=== PATIENT | male | born 1965 ===

== ENCOUNTER 2016-06-17 10:59 | Inpatient (IN) | payer MEDICAID ==
[2016-06-17] MEDS ORDERED: Sodium Chloride 0.9% 500 ML IV STA (11:40)
--- NOTE | 2016-06-17 11:42 | ED PDOC ---
HPI: General Adult Time Seen by Provider: 06/17/16 11:16 Chief Complaint (Provider): Chest pain; diziness; high blood pressure History Per: Patient History/Exam Limitations: no limitations Onset/Duration Of Symptoms: Days (1 week) Have you had recent travel within the past 21 days to any of the following countries: [place], [place], [place] or [place]?: No Current Symptoms Are (Timing): Still Present Additional Complaint(s): Off and on chest pain. Also dizziness like room spinning, worse on walking. States went to the lan manager today and sent to the ED for high BP. Unclear how high or who the lan manager is. Does not know the names of his medications he takes or what medical issues he has. No numbness, tingles, headaches, weakness, numbness, tingles. No nausea, vomit. No abd pain. NIHSS Stroke Scale - Date/Time Evaluation Performed Date Performed: 06/17/16 When Was NIHSS Performed: Baseline - How Severe is the Stroke Level of Consciousness: 0=Alert LOC to Questions: 0=Both comments correct LOC to commands: 0=Obeys both correctly Best Gaze: 0=Normal Visual: 0=No visual loss Facial: 0=Normal Motor Arm - Left: 0=No drift Motor Arm - Right: 0=No drift Motor Leg - Left: 0=No drift Motor Leg - Right: 0=No drift Limb Ataxia: 0=Absent Sensory: 0=Normal Best Language: 0=No aphasia Dysarthia: 0=Normal articulation Extinction & Inattention (Neglect): 0=Normal, no object Score: 0 rTPA Inclusion/Exclusion - Refusal of Treatment Patient Refused Treatment: No - Inclusion Criteria for Altepase Patient is 18 years or Older: Yes The Clinical Diagnosis of Ischemic Stroke That is Causing a Potentially Disabling Neurological Deficit: No Time of Onset is Well Established to be Less Than 270 Minute Before Treatment Would Begin: No Risk/Benefit Discussed With Patient/Family Member Present: Yes Past Medical History Reviewed: Nursing Documentation, Vital Signs Vital Signs: Last Vital Signs Temp 98 F 06/17/16 11:35 Pulse 80 06/17/16 13:26 Resp 20 06/17/16 13:26 BP 170/104 H 06/17/16 13:26 Pulse Ox 98 06/17/16 11:35 - Medical History PMH: HTN (noncompliant with medications), Hyperlipidemia Denies: Depression, Chronic Kidney Disease - Family History Family History: States: Unknown Family Hx Denies: IA, CAD - Social History Current smoker - smoking cessation education provided: Yes Alcohol: Other (heave drinker) Drugs: Denies - Home Medications Home Medications: Ambulatory Orders Medication Instructions Recorded Atorvastatin [Lipitor] 20 mg PO DAILY #30 tab 05/14/16 Carvedilol [Coreg] 3.125 mg PO BID #60 tab 05/14/16 amLODIPine [Norvasc] 10 mg PO DAILY #30 tab 05/14/16 Lisinopril [Zestril] 40 mg PO DAILY 06/17/16 - Allergies Allergies/Adverse Reactions: Allergies Allergy/AdvReac Type Severity Reaction Status Date / Time No Known Allergies Allergy Verified 03/25/16 21:36 Review of Systems ROS Statement: Except As Marked, All Systems Reviewed And Found Negative Cardiovascular: Positive for: Chest Pain Neurological: Positive for: Dizziness Physical Exam - Reviewed Nursing Documentation Reviewed: Yes Vital Signs Reviewed: Yes - Physical Exam Appears: Positive for: Non-toxic, No Acute Distress Head Exam: Positive for: ATRAUMATIC, NORMAL INSPECTION, NORMOCEPHALIC Skin: Positive for: Normal Color, Warm, DRY Eye Exam: Positive for: EOMI, Normal appearance, PERRL ENT: Positive for: Normal ENT Inspection Neck: Positive for: Normal, Painless ROM Cardiovascular/Chest: Positive for: Regular Rate, Rhythm Respiratory: Positive for: CNT, Normal Breath Sounds Gastrointestinal/Abdominal: Positive for: Normal Exam, Bowel Sounds, Soft. Negative for: Tenderness Back: Positive for: Normal Inspection. Negative for: L CVA Tenderness, R CVA Tenderness Extremity: Positive for: Normal ROM. Negative for: Tenderness, Pedal Edema Neurologic/Psych: Positive for: Alert, esl professor II-XII, Oriented. Negative for: Motor/Sensory Deficits, Facial Droop - Laboratory Results Result Diagrams: 06/17/16 11:57 06/17/16 11:57 Interpretation Of Abn Labs: alcohol 97 - ECG ECG: Positive for: Interpreted By Me, Viewed By Me ECG Rhythm: Positive for: Sinus Rhythm, Nonspecific Changes - Radiology X-Ray: Interpreted by Me, Viewed By Me X-Ray Interpretation: No Acute Disease - CT Scan/US ct Other Rad Studies (CT/US): Read By Radiologist Other Rad Interpretation: right corpus collosum, low attenuation - Progress ED Course And Treament: 1404: Stable. AAOx3. Pain free. Eating. Will get MRI. Spoke with [facility] resident, will admit. Pt. with findings on ct, will get MRI. Will give asa. Disposition - Clinical Impression Clinical Impression: Chest pain, Hypertension, Dizziness - Patient ED Disposition Is Patient to be Admitted: Yes Counseled Patient/Family Regarding: Studies Performed, Diagnosis - Disposition Disposition Time: 14:08 Condition: FAIR - Pt Status Changed To: Hospital Disposition Of: Observation - POA Present On Arrival: None Core Measure Indicators: Chest Pain
[2016-06-17 11:45] VITALS: BMI 21.7
[2016-06-17 12:06] LABS: BASO % 0.6 % (0.0-2.0); EOS % 0.8 % (0.0-4.0); LYMPH # 1.3 K/uL (1.0-4.3); LYMPH % 23.7 % (20.0-40.0); MEAN CORPUSCULAR HEMOGLOBIN 29.9 pg (27.0-31.0); MEAN CORPUSCULAR HGB CONC 33.6 g/dL (33.0-37.0); MEAN PLATELET VOLUME 7.1 fl (7.2-11.7); MONO # 0.5 K/uL (0.0-0.8); NEUT # 3.6 K/uL (1.8-7.0); NEUT % 65.9 % (50.0-75.0); NRBC % 0.1 % (0.0-0.0); RED CELL DISTRIBUTION WIDTH 13.4 % (11.5-14.5); WHITE BLOOD COUNT 5.5 K/uL (4.8-10.8)
[2016-06-17 12:12] LABS: ALB/GLOB RATIO 1.3 (1.0-2.1); ALCOHOL SERUM 67 mg/dl (0-10); ALKALINE PHOSPHATASE 76 U/L (38-126); ALT/SGPT 40 U/L (21-72); AST/SGOT 90 U/L (17-59); BILIRUBIN,TOTAL 1.8 mg/dl (0.2-1.3); BLOOD UREA NITROGEN 14 mg/dl (9-20); CALCIUM 9.3 mg/dL (8.4-10.2); CARBON DIOXIDE 22 mmol/L (22-30); CHLORIDE 103 mmol/L (98-107); GFR AFRICAN-AMERICAN > 60; GLUCOSE,RANDOM 85 mg/dL (75-110); LIPASE 97 U/L (23-300); SODIUM 145 mmol/l (132-148); TOTAL PROTEIN 8.6 G/DL (6.3-8.2)
[2016-06-17 12:16] LABS: POTASSIUM 4.4 MMOL/L (3.6-5.0)
--- NOTE | 2016-06-17 12:37 | CT ---
PROCEDURE: CT HEAD WITHOUT CONTRAST. HISTORY: dizzy COMPARISON: Comparison is made to the previous study dated 09/26/2014 TECHNIQUE: Axial computed tomography images were obtained through the head/brain without intravenous contrast. Radiation dose: Total exam DLP = 780.68 mGy-cm. FINDINGS: HEMORRHAGE: No intracranial hemorrhage. BRAIN: Interval appearance of focal hypodensity adjacent to the right lateral ventricle frontal horn likely involving the corpus callosum. Small foci of hypodensity seen at the basal ganglia bilaterally appear larger and more conspicuous particularly on the right compared to the previous exam. No atrophy or chronic microvascular ischemic changes. VENTRICLES: Unremarkable. No hydrocephalus. CALVARIUM: Unremarkable. PARANASAL SINUSES: Unremarkable as visualized. No significant inflammatory changes. MASTOID AIR CELLS: Unremarkable as visualized. No inflammatory changes. OTHER FINDINGS: None. IMPRESSION: New foci of low attenuation seen particularly at the right aspect of the corpus callosum adjacent to the frontal horn of the right lateral ventricle compared to the previous exam. If clinically warranted further assessment by MRI is suggested. No evidence of acute intracranial hemorrhage.
--- NOTE | 2016-06-17 15:20 | RAD ---
HISTORY: Chest pain. Technique: Single view portable erect @ 12:30. COMPARISON: 05/14/2016. FINDINGS: LUNGS: No active pulmonary disease. PLEURA: No significant pleural effusion identified, no pneumothorax apparent. CARDIOVASCULAR: No radiographic findings to suggest acute or significant cardiovascular disease. OSSEOUS STRUCTURES: No significant abnormalities. VISUALIZED UPPER ABDOMEN: Normal. OTHER FINDINGS: None. IMPRESSION: No active disease. No significant interval change compared to the prior examination(s).
--- NOTE | 2016-06-17 16:48 | MRI ---
PROCEDURE: MRI BRAIN WITH AND WITHOUT CONTRAST HISTORY: low attenuation findings on CT COMPARISON: None. TECHNIQUE: Multiplanar, multisequence MR images of the brain were obtained with and without intravenous contrast enhancement. FINDINGS: HEMORRHAGE: None DWI: No evidence of an acute or early subacute infarction. BRAIN PARENCHYMA: There is hyperintense T2 hypointense T1 nonenhancing with defined lesion seen at the anterior aspect of the corpus callosum to the right of the midline measures 9 x 5 millimeter demonstrates heterogeneous hypointense FLAIR signal. Findings are nonspecific. There are scattered nonspecific also foci of hyperintense T2 and FLAIR signal in the white matter. Mild atrophy is noted. There is also small Juxtacortical lesion at the right posterior parietal lobe demonstrates hyperintense T2 and FLAIR signal. ENHANCEMENT: No abnormal intracranial enhancement. VENTRICLES: Unremarkable. No hydrocephalus. CRANIUM: Unremarkable. ORBITS: Grossly unremarkable. PARANASAL SINUSES/MASTOIDS: Mild sinuses mucosal disease more prominent at the inferior aspect of the maxillary sinus. VASCULAR SYSTEM: Skull base flow voids intact. OTHER FINDINGS: None . IMPRESSION: Focal hypo intense T1 and hyperintense T2 signal nonenhancing lesion seen at the right aspect of the anterior corpus callosum. The differential diagnosis includes sequela of infection or inflammatory process including MS lesion. Nonspecific foci of hyperintense T2 and FLAIR signal seen in the white matter including small lesion seen at the Juxtacortical right posterior parietal lobe. Findings are also nonspecific and the differential diagnosis includes chronic microvascular white matter ischemic disease and the demyelination disease. No evidence of acute infarct. No evidence of enhancing mass lesion or other acute pathology in the brain. Mild sinuses mucosal thickening. Mild atrophy.
--- NOTE | 2016-06-17 18:40 | CP.PCM.HP ---
History of Present Illness - History of Present Illness History of Present Illness: 50 yo M w/ PMHx of ETOh abuse (last drink last night 2 big beers), uncontrolled HTN, systolic CHF (EF 40-45%) presented to Cardiology Clinic with Dr. Radha Moon, noted to have severe hypertension and was wheelchaired to ED. Of note, it was documented that patient had smell of EtOH when seen at clinic. Patient states has been having intermittent episodes of dizziness in the past week, that he states as feeling the room is spinning around him. Patient states compliance with medications and states he took it this morning. Patient states intermittent episodes of chest pain as well though unable to describe. Patient states dizziness is usually precipitated with sudden change of movement such as getting up from sittting/lying position. No other complaints at this time. Denies numbness/tingling, weakness, change of vision, shortness of breath, abdominal pain, change in urinary/bowel habits, or n/v. Patient states at times with posterior headache that starts from neck mostly right sided. Patient was given 0.1mg Clonidine in Cardiology clinic. (BP 190s/110-120s) PMD: [facility], Dr. Valentin PMHx: HTN, CHF, EtOH Abuse, Smoker Meds: * Lisinopril 40 MG Tablet 1 tablet Orally Once a day * Norvasc 10 MG Tablet 1 tablet Orally Once a day * Lipitor 20 MG Tablet 1 tablet Orally Once a day * Coreg 6.25 MG Tablet Orally Allergies: NKDA Surgical Hx: Repair of Jaw fx 08/2014 Family Hx: Mother alive with HTN. Sister with HTN. Social Hx: Unemployed. Smoker of 5 to 6 cigarettes daily since age 16. Binge drinking beer. No current drug use, though past of cocaine use. ED course: Vitals stable except of BP at 170/104 Labs unremarkable except for EtOH 67 and mildly elevated AST Clonidine 0.1mg x1, Meclizine 25mg x 1, ASA 325mg x1, Hydralazine 10mg x 1 Imaging: CT head notable for foci of corpus callosum, MRI obtained - see report for full details though concern for possible MS lesion Present on Admission - Present on Admission Any Indicators Present on Admission: No Review of Systems - Review of Systems All systems: reviewed and no additional remarkable complaints except (mentioned in HPI) Past Patient History - Infectious Disease Hx of Infectious Diseases: None - Past Social History Alcohol: Other (heave drinker) Drugs: Denies - CARDIAC Hx Hypertension: Yes (noncompliant with medications) - PULMONARY Hx Respiratory Disorders: No - HEENT Hx HEENT Problems: No - RENAL Hx Chronic Kidney Disease: No - ENDOCRINE/METABOLIC Hx Endocrine Disorders: No - HEMATOLOGICAL/ONCOLOGICAL Hx Blood Disorders: No - INTEGUMENTARY Hx Dermatological Problems: No - MUSCULOSKELETAL/RHEUMATOLOGICAL Hx Musculoskeletal Disorders: No - GASTROINTESTINAL Hx Gastrointestinal Disorders: No - GENITOURINARY/GYNECOLOGICAL Hx Genitourinary Disorders: No - PSYCHIATRIC Hx Depression: No - SURGICAL HISTORY Hx Surgeries: No - ANESTHESIA Hx Anesthesia: No Meds Allergies/Adverse Reactions: Allergies Allergy/AdvReac Type Severity Reaction Status Date / Time No Known Allergies Allergy Verified 03/25/16 21:36 Physical Exam - Constitutional Appears: Well, Non-toxic, No Acute Distress - Head Exam Head Exam: ATRAUMATIC, NORMAL INSPECTION, NORMOCEPHALIC - Eye Exam Eye Exam: EOMI, Normal appearance, PERRL. absent: Nystagmus Pupil Exam: NORMAL ACCOMODATION, PERRL - ENT Exam ENT Exam: Mucous Membranes Moist, Normal Exam Additional comments: poor dentition - Neck Exam Neck exam: Positive for: Normal Inspection. Negative for: Lymphadenopathy, Meningismus, Tenderness, Thyromegaly - Respiratory Exam Respiratory Exam: Clear to Auscultation Bilateral, NORMAL BREATHING PATTERN. absent: Decreased Breath Sounds, Rales, Rhonchi, Wheezes - Cardiovascular Exam Cardiovascular Exam: REGULAR RHYTHM, RRR, +S1, +S2 - GI/Abdominal Exam GI & Abdominal Exam: Normal Bowel Sounds, Soft. absent: Distended, Firm, Guarding, Tenderness - Extremities Exam Extremities exam: Positive for: normal inspection (with mild varicosity noted bilaterally in lower exremities), pedal pulses present. Negative for: calf tenderness, tenderness - Back Exam Back exam: NORMAL INSPECTION - Neurological Exam Neurological exam: Alert, CN II-XII Intact, Normal Gait, Oriented x3, Reflexes Normal - Expanded Neurological Exam Expanded Patient oriented to: person, place, time Cranial nerves: EOM's Intact: Normal, Facial Sensation: Normal, Nystagmus: Normal Ataxia: No Cerebellar Function: Finger to Nose: Normal, Heel to Vogel: Normal Upper motor neuron: Pronator Drift: Normal Sensory exam: Lower Extremity Light Touch: Normal, Upper Extremity Light Touch: Normal Neuro motor strength exam: Left Upper Extremity: 5, Right Upper Extremity: 5, Left Lower Extremity: 5, Right Lower Extremity: 5 DTR: Achilles Tendon Left: 2+, Achilles Tendon Right: 2+, Bicep Left: 2+, Bicep Right: 2+, Brachioradialis Left: 2+, Brachioradialis Right: 2+, Patellar Left: 2 +, Patellar Right: 2+, Tricep Left: 2+, Tricep Right: 2+ Coma Scale Eye Opening: SPONTANEOUS Coma Scale Motor Response: OBEYS COMMANDS Coma Scale Verbal: Oriented Coma Scale Total: 15 - Psychiatric Exam Psychiatric exam: Normal Affect, Normal Mood - Skin Skin Exam: Dry, Intact, Normal Color, Warm Results - Vital Signs Recent Vital Signs: Last Vital Signs Temp 98 F 06/17/16 16:48 Pulse 80 06/17/16 18:18 Resp 20 06/17/16 18:18 BP 139/70 06/17/16 18:18 Pulse Ox 98 06/17/16 11:35 - Labs Result Diagrams: 06/17/16 11:57 06/17/16 11:57 Assessment & Plan (1) Dizziness Status: Acute (2) Lesion of brain Status: Acute (3) Hypertension Status: Chronic (4) Heart failure Status: Chronic (5) DVT prophylaxis Status: Acute - Assessment and Plan (Free Text) Assessment: 50 yo M w/ PMHx of ETOh abuse (last drink last night 2 big beers), uncontrolled HTN, systolic CHF (EF 40-45%) with hypertensive urgency and lesion of corpus callosum noted associated with dizziness. Plan: (1) Dizziness - Unknown etiology at this time - PE remarkable for dizziness on change of position from lying/sitting position though without nystagmus noted - Neuro exam unremarkable though equivocal Romberg test - Patient's intoxication may skew examination findings - Will continue to monitor and have fall precautions while admitted - Neurology on board - Continue to monitor vitals - Obtain Orthostatic vital signs - Labs ordered for 2ndary causes, follow up (2) Lesion of brain - CT head and MRI noted lesion of right corpus callosum possible MS? lesion : see report/imaging for further details - Neurology consulted, spoke with Dr. Patel, will evaluate patient though recommends to treat as minor stroke 2ndary to hypertensive urgency - s/p ASA 325mg x1 and Plavix 300mg x 1 - ASA 81mg PO daily - Plavix 75mg PO daily - IF patient is found to have a minor ischemic stroke as determined by neurologist the following treatment can be considered: * According to CHANCE trial: "Among patients with high-risk TIA or minor ischemic stroke who are initially seen within 24 hours after symptom onset, treatment with clopidogrel plus aspirin for 21 days, followed by clopidogrel alone for a total of 90 days, is superior to aspirin alone in reducing the risk of subsequent stroke events. The combination of clopidogrel with aspirin did not cause more hemorrhagic events in this patient population than aspirin alone. " (3) Hypertension - uncontrolled, though now stable at 150/70s - Continue current medications at this time and adjust accordingly - Amlodipine 10mg PO daily - Continuous cardiac monitoring via telemetry - Due to intermittent chest pain, will rule out ACS with serial troponins (4) Heart failure - Chronic, no signs of current exacerbation - Echo 09/2015 - EF 40-45% with global hypokinesis of LV. Mild AR. Mild concentric LVH. - Continue current home meds at this time - Coreg 3.125mg PO BID - Lisinopril 40mg PO daily - Lipitor 20mg PO daily (5) DVT prophylaxis - Lovenox 40mg SC daily
--- NOTE | 2016-06-17 20:19 | CP.PCM.CON ---
History of Present Illness - History of Present Illness History of Present Illness: Mr. Scott is a 50-year-old man with a past medical history of alcohol abuse, uncontrolled hypertension and systolic heart failure, who presented to the ED with complaints of dizziness. His initial BP was elevated to the 190/120's range. CT scan of the head was done and did not show any acute findings. Subsequently, an MRI of the brain was done and showed chronic ischemic disease as well as previous infarcts. Neurology was called to evaluate and assist with the management and care. Review of Systems - Review of Systems Systems not reviewed;Unavailable: Acuity of Condition All systems: reviewed and no additional remarkable complaints except - Constitutional Constitutional: As Per HPI - EENT Eyes: As Per HPI Ears: As Per HPI - Cardiovascular Cardiovascular: As Per HPI - Respiratory Respiratory: As Per HPI - Gastrointestinal Gastrointestinal: As Per HPI - Neurological Neurological: Abnormal Gait, Dizziness, Headaches, Tingling, Vertigo Past Patient History - Infectious Disease Hx of Infectious Diseases: None - Past Medical History & Family History Past Medical History?: Yes - Past Social History Smoking Status: Former Smoker Alcohol: Occasional (heave drinker) Drugs: Denies - CARDIAC Hx Hypertension: Yes (noncompliant with medications) - PULMONARY Hx Respiratory Disorders: No - HEENT Hx HEENT Problems: No - RENAL Hx Chronic Kidney Disease: No - ENDOCRINE/METABOLIC Hx Endocrine Disorders: No - HEMATOLOGICAL/ONCOLOGICAL Hx Blood Disorders: No - INTEGUMENTARY Hx Dermatological Problems: No - MUSCULOSKELETAL/RHEUMATOLOGICAL Hx Musculoskeletal Disorders: No - GASTROINTESTINAL Hx Gastrointestinal Disorders: No - GENITOURINARY/GYNECOLOGICAL Hx Genitourinary Disorders: No - PSYCHIATRIC Hx Depression: No - SURGICAL HISTORY Hx Surgeries: No - ANESTHESIA Hx Anesthesia: No Meds Allergies/Adverse Reactions: Allergies Allergy/AdvReac Type Severity Reaction Status Date / Time No Known Allergies Allergy Verified 03/25/16 21:36 - Medications Medications: Current Medications Amlodipine Besylate (Norvasc) 10 mg PO DAILY [facility] Atorvastatin Calcium (Lipitor) 20 mg PO DAILY [facility] Carvedilol (Coreg) 3.125 mg PO BID [facility] Enoxaparin Sodium (Lovenox) 40 mg SC DAILY [facility] PRN Reason: Protocol Lisinopril (Zestril) 40 mg PO DAILY [facility] Physical Exam - Constitutional Appears: No Acute Distress - Head Exam Head Exam: ATRAUMATIC - Eye Exam Eye Exam: Conjunctival injection - Neck Exam Neck exam: Positive for: Full Rom - Respiratory Exam Respiratory Exam: Clear to Auscultation Bilateral, NORMAL BREATHING PATTERN - Cardiovascular Exam Cardiovascular Exam: Tachycardia - GI/Abdominal Exam GI & Abdominal Exam: Normal Bowel Sounds, Soft. absent: Tenderness - Rectal Exam Rectal Exam: Deferred - Neurological Exam Neurological exam: Alert, CN II-XII Intact, Normal Gait, Oriented x3, Reflexes Normal Additional comments: Strength was symmetrical throughout, sensation was intact to LT/P/T. Plantar response was downgoing bilaterally, Romberg was negative. Results - Vital Signs Recent Vital Signs: Last Vital Signs Temp 98 F 06/17/16 16:48 Pulse 78 06/17/16 19:06 Resp 20 06/17/16 19:06 BP 150/60 06/17/16 19:06 Pulse Ox 98 06/17/16 11:35 - Labs Result Diagrams: 06/17/16 11:57 06/17/16 11:57 - Imaging and Cardiology MRI - head Status: Image reviewed by me Additional comment: Consistent with small vessel disease as well as previous ischemic strokes bilaterally, but mostly involving the left basal ganglia region. Assessment & Plan (1) Dizziness Status: Acute Comment: Likely due to accelerated hypertension. However, due to the history of TIA like symptoms, would recommend permissive hypertension for the first 34- 36 hours. Do not treat unless SBP is higher than 170 mm Hg, or DBP is higher than 110 mm Hg. (2) Lesion of brain Status: Acute Comment: Likely chronic small vessel disease and possibly some embolic etiology in the distal right cortical region due to systolic heart failure. The plan is to start aspirin 81 mg daily as well as Plavix 75 mg daily for a total of 21 days, then continue aspirin 81 mg daily indefinitely. 1. CTA of the head and neck is recommended to evaluate the vasculature. 2. Telemetry and prolonged cardiac monitoring. 3. Statin to maintain LDL less than 100. 5. Echocardiogram with bubble study. 6. PT/OT. 7. Case management consult for life-style modification. (3) Hypertensive urgency Status: Acute Comment: May start to normalize BP after 24-36 hours. Recommend the use of CCB and Beta-pavan unless contraindicated.
[2016-06-17 20:44] LABS: THYROID STIMULATING HORMONE 2.02 mIU/ML (0.46-4.68)
[2016-06-18 07:24] LABS: ALB/GLOB RATIO 1.4 (1.0-2.1); ALKALINE PHOSPHATASE 61 U/L (38-126); ALT/SGPT 41 U/L (21-72); AST/SGOT 70 U/L (17-59); BILIRUBIN,TOTAL 1.9 mg/dl (0.2-1.3); BLOOD UREA NITROGEN 15 mg/dl (9-20); CALCIUM 9.7 mg/dL (8.4-10.2); CARBON DIOXIDE 25 mmol/L (22-30); CHLORIDE 104 mmol/L (98-107); GFR AFRICAN-AMERICAN > 60; GLUCOSE,RANDOM 95 mg/dL (75-110); SODIUM 141 mmol/l (132-148); TOTAL PROTEIN 7.5 G/DL (6.3-8.2)
[2016-06-18 08:56] LABS: BASO % 0.8 % (0.0-2.0); EOS # 0.2 K/uL (0.0-0.7); EOS % 3.8 % (0.0-4.0); HEMATOCRIT 38.6 % (35.0-51.0); LYMPH # 1.3 K/uL (1.0-4.3); LYMPH % 26.6 % (20.0-40.0); MEAN CELL VOLUME 89.6 fl (80.0-94.0); MEAN CORPUSCULAR HEMOGLOBIN 29.9 pg (27.0-31.0); MEAN CORPUSCULAR HGB CONC 33.4 g/dL (33.0-37.0); MEAN PLATELET VOLUME 7.6 fl (7.2-11.7); MONO # 0.6 K/uL (0.0-0.8); MONO % 13.4 % (0.0-10.0); NEUT # 2.6 K/uL (1.8-7.0); NEUT % 55.4 % (50.0-75.0); NRBC % 0.2 % (0.0-0.0); RED CELL DISTRIBUTION WIDTH 13.1 % (11.5-14.5); WHITE BLOOD COUNT 4.7 K/uL (4.8-10.8)
[2016-06-18] MEDS: Enoxaparin 40 mg Syringe SC SCH (10:03)
[2016-06-18] MEDS ORDERED: Multivitamin (MVI) 10 ML, Folic Acid 1 MG, Thiamine 100 MG in Dextrose 5%/0.45% NS 1,00... IV ONE (11:22)
--- NOTE | 2016-06-18 11:47 | CARD ---
APPROVED REPORT EKG Measurement Heart [id number] <Conclusion> Normal sinus rhythm Minimal voltage criteria for LVH, may be normal variant Nonspecific T wave abnormality Prolonged QT Abnormal ECG
[2016-06-18 12:25] LABS: FOLATE 9.3 ng/mL
[2016-06-18 13:03] LABS: 18 KD (IGG) BAND Reactive (()); 23 KD (IGG) BAND Nonreactive (()); 23 KD (IGM) BAND Reactive (()); 28 KD (IGG) BAND Nonreactive (()); 30 KD (IGG) BAND Nonreactive (()); 39 KD (IGG) BAND Nonreactive (()); 39 KD (IGM) BAND Nonreactive (()); 41 KD (IGG) BAND Nonreactive (()); 41 KD (IGM) BAND Nonreactive (()); 45 KD (IGG) BAND Nonreactive (()); 58 KD (IGG) BAND Nonreactive (()); 66 KD (IGG) BAND Nonreactive (()); 93 KD (IGG) BAND Nonreactive (()); LYME DISEASE INTERP (IGG) Negative (Negative)
[2016-06-18] MEDS ORDERED: Sodium Chloride 0.9% 50 ML IV ONE (13:05)
[2016-06-18] MEDS ORDERED: Iodixanol 320 MG/ML 100 ML BOTTLE IV ONE (13:06)
--- NOTE | 2016-06-18 15:21 | CP.PCM.PN ---
Subjective - Date & Time of Evaluation Date of Evaluation: 06/18/16 Time of Evaluation: 12:30 - Subjective Subjective: Mr. Scott was seen and examined today at bedside. He continued to complain of vertigo and light headedness. He denied any other new symptoms. He did not have headache, nausea, new weakness, sensory changes, gait difficulty or visual changes. Objective - Vital Signs/Intake and Output Vital Signs (last 24 hours): Temp Pulse Resp BP Pulse Ox 97.8 F 62 12 139/99 H 98 06/18/16 06:13 06/18/16 12:14 06/18/16 12:14 06/18/16 12:14 06/18/16 12:14 - Medications Medications: Current Medications Amlodipine Besylate (Norvasc) 10 mg PO DAILY [facility] Last Admin: 06/18/16 10:04 Dose: 10 mg Aspirin (Aspirin Chewable) 81 mg PO DAILY [facility] Last Admin: 06/18/16 10:03 Dose: 81 mg Atorvastatin Calcium (Lipitor) 20 mg PO DAILY [facility] Last Admin: 06/18/16 10:03 Dose: 20 mg Carvedilol (Coreg) 3.125 mg PO BID [facility] Last Admin: 06/18/16 10:03 Dose: 3.125 mg Clopidogrel Bisulfate (Plavix) 75 mg PO DAILY [facility] Last Admin: 06/18/16 10:04 Dose: 75 mg Enoxaparin Sodium (Lovenox) 40 mg SC DAILY [facility] PRN Reason: Protocol Last Admin: 06/18/16 10:03 Dose: 40 mg Multivitamins/Vitamin C 10 ml/Folic Acid 1 mg/ Thiamine HCl 100 mg/ Dextrose/ Sodium Chloride 1,011.2 mls @ 120 mls/hr IV .[id number] ONE Stop: 06/18/16 19:47 Lisinopril (Zestril) 40 mg PO DAILY [facility] Last Admin: 06/18/16 10:05 Dose: 40 mg - Labs Labs: 06/18/16 07:00 06/18/16 05:40 - Constitutional Appears: Well - Head Exam Head Exam: ATRAUMATIC, NORMOCEPHALIC - Eye Exam Eye Exam: EOMI, Normal appearance, PERRL Pupil Exam: NORMAL ACCOMODATION, PERRL - Cardiovascular Exam Cardiovascular Exam: REGULAR RHYTHM, +S1, +S2. absent: Murmur - Neurological Exam Neurological Exam: Alert, Awake, CN II-XII Intact, Normal Gait, Oriented x3 Neuro motor strength exam: Left Upper Extremity: 5, Right Upper Extremity: 5, Left Lower Extremity: 5, Right Lower Extremity: 5 Additional comments: No sensory deficits noted. Assessment and Plan (1) Dizziness Status: Acute (2) Lesion of brain Assessment & Plan: Likely due to hypertensive episode, systolic heart failure and embolic appearing infarcts that are subacute and chronic. Continue stroke work-up, antiplatelet therapy and cardiac work-up. Status: Acute (3) Hypertensive urgency Assessment & Plan: Will follow CTA of the head and neck to determine if the etiology is vascular in origin. Status: Acute
[2016-06-19] MEDS ORDERED: Pneumococcal 23-Valent Vaccine IM ONE (06:30)
[2016-06-19] MEDS: Enoxaparin 40 mg Syringe SC SCH (10:15)
--- NOTE | 2016-06-19 11:00 | CT ---
PROCEDURE: CT Angiography of the Brain. HISTORY: Chronic stroke to rule out vessel stenosis/occlus COMPARISON: None available. TECHNIQUE: CT angiography of the intracranial arteries was performed. Coronal and sagittal maximum intensity projection reformated images were generated. FINDINGS: INTERNAL CEREBRAL ARTERIES: The distal right internal carotid artery is tortuous. . The skull base, petrous, cavernous and supraclinoid segments are bilaterally widely patient. ANTERIOR CEREBRAL ARTERIES: Mild irregularity likely due to atherosclerotic disease seen bilaterally. . A1 and A2 segments are widely patent. Smaller distal branches unremarkable, as visualized. MIDDLE CEREBRAL ARTERIES: Unremarkable. M1 and M2 segments are widely patent. Perisylvian branches grossly symmetric. POSTERIOR CIRCULATION: Basilar Artery: Unremarkable. Distal Vertebral Arteries: The distal right vertebral artery is smaller than the left. Posterior Cerebral Arteries: Unremarkable. Posterior Inferior Cerebellar Arteries: Unremarkable. ANEURYSM/ VASCULAR MALFORMATIONS: None. OTHER FINDINGS: [id number] sinuses mucosal disease. IMPRESSION: Suboptimal study. No evidence of focal significant stenosis or occlusion in the visualized intracranial arteries. Mild diffuse irregularity seen likely due to atherosclerotic disease. Tortuous distal right internal carotid artery seen looping in adjacent to the cavernous sinus.
--- NOTE | 2016-06-19 11:06 | CT ---
PROCEDURE: CT Angiography of the neck with contrast HISTORY: CT angiogram to evaluate stenosis/occlusion COMPARISON: None available. TECHNIQUE: Contiguous axial images of the neck were obtained from the level of the skull-base to the superior mediastinum in the arteriographic phase of enhancement. Coronal and sagittal reformats or also generated. CTA of the head was obtained concurrently and reported separately. IV contrast dose: 100 mL Visipaque 320 Radiation Dose - DLP: 2299.9 mGy-cm FINDINGS: RIGHT CAROTID ARTERIES: Common Carotid Artery: Normal. Carotid Bifurcation: Normal. Internal Carotid Artery:Normal. External Carotid Artery (proximal branches): Normal. LEFT CAROTID ARTERIES: Common Carotid Artery: Normal. Carotid Bifurcation: Normal. Internal Carotid Artery:Normal. External Carotid Artery (proximal branches): Normal. VERTEBRAL ARTERIES: Right Vertebral Artery: Normal. Left Vertebral Artery: Normal. OTHER FINDINGS: None. IMPRESSION: No evidence of significant stenosis or occlusion in the visualized carotid artery at the neck. The left vertebral artery is larger than the right.
[2016-06-19 11:44] LABS: ALB/GLOB RATIO 1.3 (1.0-2.1); ALKALINE PHOSPHATASE 62 U/L (38-126); ALT/SGPT 41 U/L (21-72); AST/SGOT 76 U/L (17-59); BILIRUBIN,TOTAL 1.4 mg/dl (0.2-1.3); BLOOD UREA NITROGEN 12 mg/dl (9-20); CARBON DIOXIDE 27 mmol/L (22-30); CHLORIDE 102 mmol/L (98-107); CHOLESTEROL 159 mg/dL (0-199); GFR AFRICAN-AMERICAN > 60; GLUCOSE,RANDOM 73 mg/dL (75-110); POTASSIUM 4.1 MMOL/L (3.6-5.0); SODIUM 144 mmol/l (132-148); TOTAL PROTEIN 8.1 G/DL (6.3-8.2)
[2016-06-19 12:44] VITALS: RESP 18
--- NOTE | 2016-06-19 12:49 | CARD ---
APPROVED REPORT EXAM: Two-dimensional and M-mode echocardiogram with Doppler and color Doppler. Other Information Quality : GoodRhythm : NSR INDICATION Dizziness and Vertigo Chest Pain 2D DIMENSIONS IVSd1.46 (0.7-1.1cm)LVDd5.12 (3.9-5.9cm) LVOT Diameter2.17 (1.8-2.4cm)PWd1.08 (0.7-1.1cm) IVSs1.51 (0.8-1.2cm)LVDs3.65 (2.5-4.0cm) FS (%) 28.7 %PWs1.47 (0.8-1.2cm) M-Mode DIMENSIONS Left Atrium (MM)4.82 (2.5-4.0cm)IVSd1.26 (0.7-1.1cm) Aortic Root3.28 (2.2-3.7cm)LVDd5.45 (4.0-5.6cm) Aortic Cusp Exc.2.38 (1.5-2.0cm)PWd1.36 (0.7-1.1cm) IVSs2.06 cmFS (%) 42 % LVDs3.18 (2.0-3.8cm)PWs1.82 cm Mitral Valve MV E Wmemyffx01.3cm/sMV DECEL [id number] A Nrhvimyx30.5cm/s MV HWE427hrW/A ratio0.7MVA (PHT)1.92cm2 TDI E/Lateral E'0.0E/Medial E'0.0 Pulmonary Valve PV Peak Mbmoejlt318.8cm/s LEFT VENTRICLE The left ventricle is normal size. There is normal left ventricular wall thickness. The left ventricular function is normal. The left ventricular ejection fraction is within the normal range. The Ejection Fraction is 65-70%. There is normal LV segmental wall motion. The left ventricular diastolic function is normal. No left ventricle thrombus noted on this study. There is no mass noted in the left ventricle. RIGHT VENTRICLE The right ventricle is normal size. There is normal right ventricular wall thickness. The right ventricular systolic function is normal. ATRIA The left atrium size is normal. The right atrium size is normal. The interatrial septum is intact with no evidence for an atrial septal defect. AORTIC VALVE The aortic valve is normal in structure and function. No aortic regurgitation is present. There is no aortic valvular stenosis. There is no aortic valvular vegetation. MITRAL VALVE The mitral valve is normal in structure and function. There is no evidence of mitral valve prolapse. There is no mitral valve stenosis. There is no mitral valve regurgitation noted. TRICUSPID VALVE The tricuspid valve is normal in structure and function. There is no tricuspid valve regurgitation noted. There is no tricuspid valve prolapse or vegetation. There is no tricuspid valve stenosis. PULMONIC VALVE The pulmonary valve is normal in structure and function. There is no pulmonic valvular regurgitation. There is no pulmonic valvular stenosis. GREAT VESSELS The aortic root is normal in size. The IVC is normal in size and collapses >50% with inspiration. PERICARDIAL EFFUSION The pericardium appears normal. There is no pleural effusion. <Conclusion> The left ventricle is normal size. The left ventricular function is normal. The left ventricular ejection fraction is within the normal range. The Ejection Fraction is 65-70%.
--- NOTE | 2016-06-19 15:31 | CP.PCM.PN ---
Subjective - Date & Time of Evaluation Date of Evaluation: 06/19/16 Time of Evaluation: 14:00 - Subjective Subjective: Mr. Scott was seen and examined today at bedside. He denied having any dizziness, headache, nausea or new weakness. There were no acute events overnight. He said that when he walked with PT today, he his BP had spiked again. Objective - Vital Signs/Intake and Output Vital Signs (last 24 hours): Temp Pulse Resp BP Pulse Ox 98.2 F 59 L 18 170/70 H 98 06/19/16 12:44 06/19/16 12:44 06/19/16 12:44 06/19/16 13:24 06/19/16 12:44 - Medications Medications: Current Medications Amlodipine Besylate (Norvasc) 10 mg PO DAILY [facility] Last Admin: 06/19/16 10:16 Dose: 10 mg Aspirin (Aspirin Chewable) 81 mg PO DAILY [facility] Last Admin: 06/19/16 10:15 Dose: 81 mg Atorvastatin Calcium (Lipitor) 20 mg PO DAILY [facility] Last Admin: 06/19/16 10:15 Dose: 20 mg Carvedilol (Coreg) 12.5 mg PO BID [facility] Clopidogrel Bisulfate (Plavix) 75 mg PO DAILY [facility] Last Admin: 06/19/16 10:16 Dose: 75 mg Enoxaparin Sodium (Lovenox) 40 mg SC DAILY [facility] PRN Reason: Protocol Last Admin: 06/19/16 10:15 Dose: Not Given Lisinopril (Zestril) 40 mg PO DAILY [facility] Last Admin: 06/19/16 10:16 Dose: 40 mg - Labs Labs: 06/19/16 11:20 - Constitutional Appears: Well, No Acute Distress - Head Exam Head Exam: ATRAUMATIC, NORMAL INSPECTION, NORMOCEPHALIC - Eye Exam Eye Exam: EOMI, Normal appearance, PERRL Pupil Exam: NORMAL ACCOMODATION, PERRL - Neurological Exam Neurological Exam: Alert, Awake, CN II-XII Intact, Normal Gait, Oriented x3 Neuro motor strength exam: Left Upper Extremity: 5, Right Upper Extremity: 5, Left Lower Extremity: 5, Right Lower Extremity: 5 Assessment and Plan (1) Dizziness Status: Resolved (2) Lesion of brain Assessment & Plan: Will require good follow-up from cardiology to improve functional outcome. Discussed adherence to medications, cessation from alcohol use, exercise, life- style modification and diet. Continue dual antiplatelet therapy per the CHANCE trial for 21 days and may then continue Plavix 75 mg daily, indefinitely. Status: Acute (3) Hypertensive urgency Status: Resolved
[2016-06-19 16:07] VITALS: BP 162/96; PULSE 70; TEMP 97.6; O2SAT 99
--- NOTE | 2016-06-19 17:23 | CP.PCM.PCO ---
Assessment/Plan - Assessment and Plan (Free Text) Assessment: I saw and evaluated the patient. I discussed the case with the resident and agree with the findings and plan as documented in the resident's note
== END 2016-06-19 17:22 | disposition home or self-care (01) | DRG 543 ==
LOC: H.ER 10:59 → H.ERHOLD 14:07 → OBSVTOIN 06-18 16:57 → H.TEL 06-18 22:26
PROVIDERS: ADMIT Family Medicine Geriatric Medicine; ATTEND Family Medicine Geriatric Medicine
PROC: 3E0234Z Introduction of Serum, Toxoid and Vaccine into Muscle, Percutaneous Approach (ICD-10-PCS; principal; 2016-06-19)
DX: I16.0 Hypertensive urgency (principal); I50.22 Chronic systolic (congestive) heart failure; I11.0 Hypertensive heart disease with heart failure; F17.210 Nicotine dependence, cigarettes, uncomplicated; Z91.14 Patient's other noncompliance with medication regimen; E78.5 Hyperlipidemia, unspecified; G93.9 Disorder of brain, unspecified; F10.129 Alcohol abuse with intoxication, unspecified; Y90.3 Blood alcohol level of 60-79 mg/100 ml; Z23 Encounter for immunization

== ENCOUNTER 2016-06-24 14:38 | Emergency (ER) | payer MEDICAID ==
[2016-06-24 14:38] VITALS: BMI 21.7
[2016-06-24 14:50] VITALS: RESP 18
--- NOTE | 2016-06-24 15:02 | ED PDOC ---
HPI: Hypertension/Hypotension Time Seen by Provider: 06/24/16 15:00 Chief Complaint (Nursing): High Blood Pressure Chief Complaint (Provider): high blood pressure History Per: Patient Additional Complaint(s): 50-year-old male presents to emergency department with elevated blood pressure. He was seen at clinic today and BP was elevated so he was sent to ED by clinic resident. Patient states that he has been compliant with his hypertension medications which include norvasc, coreg and lisinopril. He denies any chest pain, shortness of breath or dyspnea on exertion upon arrival. He also denies headache, dizziness or vision changes. Patient has history of alcohol abuse but states he has not had a drink in a few days. Past Medical History Reviewed: Historical Data, Nursing Documentation, Vital Signs Vital Signs: Last Vital Signs Temp 97.9 F 06/24/16 14:45 Pulse 64 06/24/16 14:45 Resp 18 06/24/16 14:45 BP 161/106 H 06/24/16 14:45 Pulse Ox 99 06/24/16 14:45 - Medical History PMH: Depression, HTN, Hypercholesterolemia, Hyperlipidemia - Family History Family History: States: Unknown Family Hx, Hypertension Denies: [place], CAD - Living Arrangements Living Arrangements: With Family - Social History Current smoker - smoking cessation education provided: Yes (5-6 cigarettes per day) Alcohol: Other (h/o binge drinking) Drugs: Denies, Cocaine (in the past) - Home Medications Home Medications: Ambulatory Orders Medication Instructions Recorded Aspirin [Aspirin Chewable] 81 mg PO DAILY #30 chew 06/19/16 Atorvastatin [Lipitor] 40 mg PO DAILY #30 tab 06/19/16 Carvedilol [Coreg] 12.5 mg PO BID #60 tab 06/19/16 Clopidogrel [Plavix] 75 mg PO DAILY #30 tab 06/19/16 Lisinopril [Zestril] 40 mg PO DAILY #30 tab 06/19/16 amLODIPine [Norvasc] 10 mg PO DAILY #30 tab 06/19/16 Aspirin [[place] Aspirin] 81 mg PO DAILY #90 tab.chew 06/24/16 Clopidogrel [Plavix] 75 mg PO DAILY #30 tab 06/24/16 - Allergies Allergies/Adverse Reactions: Allergies Allergy/AdvReac Type Severity Reaction Status Date / Time No Known Allergies Allergy Verified 03/25/16 21:36 Review of Systems ROS Statement: Except As Marked, All Systems Reviewed And Found Negative Constitutional: Positive for: Other (BP elevated). Negative for: Fever Cardiovascular: Negative for: Chest Pain Respiratory: Negative for: Cough Gastrointestinal: Negative for: Nausea, Vomiting Neurological: Negative for: Weakness, Altered Mental Status, Headache, Dizziness Physical Exam - Reviewed Nursing Documentation Reviewed: Yes Vital Signs Reviewed: Yes - Physical Exam Appears: Positive for: Well, Non-toxic, No Acute Distress Skin: Negative for: Rash Eye Exam: Positive for: Normal appearance, EOMI, PERRL Neck: Positive for: Normal Cardiovascular/Chest: Positive for: Regular Rate, Rhythm Respiratory: Positive for: Normal Breath Sounds Neurologic/Psych: Positive for: Alert, Oriented, Gait (steady). Negative for: Motor/Sensory Deficits, Aphasia, Facial Droop - Laboratory Results Result Diagrams: 06/24/16 16:17 06/24/16 16:17 - ECG Interpretation Of ECG: Sinus bradycardia 57 bpm, no acute change, reviewed by PA and ED attending O2 Sat by Pulse Oximetry: 99 Pulse Ox Interpretation: Normal Medical Decision Making Medical Decision Makin50 year old sent by clinic with elevate BP Plan: EKG CBC CMP Trop IVF PO clonidine bedside chest BP upon arrival 161/106 Repeat BP after meds: 139/86 Patient is currently on norvasc, lisinopril and coreg for BP and he was told to continue with these meds. Dr. Montoya, family practice resident states to send patient home with rx plavix and aspirin and she will see patient this week in clinic on . Disposition - Clinical Impression Clinical Impression: Hypertension - Patient ED Disposition Is Patient to be Admitted: No Counseled Patient/Family Regarding: Studies Performed, Diagnosis, Need For Followup - Disposition Referrals: [facility] [Outside] Disposition: Routine/Home Disposition Time: 17:36 Condition: IMPROVED Additional Instructions: Continue with current blood pressure medications. Take prescriptions as directed. Follow up this coming in clinic. Prescriptions: Clopidogrel [Plavix] 75 mg PO DAILY #30 tab Aspirin [[place] Aspirin] 81 mg PO DAILY #90 tab.chew Instructions: Hypertension (ED) Results - Lab Results Lab Results: 06/24/16 16:17 WBC 4.6 L RBC 4.42 Hgb 13.1 Hct 40.0 MCV 90.6 MCH 29.6 MCHC 32.6 L RDW 13.1 Plt Count 202 MPV 7.8 Neut % (Auto) 48.0 L Lymph % (Auto) 30.7 Hitchcock % (Auto) 15.2 H Eos % (Auto) 5.1 H Baso % (Auto) 1.0 Neut # 2.2 Lymph # 1.4 Hitchcock # 0.7 Eos # 0.2 Baso # 0.0 Sodium 144 Potassium 3.9 Chloride 103 Carbon Dioxide 25 Anion Gap 20 BUN 15 Creatinine 1.0 Est GFR ( Amer) > 60 Est GFR (Non-Af Amer) > 60 Random Glucose 83 Calcium 9.5 Total Bilirubin 0.9 AST 66 H ALT 42 Alkaline Phosphatase 67 Troponin I < 0.0120 Total Protein 8.4 H Albumin 4.8 Globulin 3.6 Albumin/Globulin Ratio 1.3 Urine Opiates Screen Negative Urine Methadone Screen Negative Ur Barbiturates Screen Negative Ur Phencyclidine Scrn Negative Ur Amphetamines Screen Negative U Benzodiazepines Scrn Negative U Oth Cocaine Metabols Negative U Cannabinoids Screen Negative Alcohol, Quantitative < 10
[2016-06-24] MEDS ORDERED: Sodium Chloride 0.9% 1,000 ML IV STA (15:06)
[2016-06-24 16:26] LABS: EOS # 0.2 K/uL (0.0-0.7); EOS % 5.1 % (0.0-4.0); LYMPH # 1.4 K/uL (1.0-4.3); LYMPH % 30.7 % (20.0-40.0); MEAN CELL VOLUME 90.6 fl (80.0-94.0); MEAN CORPUSCULAR HEMOGLOBIN 29.6 pg (27.0-31.0); MEAN CORPUSCULAR HGB CONC 32.6 g/dL (33.0-37.0); MEAN PLATELET VOLUME 7.8 fl (7.2-11.7); MONO # 0.7 K/uL (0.0-0.8); MONO % 15.2 % (0.0-10.0); NEUT # 2.2 K/uL (1.8-7.0); RED CELL DISTRIBUTION WIDTH 13.1 % (11.5-14.5); WHITE BLOOD COUNT 4.6 K/uL (4.8-10.8)
[2016-06-24 16:46] LABS: ALB/GLOB RATIO 1.3 (1.0-2.1); ALCOHOL SERUM < 10 mg/dl (0-10); ALKALINE PHOSPHATASE 67 U/L (38-126); ALT/SGPT 42 U/L (21-72); AST/SGOT 66 U/L (17-59); BILIRUBIN,TOTAL 0.9 mg/dl (0.2-1.3); BLOOD UREA NITROGEN 15 mg/dl (9-20); CALCIUM 9.5 mg/dL (8.4-10.2); CARBON DIOXIDE 25 mmol/L (22-30); CHLORIDE 103 mmol/L (98-107); GFR AFRICAN-AMERICAN > 60; GLUCOSE,RANDOM 83 mg/dL (75-110); POTASSIUM 3.9 MMOL/L (3.6-5.0); SODIUM 144 mmol/l (132-148); TOTAL PROTEIN 8.4 G/DL (6.3-8.2)
[2016-06-24 18:01] VITALS: BP 139/86; PULSE 81; TEMP 98
[2016-06-24 18:46] VITALS: O2SAT 99
--- NOTE | 2016-06-25 10:35 | RAD ---
HISTORY: Medical clearance. COMPARISON: 06/17/2016. FINDINGS: LUNGS: No active pulmonary disease. PLEURA: No significant pleural effusion identified, no pneumothorax apparent. CARDIOVASCULAR: No radiographic findings to suggest acute or significant cardiovascular disease. OSSEOUS STRUCTURES: No significant abnormalities. VISUALIZED UPPER ABDOMEN: Normal. OTHER FINDINGS: None. IMPRESSION: No active disease. No significant interval change compared to the prior examination(s).
--- NOTE | 2016-06-25 18:33 | CARD ---
APPROVED REPORT EKG Measurement Heart [id number] <Conclusion> Sinus bradycardia Moderate voltage criteria for LVH, may be normal variant Nonspecific T wave abnormality Abnormal ECG
== END 2016-06-24 18:00 | disposition home or self-care (01) ==
LOC: H.ER 14:38
DX: I10 Essential (primary) hypertension (principal); F17.210 Nicotine dependence, cigarettes, uncomplicated; E78.00 Pure hypercholesterolemia, unspecified; E78.5 Hyperlipidemia, unspecified

== ENCOUNTER 2016-09-07 23:24 | Emergency (ER) | payer MEDICAID ==
[2016-09-07 23:24] VITALS: BMI 21.7
[2016-09-07 23:29] VITALS: TEMP 97.5
--- NOTE | 2016-09-07 23:51 | ED PDOC ---
HPI: Psych/Substance Abuse Time Seen by Provider: 09/07/16 23:37 Chief Complaint (Nursing): Alcohol Ingestion Chief Complaint (Provider): ETOH History Per: Patient Additional Complaint(s): 50 yo M w/ PMHx of ETOh abuse (last drink last night 2 big beers he states), uncontrolled HTN, systolic CHF (EF 40-45%) presented to ED for evaluation of ETOH intoxication. No physical complaints at this time. Pt noted to be Hypertensive in triage at his time and admits to not taking his medications today. PMD: [facility], Dr. Valentin PMHx: HTN, CHF, EtOH Abuse, Smoker Meds: * Lisinopril 40 MG Tablet 1 tablet Orally Once a day * Norvasc 10 MG Tablet 1 tablet Orally Once a day * Lipitor 20 MG Tablet 1 tablet Orally Once a day * Coreg 6.25 MG Tablet Orally Allergies: NKDA Surgical Hx: Repair of Jaw fx 08/2014 Family Hx: Mother alive with HTN. Sister with HTN. Social Hx: Unemployed. Smoker of 5 to 6 cigarettes daily since age 16. Binge drinking beer. No current drug use, though past of cocaine use. Past Medical History Reviewed: Historical Data, Nursing Documentation, Vital Signs Vital Signs: Last Vital Signs Temp 97.5 F L 09/07/16 23:25 Pulse 84 09/07/16 23:25 Resp 18 09/07/16 23:25 BP Pulse Ox 97 09/07/16 23:25 - Medical History PMH: Depression, HTN, Hypercholesterolemia, Hyperlipidemia Denies: Chronic Kidney Disease - Surgical History Surgical History: No Surg Hx - Family History Family History: States: Unknown Family Hx, Hypertension Denies: [place], CAD - Social History Alcohol: > 2 Drinks/Day - Home Medications Home Medications: Ambulatory Orders Medication Instructions Recorded Aspirin [Aspirin Chewable] 81 mg PO DAILY #30 chew 06/19/16 Atorvastatin [Lipitor] 40 mg PO DAILY #30 tab 06/19/16 Carvedilol [Coreg] 12.5 mg PO BID #60 tab 06/19/16 Clopidogrel [Plavix] 75 mg PO DAILY #30 tab 06/19/16 Lisinopril [Zestril] 40 mg PO DAILY #30 tab 06/19/16 amLODIPine [Norvasc] 10 mg PO DAILY #30 tab 06/19/16 Aspirin [[place] Aspirin] 81 mg PO DAILY #90 tab.chew 06/24/16 Clopidogrel [Plavix] 75 mg PO DAILY #30 tab 06/24/16 - Allergies Allergies/Adverse Reactions: Allergies Allergy/AdvReac Type Severity Reaction Status Date / Time No Known Allergies Allergy Verified 03/25/16 21:36 Review of Systems ROS Statement: Except As Marked, All Systems Reviewed And Found Negative Physical Exam - Reviewed Nursing Documentation Reviewed: Yes Vital Signs Reviewed: Yes - Physical Exam Appears: Positive for: Well, Non-toxic, No Acute Distress Head Exam: Positive for: ATRAUMATIC, NORMAL INSPECTION, NORMOCEPHALIC Skin: Positive for: Normal Color, Warm, DRY Eye Exam: Positive for: EOMI, Normal appearance, PERRL ENT: Positive for: Normal ENT Inspection Neck: Positive for: Normal, Painless ROM Cardiovascular/Chest: Positive for: Regular Rate, Rhythm Respiratory: Positive for: CNT, Normal Breath Sounds Gastrointestinal/Abdominal: Positive for: Normal Exam, Bowel Sounds, Soft Back: Positive for: Normal Inspection Extremity: Positive for: Normal ROM Neurologic/Psych: Positive for: Alert, Oriented - Laboratory Results Result Diagrams: 09/07/16 00:12 09/07/16 00:12 - ECG O2 Sat by Pulse Oximetry: 97 Medical Decision Making Medical Decision Making: BP elevated upon arrival and on re-check Administered Clonidine 0.2 mg PO ETOH 336 P:62 repeat BP: 117/75 POX: 100% on RA Monitored in ED overnight. Arousable to verbal stimuli Stable for discharge in am Disposition - Clinical Impression Clinical Impression: Alcohol intoxication - Patient ED Disposition Is Patient to be Admitted: No - Disposition Disposition: Routine/Home Disposition Time: 05:34 Condition: GOOD Instructions: Alcohol Intoxication (ED) - POA Present On Arrival: None
[2016-09-08 00:32] LABS: BASO # 0.1 K/uL (0.0-0.2); BASO % 1.4 % (0.0-2.0); EOS # 0.1 K/uL (0.0-0.7); EOS % 2.8 % (0.0-4.0); LYMPH # 1.3 K/uL (1.0-4.3); LYMPH % 32.4 % (20.0-40.0); MEAN CELL VOLUME 93.6 fl (80.0-94.0); MEAN CORPUSCULAR HEMOGLOBIN 30.3 pg (27.0-31.0); MEAN CORPUSCULAR HGB CONC 32.3 g/dL (33.0-37.0); MEAN PLATELET VOLUME 7.7 fl (7.2-11.7); MONO # 0.5 K/uL (0.0-0.8); MONO % 13.4 % (0.0-10.0); NRBC % 0.1 % (0.0-0.0); RED CELL DISTRIBUTION WIDTH 15.7 % (11.5-14.5); WHITE BLOOD COUNT 4.1 K/uL (4.8-10.8)
[2016-09-08 00:53] LABS: ALB/GLOB RATIO 1.4 (1.0-2.1); ALKALINE PHOSPHATASE 82 U/L (38-126); ALT/SGPT 86 U/L (21-72); AST/SGOT 150 U/L (17-59); BILIRUBIN,TOTAL 0.9 mg/dl (0.2-1.3); BLOOD UREA NITROGEN 18 mg/dl (9-20); CALCIUM 8.7 mg/dL (8.4-10.2); CARBON DIOXIDE 23 mmol/L (22-30); CHLORIDE 105 mmol/L (98-107); GFR AFRICAN-AMERICAN > 60; GLUCOSE,RANDOM 83 mg/dL (75-110); SODIUM 143 mmol/l (132-148); TOTAL PROTEIN 8.5 G/DL (6.3-8.2)
[2016-09-08 01:07] LABS: ALCOHOL SERUM 336 mg/dl (0-10)
[2016-09-08 01:50] VITALS: BP 113/67; PULSE 59; RESP 16
[2016-09-08 05:55] VITALS: O2SAT 97
--- NOTE | 2016-09-08 16:28 | RAD ---
HISTORY: med screening COMPARISON: Chest x-ray performed 06/24/16 TECHNIQUE: Chest, one view. FINDINGS: Examination limited by habitus and hypoinflation. LUNGS: No focal consolidation. Probable tiny right lower lobe calcified granulomas. Please note that chest x-ray has limited sensitivity for the detection of pulmonary masses. PLEURA: No significant pleural effusion identified. No definite pneumothorax . CARDIOVASCULAR: Heart size appears top normal. OSSEOUS STRUCTURES: Degenerative changes. VISUALIZED UPPER ABDOMEN: Unremarkable. OTHER FINDINGS: None. IMPRESSION: Hypoinflation.No focal consolidation, significant pleural effusion, or definite pneumothorax identified.
--- NOTE | 2016-09-09 00:11 | CARD ---
APPROVED REPORT EKG Measurement Heart [id number] <Conclusion> Normal sinus rhythm Moderate voltage criteria for LVH, may be normal variant Borderline ECG
== END 2016-09-08 06:20 | disposition home or self-care (01) ==
LOC: H.ER 23:24
DX: F10.129 Alcohol abuse with intoxication, unspecified (principal); I10 Essential (primary) hypertension; I50.9 Heart failure, unspecified

== ENCOUNTER 2016-11-28 14:41 | Observation (INO) | payer MEDICAID ==
[2016-11-28 14:42] VITALS: BMI 21.7
[2016-11-28] MEDS ORDERED: Sodium Chloride 0.9% 1,000 ML IV STA (15:11)
--- NOTE | 2016-11-28 15:19 | ED PDOC ---
HPI: Hypertension/Hypotension Time Seen by Provider: 11/28/16 15:00 Chief Complaint (Nursing): High Blood Pressure Chief Complaint (Provider): Chest pain History Per: Patient History/Exam Limitations: no limitations Onset/Duration Of Symptoms: Days (2) Additional Complaint(s): Patient is a 51 y/o male with a past medical history of hypertension and depression presenting to the emergency department for evaluation of his elevated blood pressure and chest pain ongoing for two days (last episode occurring this morning) with associated numbness, pain in his left arm, and a radiating headache since yesterday. Reports that his headache began at the back of his head but today it radiates to the right side. Also reports taking a bottle of Motrin yesterday due to the severity of the pain. Notes that he recently lost his housing. Admits to suicidal attempts in the past and suicidal ideation (fleeting without a serious plan) last week. Denies shortness of breath and other complaints. Of note, patient went to the [facility] prior to arrival where he was given 0.1 mg of Clonidine for his blood pressure which was greater than 200/80. PCP: Dr. Jaimie Padilla Past Medical History Reviewed: Historical Data, Nursing Documentation, Vital Signs Vital Signs: Last Vital Signs Temp 98.2 F 11/28/16 14:44 Pulse 88 11/28/16 15:02 Resp 18 11/28/16 15:02 BP 184/120 H 11/28/16 15:02 Pulse Ox 97 11/28/16 15:02 - Medical History PMH: Depression, HTN, Hypercholesterolemia, Hyperlipidemia Denies: Chronic Kidney Disease - Surgical History Surgical History: No Surg Hx - Family History Family History: States: Unknown Family Hx, Hypertension Denies: OK, CAD - Social History Current smoker - smoking cessation education provided: Yes (less than 10 cigarettes) Ex-Smoker (has not smoked in the last 12 months): No Alcohol: Social Drugs: Denies - Home Medications Home Medications: Ambulatory Orders Medication Instructions Recorded Lisinopril [Zestril] 40 mg PO DAILY #30 tab 06/19/16 amLODIPine [Norvasc] 10 mg PO DAILY #30 tab 06/19/16 Aspirin [[place] Aspirin] 81 mg PO DAILY #90 tab.chew 06/24/16 Clopidogrel [Plavix] 75 mg PO DAILY #30 tab 06/24/16 Atorvastatin [Lipitor] 20 mg PO DAILY 11/28/16 Carvedilol [Coreg] 3.125 mg PO Q12H 11/28/16 Multivit-Minerals/Folic Acid 1 tab PO DAILY 11/28/16 [Centrum Multigummies] - Allergies Allergies/Adverse Reactions: Allergies Allergy/AdvReac Type Severity Reaction Status Date / Time No Known Allergies Allergy Verified 11/28/16 14:44 Review of Systems ROS Statement: Except As Marked, All Systems Reviewed And Found Negative Cardiovascular: Positive for: Chest Pain Respiratory: Negative for: Shortness of Breath Musculoskeletal: Positive for: Arm Pain (Left) Neurological: Positive for: Numbness, Headache (radiating) Physical Exam - Reviewed Nursing Documentation Reviewed: Yes Vital Signs Reviewed: Yes - Physical Exam Appears: Positive for: Well, Non-toxic, No Acute Distress Head Exam: Positive for: ATRAUMATIC, NORMAL INSPECTION, NORMOCEPHALIC Skin: Positive for: Normal Color, Warm, Dry Eye Exam: Positive for: Normal appearance Neck: Positive for: Normal, Painless ROM, Supple Cardiovascular/Chest: Positive for: Regular Rate, Rhythm. Negative for: Murmur Respiratory: Positive for: Normal Breath Sounds. Negative for: Accessory Muscle Use, Respiratory Distress Extremity: Positive for: Normal ROM. Negative for: Pedal Edema Neurologic/Psych: Positive for: Alert, Oriented (x3) - Laboratory Results Result Diagrams: 11/28/16 15:30 11/28/16 15:30 - ECG ECG Rhythm: Positive for: Normal QRS, Normal ST Segment, Sinus Rhythm. Negative for: ST/T Changes Rate: 66 O2 Sat by Pulse Oximetry: 97 (RA) Pulse Ox Interpretation: Normal - Progress ED Course And Treament: ASA 324 mg; NS 1 liter wide open Heart rate noted in 60s; beta-pavan avoided for this reason. Norvasc 10 mg x 1 dose Repeat BP 180/108 Lisinopril 40 mg x 1 dose d/w family medicine Admit to Sue for tele observation. Upon Re-examination patient states he took 1200 mg motrin yesterday morning for pain and 2400 mg motrin on thursday for headache (at all time) d/w Poison control. Advise ASA/Tylenol level. Recommend supportive care. Monitor electrolyte/renal function. Medical Decision Making Medical Decision Making: Time: 15:00 Initial impression: Chest pain and hypertension Initial plan: CT Head Scan w/o contrast EKG Chest x-ray Labs Crisis evaluation Norvasc 10 mg PO Aspiring 324 mg PO Zestril 40 mg PO Normal Saline 1 L IV Urinalysis Reevaluation 16:[address] scan reviewed. Findings noted as follows: HEMORRHAGE: No intracranial hemorrhage. BRAIN: There is focal low-attenuation in the genu of the corpus callosum on the right. There are mild chronic microangiopathic changes. There is no mass, mass effect or abnormal extra-axial fluid collection. VENTRICLES: There is mild global parenchymal volume loss and proportionate enlargement of the ventricles and cortical sulci, slightly advanced for the patient's age. CALVARIUM: The skull base and calvarium are normal. PARANASAL SINUSES: Predominantly clear. MASTOID AIR CELLS: Predominantly clear. OTHER FINDINGS: None. IMPRESSION: No acute intracranial abnormality. Focal abnormal density in the genu of the corpus callosum in the right may represent old infarction or demyelination. Mild chronic microangiopathic changes and mild age-related global parenchymal volume loss. 16:46 Chest X-ray reviewed. Findings noted as follows: LUNGS: The lungs are well inflated and clear. There is a stable small calcified granuloma in the right lower lobe. PLEURA: No significant pleural effusion identified, no pneumothorax apparent. CARDIOVASCULAR: Normal. OSSEOUS STRUCTURES: No significant abnormalities. VISUALIZED UPPER ABDOMEN: Normal. OTHER FINDINGS: None. IMPRESSION: No active pulmonary disease. 18:01 Upon provider reevaluation patient is feeling better, is medically stable, and requires no further treatment in the ED at this time. Patient will be admitted. Counseling was provided and all questions were answered regarding diagnosis. There is agreement to plan of care. Clinical Impression: Acute chest pain Scribe Attestation: Documented by Cecelia Hoffman, acting as a scribe for ANGELIKA Rodriguez. Provider Scribe Attestation: All medical record entries made by the Scribe were at my direction and personally dictated by me. I have reviewed the chart and agree that the record accurately reflects my personal performance of the history, physical exam, medical decision making, and the department course for this patient. I have also personally directed, reviewed, and agree with the discharge instructions and disposition. Disposition - Clinical Impression Clinical Impression: Acute chest pain - Patient ED Disposition Is Patient to be Admitted: Yes - Disposition Disposition Time: 18:01 Condition: FAIR
[2016-11-28 15:46] LABS: BASO # 0.1 K/uL (0.0-0.2); BASO % 1.1 % (0.0-2.0); EOS # 0.2 K/uL (0.0-0.7); EOS % 4.5 % (0.0-4.0); HEMATOCRIT 36.4 % (35.0-51.0); LYMPH # 1.2 K/uL (1.0-4.3); MEAN CELL VOLUME 93.2 fl (80.0-94.0); MEAN CORPUSCULAR HEMOGLOBIN 30.8 pg (27.0-31.0); MEAN PLATELET VOLUME 7.4 fl (7.2-11.7); MONO # 0.6 K/uL (0.0-0.8); MONO % 13.3 % (0.0-10.0); NEUT # 2.8 K/uL (1.8-7.0); NEUT % 57.1 % (50.0-75.0); NRBC % 0.1 % (0.0-0.0); RED CELL DISTRIBUTION WIDTH 13.6 % (11.5-14.5); WHITE BLOOD COUNT 4.8 K/uL (4.8-10.8)
[2016-11-28 16:00] LABS: ALB/GLOB RATIO 1.4 (1.0-2.1); ALCOHOL SERUM < 10 mg/dl (0-10); ALKALINE PHOSPHATASE 67 U/L (38-126); ALT/SGPT 85 U/L (21-72); AST/SGOT 113 U/L (17-59); BILIRUBIN,TOTAL 0.7 mg/dl (0.2-1.3); BLOOD UREA NITROGEN 13 mg/dl (9-20); CALCIUM 9.7 mg/dL (8.4-10.2); CARBON DIOXIDE 27 mmol/L (22-30); CHLORIDE 102 mmol/L (98-107); GFR AFRICAN-AMERICAN > 60; GLUCOSE,RANDOM 87 mg/dL (75-110); POTASSIUM 3.8 MMOL/L (3.6-5.0); SODIUM 139 mmol/l (132-148); TOTAL PROTEIN 7.3 G/DL (6.3-8.2)
--- NOTE | 2016-11-28 16:02 | CT ---
PROCEDURE: CT HEAD WITHOUT CONTRAST. HISTORY: headache/ elevated blood pressure COMPARISON: None available. TECHNIQUE: Axial computed tomography images were obtained through the head/brain without intravenous contrast. Radiation dose: Total exam DLP = 843.27 mGy-cm. This CT exam was performed using one or more of the following dose reduction techniques: Automated exposure control, adjustment of the mA and/or kV according to patient size, and/or use of iterative reconstruction technique. FINDINGS: HEMORRHAGE: No intracranial hemorrhage. BRAIN: There is focal low-attenuation in the genu of the corpus callosum on the right. There are mild chronic microangiopathic changes. There is no mass, mass effect or abnormal extra-axial fluid collection. VENTRICLES: There is mild global parenchymal volume loss and proportionate enlargement of the ventricles and cortical sulci, slightly advanced for the patient's age. CALVARIUM: The skull base and calvarium are normal. PARANASAL SINUSES: Predominantly clear. MASTOID AIR CELLS: Predominantly clear. OTHER FINDINGS: None. IMPRESSION: No acute intracranial abnormality. Focal abnormal density in the genu of the corpus callosum in the right may represent old infarction or demyelination. Mild chronic microangiopathic changes and mild age-related global parenchymal volume loss.
--- NOTE | 2016-11-28 16:48 | RAD ---
HISTORY: chest pain COMPARISON: 09/07/2016 FINDINGS: LUNGS: The lungs are well inflated and clear. There is a stable small calcified granuloma in the right lower lobe. PLEURA: No significant pleural effusion identified, no pneumothorax apparent. CARDIOVASCULAR: Normal. OSSEOUS STRUCTURES: No significant abnormalities. VISUALIZED UPPER ABDOMEN: Normal. OTHER FINDINGS: None. IMPRESSION: No active pulmonary disease.
--- NOTE | 2016-11-28 18:18 | CARD ---
APPROVED REPORT EKG Measurement Heart [id number] HI [id number] [id number] <Conclusion> Normal sinus rhythm Possible Left atrial enlargement Left ventricular hypertrophy Abnormal ECG
--- NOTE | 2016-11-28 19:05 | CP.PCM.HP ---
History of Present Illness - History of Present Illness History of Present Illness: CC/HPI: Pt. presents to the E.D. for evaluation of elevated blood pressure and chest pain. Pt. states was at [facility] where his blood pressure was more than 200 and was given clonidine .1mg and sent to the emergency. Pt. states he does have chest pain localzied to sternal area described as dull, moderate in intensity, and radiating to the left arm not associated with exertion, and rated as 4/10. ROS: On ROS, pt. denies any drug use, fall, injury, trauma, nausea, vomiting, diarrhea, fever, chills, abdominal pain, pleuritic pain, or dyspnea. PMHx: HTN, Systolic CHF, EtOH Abuse, Tobacco abuse, Hx of suicide attempt PSHx: Jaw fx 08/2014 FMHx: HTN Social Hx: Unemployed, currently homeless TOB: Smoker of 5 to 6 cigarettes daily since age 16 ETOH Binge drinking last drank 20 beers 1 pint vodka on Thursday Drug: None has used cocaine in the past Allergies: NKDA Meds: (Pt. admidts to not using medications for past 2 months) * Lisinopril 40 MG Tablet 1 tablet Orally Once a day * Norvasc 10 MG Tablet 1 tablet Orally Once a day * Lipitor 40 MG Tablet 1 tablet Orally Once a day * Coreg 12.5 MG Tablet Orally once a day * ASA 81mg Orally once a day * Plavix 75mg Orally once a day PMD: Dr. Padilla at [facility] ED course: CT Head Scan w/o contrast EKG Chest x-ray Labs Crisis evaluation Norvasc 10 mg PO Aspiring 324 mg PO Zestril 40 mg PO Normal Saline 1 L IV Urinalysis Reevaluation ASA 324 mg NS 1 liter wide open Norvasc 10 mg x 1 dose Lisinopril 40 mg x 1 dose Advise ASA/Tylenol level. 16:[address] scan reviewed. Findings noted as follows: IMPRESSION: No acute intracranial abnormality. Focal abnormal density in the genu of the corpus callosum in the right may represent old infarction or demyelination. Mild chronic microangiopathic changes and mild age-related global parenchymal volume loss. 16:46 Chest X-ray reviewed. Findings noted as follows: IMPRESSION: No active pulmonary disease. Present on Admission - Present on Admission Any Indicators Present on Admission: No History of DVT/PE: No History of Uncontrolled Diabetes: No Urinary Catheter: No Decubitus Ulcer Present: No Review of Systems - Review of Systems Review of Systems: See HPI Past Patient History - Infectious Disease Hx of Infectious Diseases: None - Past Medical History & Family History Past Medical History?: Yes - Past Social History Alcohol: Social Drugs: Denies - CARDIAC Hx Hypercholesterolemia: Yes Hx Hypertension: Yes - PULMONARY Hx Respiratory Disorders: No - NEUROLOGICAL Other/Comment: headache - HEENT Hx HEENT Problems: No - RENAL Hx Chronic Kidney Disease: No - ENDOCRINE/METABOLIC Hx Endocrine Disorders: No - HEMATOLOGICAL/ONCOLOGICAL Hx Blood Disorders: No - INTEGUMENTARY Hx Dermatological Problems: No - MUSCULOSKELETAL/RHEUMATOLOGICAL Hx Falls: No - GASTROINTESTINAL Hx Gastrointestinal Disorders: No - GENITOURINARY/GYNECOLOGICAL Hx Genitourinary Disorders: No - PSYCHIATRIC Hx Depression: Yes - SURGICAL HISTORY Hx Surgeries: No - ANESTHESIA Hx Anesthesia: No Meds Allergies/Adverse Reactions: Allergies Allergy/AdvReac Type Severity Reaction Status Date / Time No Known Allergies Allergy Verified 11/28/16 14:44 Physical Exam - Constitutional Appears: Non-toxic, No Acute Distress - Head Exam Head Exam: ATRAUMATIC, NORMOCEPHALIC - Eye Exam Eye Exam: Normal appearance. absent: Scleral icterus - ENT Exam ENT Exam: Mucous Membranes Moist - Neck Exam Neck exam: Positive for: Full Rom - Respiratory Exam Respiratory Exam: Clear to Auscultation Bilateral, NORMAL BREATHING PATTERN - Cardiovascular Exam Cardiovascular Exam: REGULAR RHYTHM, +S1, +S2 - GI/Abdominal Exam GI & Abdominal Exam: Soft. absent: Tenderness - Extremities Exam Extremities exam: Positive for: normal capillary refill. Negative for: calf tenderness, pedal edema - Neurological Exam Neurological exam: Alert, CN II-XII Intact, Oriented x3 - Psychiatric Exam Psychiatric exam: Normal Affect, Normal Mood Additional comments: Denies suicide or homocide ideation Results - Vital Signs Recent Vital Signs: Last Vital Signs Temp 98.2 F 11/28/16 14:44 Pulse 70 11/28/16 18:59 Resp 21 11/28/16 18:59 BP 160/109 H 11/28/16 18:59 Pulse Ox 97 11/28/16 18:59 - Labs Result Diagrams: 11/28/16 15:30 11/29/16 04:10 Assessment & Plan - Assessment and Plan (Free Text) Assessment: 51 y.o. male admitted for Hypertensive urgency and chest pain Hypertensive urgency BP 184/120 on admission Admit to Tele 1- c/w Norvasc 10mg 2- c/w Lisinopril 40mg 3- c/w Carvedilol 6.25mg BID Chest pain 1- EKG shows NSR with possible left atrail and Left ventricle enlargement 2- Troponin x 1 negative will repeat x 2 3- c/w ASA 81mg 4- c/w Plavix 75mg 5- consider stress test as outpatient Systolic HF with Echo in September 2015 showing EF of 45% Repeat Echo in May 2016 wit normal EF of 65-70% 1- Will get ProBNP level Elevated Liver enzymes of unclear etiology most likely secondary to ETOH Abuse AST/ALT- 113/85 1- Repeat CMP ETOH abuse- CIWA score 0 1- Vitamin B-12 2- Folate 3- Will start vitamin B-12 and Folate pending levels Diet 1- Heart healthy DVT 1- SCD for now
[2016-11-28 20:09] LABS: RBC URINE 2 /hpf (0-3); URINE BILIRUBIN NEGATIVE (NEGATIVE); URINE BLOOD NEGATIVE (NEGATIVE); URINE COLOR YELLOW (YELLOW); URINE GLUCOSE (UA) NEG (Normal); URINE KETONE NEGATIVE (NEGATIVE); URINE LEUKOCYTE ESTERASE NEG Leu/uL (Negative); URINE PROTEIN 100 mg/dL (NEGATIVE); URINE UROBILINOGEN 0.2-1.0 mg/dL (0.2-1.0); WBC URINE < 1 /hpf (0-5)
[2016-11-29 04:56] LABS: ALB/GLOB RATIO 1.4 (1.0-2.1); ALKALINE PHOSPHATASE 52 U/L (38-126); ALT/SGPT 83 U/L (21-72); AST/SGOT 87 U/L (17-59); BILIRUBIN,TOTAL 0.5 mg/dl (0.2-1.3); BLOOD UREA NITROGEN 11 mg/dl (9-20); CALCIUM 9.1 mg/dL (8.4-10.2); CARBON DIOXIDE 27 mmol/L (22-30); CHLORIDE 105 mmol/L (98-107); GFR AFRICAN-AMERICAN > 60; GLUCOSE,RANDOM 96 mg/dL (75-110); MAGNESIUM 1.8 MG/DL (1.6-2.3); PHOSPHOROUS 4.7 mg/dl (2.5-4.5); POTASSIUM 3.5 MMOL/L (3.6-5.0); SODIUM 139 mmol/l (132-148); TOTAL PROTEIN 6.5 G/DL (6.3-8.2)
[2016-11-29 08:15] VITALS: RESP 14
[2016-11-29] MEDS ORDERED: Multivitamin With Minerals Tab PO SCH (09:00)
[2016-11-29] MEDS ORDERED: Potassium Chloride 20 mEq ER Tab PO ONE (09:30)
[2016-11-29 12:13] VITALS: BP 129/71; PULSE 72; TEMP 98.5; O2SAT 98
[2016-11-29 12:50] LABS: FOLATE 17.5 ng/mL
--- NOTE | 2016-11-29 14:00 | CP.PCM.DIS ---
Provider - Provider Date of Admission: 11/28/16 18:02 Attending physician: Paulette Quinn MD Consults: 11/28/16 19:12 Social Work Referral Routine Comment: Thank You. Physician Instructions: Please evaluate. Reason For Exam: Pt. is homeless. Time Spent in preparation of Discharge (in minutes): 30 Diagnosis - Discharge Diagnosis (1) Hypertension Status: Chronic Comment: uncontrolled on admission. Controlled during admission. C/w home meds. Prescriptions given with 1 refill. F/u with PMD at [facility] in 1 week. ER precautions given (2) Chest pain Status: Acute Comment: most likely 2/2 uncontrolled HTN. Resolved. Troponin I x 2 neg. ACS was ruled out. f/u with PMD. (3) Elevated liver enzymes Status: Chronic Comment: unclear etiology, most likely secondary to ETOH Abuse. However improving. F/u with PMD Hospital Course - Lab Results Lab Results: Most Recent Lab Values WBC 4.8 K/uL (4.8-10.8) 11/28/16 15:30 RBC 3.90 Mil/uL (4.40-5.90) L 11/28/16 15:30 Hgb 12.0 g/dL (12.0-18.0) 11/28/16 15:30 Hct 36.4 % (35.0-51.0) 11/28/16 15:30 MCV 93.2 fl (80.0-94.0) 11/28/16 15:30 MCH 30.8 pg (27.0-31.0) 11/28/16 15:30 MCHC 33.0 g/dL (33.0-37.0) 11/28/16 15:30 RDW 13.6 % (11.5-14.5) 11/28/16 15:30 Plt Count 175 K/uL (130-400) 11/28/16 15:30 MPV 7.4 fl (7.2-11.7) 11/28/16 15:30 Neut % (Auto) 57.1 % (50.0-75.0) 11/28/16 15:30 Lymph % (Auto) 24.0 % (20.0-40.0) 11/28/16 15:30 [place] % (Auto) 13.3 % (0.0-10.0) H 11/28/16 15:30 Eos % (Auto) 4.5 % (0.0-4.0) H 11/28/16 15:30 Baso % (Auto) 1.1 % (0.0-2.0) 11/28/16 15:30 Neut # 2.8 K/uL (1.8-7.0) 11/28/16 15:30 Lymph # 1.2 K/uL (1.0-4.3) 11/28/16 15:30 [place] # 0.6 K/uL (0.0-0.8) 11/28/16 15:30 Eos # 0.2 K/uL (0.0-0.7) 11/28/16 15:30 Baso # 0.1 K/uL (0.0-0.2) 11/28/16 15:30 Sodium 139 mmol/l (132-148) 11/29/16 04:10 Potassium 3.5 MMOL/L (3.6-5.0) L 11/29/16 04:10 Chloride 105 mmol/L (98-107) 11/29/16 04:10 Carbon Dioxide 27 mmol/L (22-30) 11/29/16 04:10 Anion Gap 11 (10-20) 11/29/16 04:10 BUN 11 mg/dl (9-20) 11/29/16 04:10 Creatinine 1.0 mg/dL (0.8-1.5) 11/29/16 04:10 Est GFR ( Amer) > 60 11/29/16 04:10 Est GFR (Non-Af Amer) > 60 11/29/16 04:10 Random Glucose 96 mg/dL (75-110) 11/29/16 04:10 Calcium 9.1 mg/dL (8.4-10.2) 11/29/16 04:10 Phosphorus 4.7 mg/dl (2.5-4.5) H 11/29/16 04:10 Magnesium 1.8 MG/DL (1.6-2.3) 11/29/16 04:10 Total Bilirubin 0.5 mg/dl (0.2-1.3) 11/29/16 04:10 AST 87 U/L (17-59) H D 11/29/16 04:10 ALT 83 U/L (21-72) H 11/29/16 04:10 Alkaline Phosphatase 52 U/L (38-126) 11/29/16 04:10 Troponin I < 0.0120 ng/mL (0.00-0.120) 11/28/16 23:59 NT-Pro-B Natriuret Pep 306 pg/ml (0-900) 11/28/16 19:35 Total Protein 6.5 G/DL (6.3-8.2) 11/29/16 04:10 Albumin 3.7 g/dL (3.5-5.0) 11/29/16 04:10 Globulin 2.7 gm/dL (2.2-3.9) 11/29/16 04:10 Albumin/Globulin Ratio 1.4 (1.0-2.1) 11/29/16 04:10 Vitamin B12 692 pg/mL (239-931) 11/28/16 19:40 Folate 17.5 ng/mL 11/28/16 19:40 Urine Color Yellow (YELLOW) 11/28/16 19:30 Urine Clarity Clear (Clear) 11/28/16 19:30 Urine pH 6.0 (5.0-8.0) 11/28/16 19:30 Ur Specific [place] 1.020 (1.003-1.030) 11/28/16 19:30 Urine Protein 100 mg/dL (NEGATIVE) 11/28/16 19:30 Urine Glucose (UA) Neg mg/dL (Normal) 11/28/16 19:30 Urine Ketones Negative mg/dL (NEGATIVE) 11/28/16 19:30 Urine Blood Negative (NEGATIVE) 11/28/16 19:30 Urine Nitrate Negative (NEGATIVE) 11/28/16 19:30 Urine Bilirubin Negative (NEGATIVE) 11/28/16 19:30 Urine Urobilinogen 0.2-1.0 mg/dL (0.2-1.0) 11/28/16 19:30 Ur Leukocyte Esterase Neg [place]/uL (Negative) 11/28/16 19:30 Urine RBC (Auto) 2 /hpf (0-3) 11/28/16 19:30 Urine Microscopic WBC < 1 /hpf (0-5) 11/28/16 19:30 Ur Squamous Epith Cells < 1 /hpf (0-5) 11/28/16 19:30 Salicylates < 1.0 mg/dl 11/28/16 19:05 Urine Opiates Screen Negative (NEGATIVE) 11/28/16 16:22 Urine Methadone Screen Negative (NEGATIVE) 11/28/16 16:22 Acetaminophen < 10.0 ug/ml (10.0-30.0) L 11/28/16 19:05 Ur Barbiturates Screen Negative (NEGATIVE) 11/28/16 16:22 Ur Phencyclidine Scrn Negative (NEGATIVE) 11/28/16 16:22 Ur Amphetamines Screen Negative (NEGATIVE) 11/28/16 16:22 U Benzodiazepines Scrn Negative (NEGATIVE) 11/28/16 16:22 U Oth Cocaine Metabols Negative (NEGATIVE) 11/28/16 16:22 U Cannabinoids Screen Negative (NEGATIVE) 11/28/16 16:22 Alcohol, Quantitative < 10 mg/dl (0-10) 11/28/16 15:30 - Hospital Course Hospital Course: 51 y/o M with PMHx of HTN, Systolic CHF, EtOH Abuse, Tobacco abuse, Hx of suicide attempt who was admitted for Hypertensive urgency and chest pain to rule out ACS. During admission EKG did not show acute ST-T wave changes and CXR showed no active pulmonary disease. Troponin I x 2 negative. Blood pressure was managed reassuming his home medications. Patient reported on admission that he was not taken any of his home medications( unclear reason) for the last 2 months. But he states that his health insurance covers his meds. Patient was seen and examined in telemetry this morning. Patient denies CP, SOB, dizziness, headaches, N/V, abdominal pain or other complains. He states that he feels well , and denies any complains at this evaluation. Patient will call for an appointment with Dr. Randy LATHAM at [facility] on Thursday. Home medications Amlodipine 10 mg PO daily Aspirin 81 mg PO daily Atorvastatin 20 mg PO daily Carvedilol 3.125 mg BID PO Clopidogrel 75 mg PO daily Lisinorpil 40 mg PO daily Multivitamins 1 tab Po daily No changes done in his current outpatient medications, patient was not taken meds x 2 months - Date & Time of H&P Date of H&P: 11/28/16 Time of H&P: 19:05 Discharge Exam - Head Exam Head Exam: ATRAUMATIC, NORMOCEPHALIC - ENT Exam ENT Exam: Mucous Membranes Moist - Respiratory Exam Respiratory Exam: Clear to PA & Lateral, NORMAL BREATHING PATTERN. absent: Rales, Rhonchi, Wheezes, Respiratory Distress - Cardiovascular Exam Cardiovascular Exam: REGULAR RHYTHM, +S1, +S2 - GI/Abdominal Exam GI & Abdominal Exam: Normal Bowel Sounds, Soft. absent: Distended, Guarding, Tenderness - Extremities Exam Extremities exam: normal inspection Additional comments: no edema in lower extremities, no calves tenderness - Neurological Exam Neurological exam: Alert, Oriented x3 - Psychiatric Exam Psychiatric exam: Normal Affect, Normal Mood - Skin Skin Exam: Dry, Intact, Normal Color Discharge Plan - Follow Up Plan Condition: GOOD Disposition: HOME/ ROUTINE Patient education suggested?: Yes Additional Instructions: f/u with PMRandy Cristobal at [facility] in 1 week. ER precautions given
== END 2016-11-29 13:20 | disposition home or self-care (01) ==
LOC: H.ER 14:41 → H.ERHOLD 18:02 → H.TEL 21:12
PROVIDERS: ADMIT Family Medicine Geriatric Medicine; ATTEND Family Medicine Geriatric Medicine
DX: I16.0 Hypertensive urgency (principal); I11.0 Hypertensive heart disease with heart failure; I50.22 Chronic systolic (congestive) heart failure; F10.10 Alcohol abuse, uncomplicated; E78.5 Hyperlipidemia, unspecified; E78.00 Pure hypercholesterolemia, unspecified; F17.210 Nicotine dependence, cigarettes, uncomplicated; Z59.0 Homelessness; Z79.02 Long term (current) use of antithrombotics/antiplatelets; Z79.82 Long term (current) use of aspirin; Z91.5 Personal history of self-harm
CPT/HCPCS: 36415; 70450; 71010; 80053; 80320; 80324; 80329; 80345; 80346; 80349; 80353; 80358; 80361; 81003; 82607; 82746; 83735; 83880; 83992; 84100; 84484; 85025; 93005; 99285; G0378; J7040

== ENCOUNTER 2017-04-04 17:57 | Observation (INO) | payer MEDICAID ==
[2017-04-04 17:57] VITALS: BMI 21.7
--- NOTE | 2017-04-04 19:07 | ED PDOC ---
HPI: Psych/Substance Abuse Time Seen by Provider: 04/04/17 18:12 Chief Complaint (Nursing): Chest Pain Chief Complaint (Provider): Dizziness and Chest Pain ED Caveat: Intoxicated History Per: Patient History/Exam Limitations: intoxication Onset/Duration Of Symptoms: Hrs (x2) Current Symptoms Are (Timing): Still Present Modifying Factor(s): Alcohol Additional History Per: Family (cousin) Additional Complaint(s): Hugo Scott, 51 year old male presents to the emergency department complaining of dizziness and mid-sternal chest pain for 2 hours. Per cousin, patient suddenly complained of feeling very dizzy and almost passed out, cousin caught him and brought him to ER. The patient started to drink after getting into an argument with his last night and has been drinking constantly since 5am this morning. He also complains of intractable hiccups since last night, and has not taken his medications since the past two days. Prior to arrival, he had 1 episode of vomiting. He also expresses depression and reports some shortness of breath. Denies suicidal thoughts and no surgical history. PMD: Anthony Severino Past Medical History Reviewed: Historical Data, Nursing Documentation, Vital Signs Vital Signs: Last Vital Signs Temp 98.0 F 04/04/17 18:01 Pulse 94 H 04/04/17 18:59 Resp 20 04/04/17 18:01 BP 175/105 H 04/04/17 18:01 Pulse Ox 97 04/04/17 18:01 - Medical History PMH: CAD, Depression, HTN, Hypercholesterolemia, Hyperlipidemia, TIA Denies: HIV, Chronic Kidney Disease - Surgical History Surgical History: No Surg Hx - Family History Family History: States: Unknown Family Hx, Hypertension Denies: [place], CAD - Living Arrangements Living Arrangements: Other () - Social History Current smoker - smoking cessation education provided: Yes Alcohol: > 2 Drinks/Day (for the past 2 days) Drugs: Denies - Home Medications Home Medications: Ambulatory Orders Medication Instructions Recorded Lisinopril [Zestril] 40 mg PO DAILY #30 tab 06/19/16 amLODIPine [Norvasc] 10 mg PO DAILY #30 tab 06/19/16 Aspirin [[place] Aspirin] 81 mg PO DAILY #90 tab.chew 06/24/16 Clopidogrel [Plavix] 75 mg PO DAILY #30 tab 06/24/16 Atorvastatin [Lipitor] 20 mg PO DAILY 11/28/16 Carvedilol [Coreg] 3.125 mg PO Q12H 11/28/16 Multivit-Minerals/Folic Acid 1 tab PO DAILY 11/28/16 [Centrum Multigummies] - Allergies Allergies/Adverse Reactions: Allergies Allergy/AdvReac Type Severity Reaction Status Date / Time No Known Allergies Allergy Verified 04/04/17 18:00 Review of Systems ROS Statement: Except As Marked, All Systems Reviewed And Found Negative (As per HPI, otherwise negative) Cardiovascular: Positive for: Chest Pain Respiratory: Positive for: Shortness of Breath Gastrointestinal: Positive for: Vomiting (an episode of vomitting prior of arrival ) Neurological: Positive for: Dizziness. Negative for: Weakness, Confusion Psych: Positive for: Depression. Negative for: Suicidal ideation Physical Exam - Reviewed Nursing Documentation Reviewed: Yes Vital Signs Reviewed: Yes - Physical Exam Appears: Positive for: In Acute Distress (intoxicated) Head Exam: Positive for: ATRAUMATIC, NORMOCEPHALIC Skin: Positive for: Warm, Dry Eye Exam: Positive for: EOMI, PERRL, Conjunctival injection ENT: Positive for: Other (moist mucus membranes) Neck: Positive for: Painless ROM, Supple Cardiovascular/Chest: Positive for: Tachycardia (regular rhythm). Negative for : Murmur Respiratory: Positive for: Normal Breath Sounds. Negative for: Wheezing, Respiratory Distress Gastrointestinal/Abdominal: Positive for: Soft. Negative for: Tenderness Back: Positive for: Normal Inspection. Negative for: Decreased ROM Extremity: Positive for: Normal ROM. Negative for: Deformity Lymphatic: Negative for: Adenopathy Neurologic/Psych: Positive for: Alert. Negative for: Motor/Sensory Deficits - Laboratory Results Result Diagrams: 04/04/17 18:56 04/04/17 18:56 - ECG O2 Sat by Pulse Oximetry: 97 (RA) Pulse Ox Interpretation: Normal Medical Decision Making Medical Decision Making: Time: 18:14 Impression: Alcohol Intoxication, Chest Pain, Hypertension, and Depression Pt has significant cardiac history and will need hospitalization for chest pain with cardiac risk factors for serial troponins to r/o ACS, pending ER workup Initial Plan: --Alcohol Serum --B-Type Natriuretic Peptide --CMP --Drug Screen --Magnesium --Phosphorous --Troponin I --Troponin I Q8H --Urine Dipstick --CBC --Partial Thromboplastin Time [COAG] --Prothrombin Time [COAG] --CHEST XRAY --Zofran Inj 8mg IV --Reevaluation Elevated BAL DW Dr [facility] resident for hospitalization. on reevaluation at 11pm pt still with slurred speech and somewhat poor insight ( still clinically intoxicated), reports his chest pain improved. Scribe Attestation: Documented by Amanda Robles, acting as a scribe for Gladys Mcfarlane MD Provider Scribe Attestation: All medical record entries made by the Scribe were at my direction and personally dictated by me. I have reviewed the chart and agree that the record accurately reflects my personal performance of the history, physical exam, medical decision making, and the department course for this patient. I have also personally directed, reviewed, and agree with the discharge instructions and disposition. Disposition - Clinical Impression Clinical Impression: Chest pain Counseled Patient/Family Regarding: Studies Performed, Diagnosis - Disposition Disposition Time: 22:00 Condition: FAIR - Pt Status Changed To: Hospital Disposition Of: Observation - POA Present On Arrival: Falls Or Trauma
[2017-04-04 19:10] LABS: BASO % 0.6 % (0.0-2.0); EOS % 0.6 % (0.0-4.0); HEMOGLOBIN 12.9 g/dL (12.0-18.0); LYMPH # 1.7 K/uL (1.0-4.3); LYMPH % 20.6 % (20.0-40.0); MEAN CELL VOLUME 88.3 fl (80.0-94.0); MEAN CORPUSCULAR HEMOGLOBIN 29.2 pg (27.0-31.0); MONO # 0.8 K/uL (0.0-0.8); MONO % 9.3 % (0.0-10.0); NEUT # 5.7 K/uL (1.8-7.0); NEUT % 68.9 % (50.0-75.0); NRBC % 0.1 % (0.0-0.0); RBC 4.41 Mil/uL (4.40-5.90); RED CELL DISTRIBUTION WIDTH 13.2 % (11.5-14.5); WHITE BLOOD COUNT 8.3 K/uL (4.8-10.8)
[2017-04-04 19:41] LABS: INR 0.9 (0.9-1.2); PARTIAL THROMBOPLASTIN TIME 27.2 Seconds (25.6-37.1); PROTHROMBIN TIME 10.1 Seconds (9.8-13.1)
[2017-04-04 19:43] LABS: B-TYPE NATRIURETIC PEPTIDE 58.7 pg/ml (0-900)
[2017-04-04 19:45] LABS: BLOOD UREA NITROGEN 17 mg/dl (9-20); GFR AFRICAN-AMERICAN > 60; GFR NON-AFRICAN AMERICAN > 60; MAGNESIUM 2.1 MG/DL (1.6-2.3)
[2017-04-04 19:46] LABS: ALB/GLOB RATIO 1.4 (1.0-2.1); ALBUMIN 4.6 g/dL (3.5-5.0); ALT/SGPT 56 U/L (21-72); AST/SGOT 111 U/L (17-59)
--- NOTE | 2017-04-04 21:55 | CP.PCM.HP ---
History of Present Illness - History of Present Illness History of Present Illness: 51 yr old M presents to ED with complaint of chest pain and dizziness which began today. PMHx includes systolic CHF, uncontrolled HTN, Etoh abuse, hx suicide attempt. Patient reports he as been binge drinking since yesterday, thus far drank 1 pint of rum and 15 (16oz) beers. He has not taken any of his medication for the past 2 days. Denies SOB, fall, head trauma, nausea, sweating , weakness or extremity pain. Patient states he had not consumed alcohol for 3 months prior to yesterday. Patient also reports he was supposed to follow up with cardiology but missed his appointment. Patient is homeless and only family is mother in [place] and a sister here whom he has no communication with. Denies suicidal or homicidal ideation. PMD: Dr. Padilla PMHx: systolic CHF, uncontrolled HTN, Etoh abuse, hx suicide attempt SurgHx: right mandible fracture s/p repair 08/2014 FMHx: mother has HTN and CAD SocHx: tobacco use 5-6 cig daily x 35 yrs, Etoh binge consumption (last episode started yesterday-prior to this no Etoh for 3 months), denies drugs, is homeless , has mother in [place], no contact with his sister who lives in [place] Medications: ASA 81mg PO QD, Plavix 75mg PO QD, Carvedilol 3.125mg PO BID QD, Amlodipine 10mg PO QD, Lisinopril 40 mg PO QD, Lipitor 20mg PO QD, multivitamin 1 tab PO QD Allergies: NKDA ED course: BP 175/105 mmHg, Pulse 110, Resp rate 20, Temp 98 F, O2 sat 97% on room air -EKG: sinus tachycardia, no ST-T abnormalities -troponin negative x 1, CMP wnl, CBC wnl, magnesium wnl, phosphorus wnl, INR PT and PTT wnl, pro-BNP wnl -CXR: no active disease, unchanged compared to prior -urine drug screen pending -serum alcohol level: 251 mg/dL -ED tx: no meds Present on Admission - Present on Admission Any Indicators Present on Admission: No History of DVT/PE: No History of Uncontrolled Diabetes: No Urinary Catheter: No Decubitus Ulcer Present: No History Surgical Site Infection Following: None Review of Systems - Review of Systems All systems: reviewed and no additional remarkable complaints except (for what is mentioned in the HPI) - Constitutional Constitutional: absent: Chills, Fever, Headache - EENT Eyes: absent: Blurred Vision, Change in Vision Ears: Dizziness (mild) Nose/Mouth/Throat: absent: Neck Pain - Cardiovascular Cardiovascular: Chest Pain. absent: Dyspnea, Pedal Edema - Respiratory Respiratory: absent: Hemoptysis - Gastrointestinal Gastrointestinal: absent: Abdominal Pain, Nausea, Vomiting - Genitourinary Genitourinary: absent: Difficulty Urinating, Dysuria - Musculoskeletal Musculoskeletal: absent: Arthralgias - Integumentary Integumentary: absent: Bleeding Lesions - Neurological Neurological: absent: Loss of Vision, Weakness - Psychiatric Psychiatric: absent: Homicidal Ideation, Suicidal Ideation - Hematologic/Lymphatic Hematologic: absent: Easy Bleeding, Easy Bruising Past Patient History - Infectious Disease Hx of Infectious Diseases: None - Past Medical History & Family History Past Medical History?: Yes - Past Social History Alcohol: > 2 Drinks/Day (for the past 2 days) Drugs: Denies - CARDIAC Hx Hypercholesterolemia: Yes Hx Hypertension: Yes - PULMONARY Hx Respiratory Disorders: No - NEUROLOGICAL Hx Transient Ischemic Attacks (TIA): Yes - HEENT Hx HEENT Problems: No - RENAL Hx Chronic Kidney Disease: No - ENDOCRINE/METABOLIC Hx Endocrine Disorders: No - HEMATOLOGICAL/ONCOLOGICAL Hx Human Immunodeficiency Virus (HIV): No - INTEGUMENTARY Hx Dermatological Problems: No - MUSCULOSKELETAL/RHEUMATOLOGICAL Hx Falls: No - GASTROINTESTINAL Hx Gastrointestinal Disorders: No - GENITOURINARY/GYNECOLOGICAL Hx Genitourinary Disorders: No - PSYCHIATRIC Hx Depression: Yes - SURGICAL HISTORY Hx Surgeries: No - ANESTHESIA Hx Anesthesia: No Meds Allergies/Adverse Reactions: Allergies Allergy/AdvReac Type Severity Reaction Status Date / Time No Known Allergies Allergy Verified 04/04/17 18:00 Physical Exam - Constitutional Appears: Unkempt, Other (intoxicated, strong Etoh odor) - Head Exam Head Exam: ATRAUMATIC, NORMOCEPHALIC - Eye Exam Eye Exam: EOMI, PERRL - ENT Exam ENT Exam: Mucous Membranes Moist - Neck Exam Neck exam: Positive for: Full Rom. Negative for: Lymphadenopathy - Respiratory Exam Respiratory Exam: Clear to Auscultation Bilateral, NORMAL BREATHING PATTERN - Cardiovascular Exam Cardiovascular Exam: REGULAR RHYTHM, +S1, +S2 - GI/Abdominal Exam GI & Abdominal Exam: Normal Bowel Sounds, Soft - Extremities Exam Extremities exam: Positive for: full ROM. Negative for: pedal edema - Neurological Exam Neurological exam: Alert, CN II-XII Intact, Oriented x3 - Psychiatric Exam Psychiatric exam: Normal Affect, Normal Mood - Skin Skin Exam: Dry, Intact, Warm Results - Vital Signs Recent Vital Signs: Last Vital Signs Temp 98.0 F 04/04/17 18:01 Pulse 78 04/04/17 20:58 Resp 17 04/04/17 20:58 BP 141/100 H 04/04/17 20:58 Pulse Ox 97 04/04/17 21:41 - Labs Result Diagrams: 04/04/17 18:56 04/04/17 18:56 Labs: Laboratory Results - last 24 hr 04/04/17 04/04/17 04/04/17 18:49 18:56 18:56 WBC 8.3 D RBC 4.41 Hgb 12.9 Hct 38.9 MCV 88.3 D MCH 29.2 MCHC 33.0 RDW 13.2 Plt Count 221 MPV 7.0 L Neut % (Auto) 68.9 Lymph % (Auto) 20.6 Power % (Auto) 9.3 Eos % (Auto) 0.6 Baso % (Auto) 0.6 Neut # 5.7 Lymph # 1.7 Power # 0.8 Eos # 0.0 Baso # 0.0 PT INR APTT Sodium 145 Potassium 3.7 Chloride 104 Carbon Dioxide 24 Anion Gap 21 H BUN 17 Creatinine 1.1 Est GFR ( Amer) > 60 Est GFR (Non-Af Amer) > 60 POC Glucose (mg/dL) 91 Random Glucose 88 Calcium 9.0 Phosphorus 3.2 Magnesium 2.1 Total Bilirubin 1.1 AST 111 H D ALT 56 Alkaline Phosphatase 72 Troponin I 0.0290 NT-Pro-B Natriuret Pep 58.7 Total Protein 7.8 Albumin 4.6 Globulin 3.2 Albumin/Globulin Ratio 1.4 Alcohol, Quantitative 251 H 04/04/17 18:56 WBC RBC Hgb Hct MCV MCH MCHC RDW Plt Count MPV Neut % (Auto) Lymph % (Auto) Power % (Auto) Eos % (Auto) Baso % (Auto) Neut # Lymph # Power # Eos # Baso # PT 10.1 INR 0.9 APTT 27.2 Sodium Potassium Chloride Carbon Dioxide Anion Gap BUN Creatinine Est GFR ( Amer) Est GFR (Non-Af Amer) POC Glucose (mg/dL) Random Glucose Calcium Phosphorus Magnesium Total Bilirubin AST ALT Alkaline Phosphatase Troponin I NT-Pro-B Natriuret Pep Total Protein Albumin Globulin Albumin/Globulin Ratio Alcohol, Quantitative Assessment & Plan - Assessment and Plan (Free Text) Assessment: 51 yr old M admitted for chest pain with PMHx of systolic CHF, uncontrolled HTN , Etoh abuse, hx suicide attempt. 1. Chest pain -acute, likely secondary to gastritis secondary to Etoh abuse vs less likely ACS -EKG: sinus tachycardia, no ST-T abnormalities, troponin negative x 1 -CMP wnl, CBC wnl, magnesium wnl, phosphorus wnl, INR PT and PTT wnl, pro-BNP wnl -CXR: no active disease, unchanged compared to prior -admit to telemetry: cardiac monitoring, -f/u serial troponins 2. Systolic CHF -chronic, controlled -continue home medications: Carvedilol 3.125mg PO BID QD, Lipitor 20mg PO QD -refer to cardiology as outpatient 3. HTN -chronic, uncontrolled secondary to medication non-compliance and Etoh abuse -continue with home medications: Amlodipine 10mg PO QD, Lisinopril 40 mg PO QD -monitor BP 4. Chronic ischemic disease and previous infarcts -seen on Brain MRI 06/17/16 -was worked up by neurology -ASA 81mg PO QD, Plavix 75mg PO QD 5. Alcohol abuse -chronic, recurrent binge drinking -serum alcohol level: 251 mg/dL -monitor vitals, PO fluids 6. DVT prophylaxis -Lovenox 40mg SC QD - Date & Time Date: 04/04/17 Time: 21:54
[2017-04-05 00:13] VITALS: RESP 18
[2017-04-05 04:01] LABS: BARBITURATES, UR NEGATIVE (NEGATIVE); BENZODIAZEPINES, UR NEGATIVE (NEGATIVE); OPIATES, UR NEGATIVE (NEGATIVE); PHENCYCLIDINE, UR NEGATIVE (NEGATIVE)
[2017-04-05 08:19] VITALS: BP 193/113; PULSE 67; TEMP 97.8; O2SAT 100
--- NOTE | 2017-04-05 08:40 | RAD ---
HISTORY: CHEST PAIN SOB COMPARISON: Chest radiograph dated 11/28/2016. FINDINGS: LUNGS: No active pulmonary disease. Tiny right mid lung calcified granuloma redemonstrated. PLEURA: No significant pleural effusion identified, no pneumothorax apparent. CARDIOVASCULAR: Normal. OSSEOUS STRUCTURES: Unchanged. VISUALIZED UPPER ABDOMEN: Normal. OTHER FINDINGS: None. IMPRESSION: No active disease.
[2017-04-05] MEDS ORDERED: Multivitamin With Minerals Tab PO SCH (09:00)
[2017-04-05] MEDS ORDERED: Pantoprazole 40 mg EC Tab PO SCH (09:00)
[2017-04-05] MEDS ORDERED: Enoxaparin 40 mg Syringe SC SCH (09:00)
== END 2017-04-05 07:55 | disposition left against medical advice (07) ==
LOC: H.ER 17:57 → H.ERHOLD 21:40 → H.TEL 23:25
PROVIDERS: ADMIT Family Medicine; ATTEND Family Medicine
DX: K29.70 Gastritis, unspecified, without bleeding (principal); R07.89 Other chest pain; F10.129 Alcohol abuse with intoxication, unspecified; F17.200 Nicotine dependence, unspecified, uncomplicated; F32.9 Major depressive disorder, single episode, unspecified; I11.0 Hypertensive heart disease with heart failure; E78.5 Hyperlipidemia, unspecified; I25.10 Atherosclerotic heart disease of native coronary artery without angina pectoris; I50.22 Chronic systolic (congestive) heart failure; Y90.8 Blood alcohol level of 240 mg/100 ml or more; Z59.0 Homelessness; Z79.02 Long term (current) use of antithrombotics/antiplatelets; Z79.82 Long term (current) use of aspirin; Z79.899 Other long term (current) drug therapy; Z82.49 Family history of ischemic heart disease and other diseases of the circulatory system; Z86.73 Personal history of transient ischemic attack (TIA), and cerebral infarction without residual deficits; Z91.14 Patient's other noncompliance with medication regimen; R00.0 Tachycardia, unspecified; E78.00 Pure hypercholesterolemia, unspecified
CPT/HCPCS: 36415; 71045; 80053; 80320; 80324; 80345; 80346; 80349; 80353; 80358; 80361; 82948; 83735; 83880; 83992; 84100; 84484; 85025; 85610; 85730; 99284; G0378; J2405

== ENCOUNTER 2017-04-25 17:22 | Inpatient (IN) | payer MEDICAID ==
[2017-04-25 17:22] VITALS: BMI 21.7
--- NOTE | 2017-04-25 17:50 | ED PDOC ---
HPI: Chest Pain Time Seen by Provider: 04/25/17 17:46 Chief Complaint (Nursing): Chest Pain Chief Complaint (Provider): ETOH History Per: Patient Additional Complaint(s): 51 yr old M presents to ED with complaint of chest pain and left arm pain which began today. Pt also asking for something to eat, admits to drinking heavily today. (+) AOB. PMHx includes systolic CHF, uncontrolled HTN, Etoh abuse, hx suicide attempt. Patient admits he as been binge drinking since yesterday. He has not taken any of his medication for the past 2 days. Denies SOB, fall, head trauma, nausea, sweating, weakness or extremity pain. Patient is homeless and only family is mother in [place] and a sister here whom he has no communication with. Denies suicidal or homicidal ideation. PMD: Dr. Padilla Past Medical History Reviewed: Historical Data, Nursing Documentation, Vital Signs Vital Signs: Last Vital Signs Temp 98.6 F 04/25/17 17:27 Pulse 112 H 04/25/17 17:27 Resp 20 04/25/17 17:27 BP 196/149 H 04/25/17 17:27 Pulse Ox 96 04/25/17 17:50 - Medical History PMH: CAD, Depression, HTN, Hypercholesterolemia, Hyperlipidemia, TIA Denies: HIV, Chronic Kidney Disease - Family History Family History: States: Unknown Family Hx, Hypertension Denies: [place], CAD - Living Arrangements Living Arrangements: Other - Social History Alcohol: > 2 Drinks/Day Drugs: Cannabis - Home Medications Home Medications: Ambulatory Orders Medication Instructions Recorded Lisinopril [Zestril] 40 mg PO DAILY #30 tab 06/19/16 amLODIPine [Norvasc] 10 mg PO DAILY #30 tab 06/19/16 Aspirin [[place] Aspirin] 81 mg PO DAILY #90 tab.chew 06/24/16 Clopidogrel [Plavix] 75 mg PO DAILY #30 tab 06/24/16 Atorvastatin [Lipitor] 20 mg PO DAILY 11/28/16 Carvedilol [Coreg] 3.125 mg PO Q12H 11/28/16 Multivit-Minerals/Folic Acid 1 tab PO DAILY 11/28/16 [Centrum Multigummies] - Allergies Allergies/Adverse Reactions: Allergies Allergy/AdvReac Type Severity Reaction Status Date / Time No Known Allergies Allergy Verified 04/04/17 18:00 SAAD Risk Score for UA/NSTEMI - SAAD Risk Score Age > 64: NO 3 or more CAD Risk Factors: NO Known CAD (Stenosis greater than 50%): NO Aspirin use in past 7 days: NO Severe Angina: NO EKG ST changes greater than 0.5mm: NO Positive Cardiac Marker: NO SAAD Score: 0 Risk %: 5% Curb-65 Severity Score - CURB-65 Severity Score Confusion: No Bun >19mg/dl (>7mmol/L): No Respiratory Rate greater than/equal to 30: No Systolic BP <90 or Diastolic BP less than/equal 60mmHg: No Age >64: No Curb-65 Score: 0 Percentage 30-day mortality: 0.6% Wells Criteria for PE - Wells Criteria for Pulmonary Embolism Clinical Signs and Symptoms of DVT: No P.E is #1 Diagnosis, or Equally Likely: No Heart Rate >100: No Immobilization at least 3 days;Surgery previous 4 weeks: No Previous, objectively diagnosed PE or DVT: No Hemoptysis: No Malignancy w/treatment within 6 months, or palliative: No Total Score: 0 Review of Systems ROS Statement: Except As Marked, All Systems Reviewed And Found Negative Cardiovascular: Positive for: Chest Pain Musculoskeletal: Positive for: Shoulder Pain Physical Exam - Reviewed Nursing Documentation Reviewed: Yes Vital Signs Reviewed: Yes - Physical Exam Appears: Positive for: Well, Non-toxic, No Acute Distress Head Exam: Positive for: ATRAUMATIC, NORMAL INSPECTION, NORMOCEPHALIC Skin: Positive for: Normal Color, Warm, DRY Eye Exam: Positive for: EOMI, Normal appearance, PERRL ENT: Positive for: Normal ENT Inspection Neck: Positive for: Normal, Painless ROM Cardiovascular/Chest: Positive for: Regular Rate, Rhythm Respiratory: Positive for: CNT, Normal Breath Sounds Gastrointestinal/Abdominal: Positive for: Normal Exam, Bowel Sounds, Soft Back: Positive for: Normal Inspection Extremity: Positive for: Normal ROM Neurologic/Psych: Positive for: Alert, Oriented - ECG O2 Sat by Pulse Oximetry: 96 Medical Decision Making Medical Decision Making: EKG interpreted and cleared by ED MD Pt placed on desk monitor, Diagnostics ordered Case endorsed to TIFFANY Torres at 1999 pending diagnostic review and re-eval Disposition - Clinical Impression Clinical Impression: ETOH abuse, Chest pain - Patient ED Disposition Is Patient to be Admitted: Transfer of Care - Disposition Disposition: Transfer of Care Disposition Time: 20:00 Condition: STABLE Forms: [facility] ([place])
[2017-04-25] MEDS ORDERED: Sodium Chloride 0.9% 1,000 ML IV STA (19:28)
--- NOTE | 2017-04-25 19:32 | ED PDOC ---
- Laboratory Results Result Diagrams: 04/25/17 23:26 04/25/17 19:55 - ECG O2 Sat by Pulse Oximetry: 96 Medical Decision Making Medical Decision Making: Ingested unknown quantity of unknown pills in ED. Admits to SI. NG tube placed with evacuation of gastric contents. No pill fragments found. Poison control to be contacted and pt placed on 1:1 suicide precaution Disposition - Clinical Impression Clinical Impression: ETOH abuse, Chest pain, Drug ingestion, Suicidal ideation - POA Present On Arrival: None - Disposition Disposition: Hospitalized as Observation Patient Disposition Time: 23:42 Condition: FAIR Forms: [facility] ([place]ian)
[2017-04-25 20:02] LABS: BASO # 0.1 K/uL (0.0-0.2); BASO % 1.2 % (0.0-2.0); EOS % 0.3 % (0.0-4.0); HEMOGLOBIN 13.2 g/dL (12.0-18.0); LYMPH # 1.4 K/uL (1.0-4.3); LYMPH % 27.8 % (20.0-40.0); MEAN CELL VOLUME 90.3 fl (80.0-94.0); MEAN CORPUSCULAR HEMOGLOBIN 29.4 pg (27.0-31.0); MEAN CORPUSCULAR HGB CONC 32.5 g/dL (33.0-37.0); MEAN PLATELET VOLUME 7.6 fl (7.2-11.7); MONO # 0.4 K/uL (0.0-0.8); MONO % 7.8 % (0.0-10.0); NEUT # 3.1 K/uL (1.8-7.0); NEUT % 62.9 % (50.0-75.0); NRBC % 0.1 % (0.0-0.0); RBC 4.49 Mil/uL (4.40-5.90); RED CELL DISTRIBUTION WIDTH 13.7 % (11.5-14.5); WHITE BLOOD COUNT 4.9 K/uL (4.8-10.8)
[2017-04-25 20:36] LABS: PROTHROMBIN TIME 11.4 Seconds (9.8-13.1)
[2017-04-25 20:43] LABS: ALB/GLOB RATIO 1.4 (1.0-2.1); ALBUMIN 4.7 g/dL (3.5-5.0); AST/SGOT 163 U/L (17-59); BLOOD UREA NITROGEN 16 mg/dl (9-20); CALCIUM 9.3 mg/dL (8.4-10.2); GFR AFRICAN-AMERICAN > 60; GFR NON-AFRICAN AMERICAN > 60
[2017-04-25 20:44] LABS: ALT/SGPT 88 U/L (21-72)
[2017-04-25 20:46] LABS: ACETAMINOPHEN < 10.0 ug/ml (10.0-30.0); SALICYLATE < 1.0 mg/dl
[2017-04-25 23:29] LABS: BASO # 0.1 K/uL (0.0-0.2); BASO % 1.5 % (0.0-2.0); EOS # 0.1 K/uL (0.0-0.7); EOS % 2.3 % (0.0-4.0); HEMOGLOBIN 11.8 g/dL (12.0-18.0); LYMPH # 1.7 K/uL (1.0-4.3); LYMPH % 38.9 % (20.0-40.0); MEAN CELL VOLUME 89.4 fl (80.0-94.0); MEAN CORPUSCULAR HEMOGLOBIN 29.3 pg (27.0-31.0); MEAN CORPUSCULAR HGB CONC 32.8 g/dL (33.0-37.0); MEAN PLATELET VOLUME 6.9 fl (7.2-11.7); MONO # 0.5 K/uL (0.0-0.8); MONO % 10.9 % (0.0-10.0); NEUT # 2.1 K/uL (1.8-7.0); NEUT % 46.4 % (50.0-75.0); NRBC % 0.2 % (0.0-0.0); RBC 4.04 Mil/uL (4.40-5.90); RED CELL DISTRIBUTION WIDTH 13.9 % (11.5-14.5); WHITE BLOOD COUNT 4.5 K/uL (4.8-10.8)
[2017-04-25 23:32] LABS: VENOUS BLOOD GAS BASE EXCESS 3.7 mmol/L (0.0-2.0); VENOUS BLOOD GAS PCO2 43 mmHg (40-60); VENOUS BLOOD GAS PO2 69 mm/Hg (30-55); VENOUS BLOOD PH 7.43 (7.32-7.43)
[2017-04-25 23:42] LABS: ALB/GLOB RATIO 1.4 (1.0-2.1); ALBUMIN 3.9 g/dL (3.5-5.0); ALT/SGPT 76 U/L (21-72); AST/SGOT 130 U/L (17-59); BLOOD UREA NITROGEN 14 mg/dl (9-20); CALCIUM 8.6 mg/dL (8.4-10.2); GFR AFRICAN-AMERICAN > 60; GFR NON-AFRICAN AMERICAN > 60
--- NOTE | 2017-04-26 00:46 | CP.PCM.HP ---
History of Present Illness - History of Present Illness History of Present Illness: CC: drug ingestion HPI: The patient is a 51 y/o man w/ pmh of systolic CHF, uncontrolled HTN, Etoh abuse, hx suicide attempt is admitted for intentional drug ingestion. The patient earlier presented to the ED for chest pain of which ACS was ruled out based on labs and triage EKG. However, patient was witnessed by ED nurse ingesting pills from a bottle the patient had on him. The patient is a poor historian due to still being under the influence of alcohol. Patient reports drinking heavily this evening. Patient also expressed suicidal ideation by repeatedly saying he's, "tired of life". Patient reports previous attempts to harm himself with attempting to overdose w/ prescription medication. Patient reports mild occipital tension headache but denies current chest pain, SOB, dizziness, abdominal pain, nausea, vomiting, dysuria, hematuria, hematochezia, melena, or fever. ED course: vitals: 98.6 F, 112 beats/min, 196/149 mm Hg, resp 20, O2 96% RA CBC: 4.9>11.8/36.1<217 CMP: 143/3.5, 103/27, 14/1.0, glucose 81, AST 130, ALT 76, alk phos 60 VBG: pH 7.43, pCO2 43, pO2 69, HCO3 27.7, lactate: 2.7 venous blood potassium: 3.3 troponin: 0.0170 PT: 11.4 INR: 1.0 urine drug screen: pending alcohol level: 304 salicylate level: <1.0 EKG: sinus tachycardia, no ST segment elevation/depression, no T wave inversion , prolonged QTc repeat EKG s/p drug ingestion: QTc still prolonged CXR: (preliminary) no active disease process IVF NS 1L @ 100 mL/hr NG tube placement, yielded no foreign body PMD: Dr. Padilla PMH: systolic CHF, uncontrolled HTN, Etoh abuse, hx suicide attempt PSY: reports previous suicide attempt w/ prescription medication ingestion, denies treatment for depression allergies: NKDA PSH: jaw ORIF 2014 Fam: denies SOC: currently intoxicated ROS: 12 points assessed and negative unless otherwise reported in HPI Present on Admission - Present on Admission Any Indicators Present on Admission: No History of DVT/PE: No History of Uncontrolled Diabetes: No Urinary Catheter: No Decubitus Ulcer Present: No Review of Systems - Review of Systems Systems not reviewed;Unavailable: Intoxicated All systems: reviewed and no additional remarkable complaints except - Constitutional Constitutional: Headache. absent: Fever - Cardiovascular Cardiovascular: absent: Chest Pain, Palpitations, Pedal Edema - Respiratory Respiratory: absent: Wheezing - Gastrointestinal Gastrointestinal: absent: Abdominal Pain, Diarrhea, Hematochezia, Melena, Nausea , Vomiting - Genitourinary Genitourinary: absent: Dysuria, Hematuria - Integumentary Integumentary: absent: Rash - Neurological Neurological: Headaches. absent: Dizziness - Psychiatric Psychiatric: Depression, Suicidal Ideation Past Patient History - Infectious Disease Hx of Infectious Diseases: None - Past Medical History & Family History Past Medical History?: Yes - Past Social History Smoking Status: Light Smoker < 10 Cigarettes Daily - CARDIAC Hx Hypercholesterolemia: Yes Hx Hypertension: Yes - PULMONARY Hx Respiratory Disorders: No - NEUROLOGICAL Hx Transient Ischemic Attacks (TIA): Yes - HEENT Hx HEENT Problems: No - RENAL Hx Chronic Kidney Disease: No - ENDOCRINE/METABOLIC Hx Endocrine Disorders: No - HEMATOLOGICAL/ONCOLOGICAL Hx Human Immunodeficiency Virus (HIV): No - INTEGUMENTARY Hx Dermatological Problems: No - MUSCULOSKELETAL/RHEUMATOLOGICAL Hx Falls: No - GASTROINTESTINAL Hx Gastrointestinal Disorders: No - GENITOURINARY/GYNECOLOGICAL Hx Genitourinary Disorders: No - PSYCHIATRIC Hx Depression: Yes Hx Substance Use: No - SURGICAL HISTORY Hx Surgeries: No - ANESTHESIA Hx Anesthesia: No Meds Allergies/Adverse Reactions: Allergies Allergy/AdvReac Type Severity Reaction Status Date / Time No Known Allergies Allergy Verified 04/04/17 18:00 Physical Exam - Constitutional Appears: No Acute Distress - Head Exam Head Exam: ATRAUMATIC, NORMAL INSPECTION, NORMOCEPHALIC - Eye Exam Eye Exam: Conjunctival injection, PERRL Pupil Exam: NORMAL ACCOMODATION - ENT Exam ENT Exam: Mucous Membranes Moist - Neck Exam Neck exam: Positive for: Full Rom. Negative for: Tenderness - Respiratory Exam Respiratory Exam: Clear to Auscultation Bilateral. absent: Decreased Breath Sounds, Rales, Rhonchi, Wheezes, Respiratory Distress - Cardiovascular Exam Cardiovascular Exam: REGULAR RHYTHM - GI/Abdominal Exam GI & Abdominal Exam: Normal Bowel Sounds, Soft. absent: Distended, Tenderness - Extremities Exam Extremities exam: Positive for: normal inspection. Negative for: calf tenderness, pedal edema, tenderness - Neurological Exam Neurological exam: Alert, Altered - Psychiatric Exam Psychiatric exam: Depressed, Suicidal Ideation - Skin Skin Exam: Dry, Intact, Normal Color, Warm Results - Vital Signs Recent Vital Signs: Last Vital Signs Temp 98 F 04/25/17 23:38 Pulse 72 04/25/17 23:38 Resp 18 04/25/17 23:38 BP 122/64 04/25/17 23:38 Pulse Ox 96 04/25/17 23:42 - Labs Result Diagrams: 04/25/17 23:26 04/25/17 23:26 Labs: Laboratory Results - last 24 hr 04/25/17 04/25/17 04/25/17 17:47 19:55 19:55 WBC 4.9 RBC 4.49 Hgb 13.2 Hct 40.5 MCV 90.3 D MCH 29.4 MCHC 32.5 L RDW 13.7 Plt Count 245 MPV 7.6 Neut % (Auto) 62.9 Lymph % (Auto) 27.8 [place] % (Auto) 7.8 Eos % (Auto) 0.3 Baso % (Auto) 1.2 Neut # (Auto) 3.1 Lymph # (Auto) 1.4 [place] # (Auto) 0.4 Eos # (Auto) 0.0 Baso # (Auto) 0.1 PT INR pO2 VBG pH VBG pCO2 VBG HCO3 VBG Total CO2 VBG O2 Sat (Calc) VBG Base Excess VBG Potassium Glucose Lactate FiO2 Sodium 144 Potassium 3.6 Chloride 99 Carbon Dioxide 23 Anion Gap 26 H BUN 16 Creatinine 1.1 Est GFR ( Amer) > 60 Est GFR (Non-Af Amer) > 60 POC Glucose (mg/dL) 72 Random Glucose 113 H Calcium 9.3 Total Bilirubin 1.5 H AST 163 H D ALT 88 H D Alkaline Phosphatase 79 Troponin I 0.0170 Total Protein 8.1 Albumin 4.7 Globulin 3.4 Albumin/Globulin Ratio 1.4 Venous Blood Potassium Salicylates Acetaminophen Alcohol, Quantitative 304 H* 04/25/17 04/25/17 04/25/17 19:55 19:55 23:23 WBC RBC Hgb Hct MCV MCH MCHC RDW Plt Count MPV Neut % (Auto) Lymph % (Auto) [place] % (Auto) Eos % (Auto) Baso % (Auto) Neut # (Auto) Lymph # (Auto) [place] # (Auto) Eos # (Auto) Baso # (Auto) PT 11.4 INR 1.0 pO2 69 H VBG pH 7.43 VBG pCO2 43 VBG HCO3 27.7 VBG Total CO2 29.8 H VBG O2 Sat (Calc) 96.4 H VBG Base Excess 3.7 H VBG Potassium 3.3 L Glucose 83 Lactate 2.7 H FiO2 21.0 Sodium 141.0 Potassium Chloride 107.0 Carbon Dioxide Anion Gap BUN Creatinine Est GFR ( Amer) Est GFR (Non-Af Amer) POC Glucose (mg/dL) Random Glucose Calcium Total Bilirubin AST ALT Alkaline Phosphatase Troponin I Total Protein Albumin Globulin Albumin/Globulin Ratio Venous Blood Potassium 3.3 L Salicylates < 1.0 Acetaminophen < 10.0 L Alcohol, Quantitative 04/25/17 04/25/17 23:26 23:26 WBC 4.5 L RBC 4.04 L Hgb 11.8 L Hct 36.1 MCV 89.4 MCH 29.3 MCHC 32.8 L RDW 13.9 Plt Count 217 MPV 6.9 L Neut % (Auto) 46.4 L Lymph % (Auto) 38.9 [place] % (Auto) 10.9 H Eos % (Auto) 2.3 Baso % (Auto) 1.5 Neut # (Auto) 2.1 Lymph # (Auto) 1.7 [place] # (Auto) 0.5 Eos # (Auto) 0.1 Baso # (Auto) 0.1 PT INR pO2 VBG pH VBG pCO2 VBG HCO3 VBG Total CO2 VBG O2 Sat (Calc) VBG Base Excess VBG Potassium Glucose Lactate FiO2 Sodium 143 Potassium 3.5 L Chloride 103 Carbon Dioxide 27 Anion Gap 17 BUN 14 Creatinine 1.0 Est GFR ( Amer) > 60 Est GFR (Non-Af Amer) > 60 POC Glucose (mg/dL) Random Glucose 81 Calcium 8.6 Total Bilirubin 1.3 AST 130 H D ALT 76 H Alkaline Phosphatase 60 Troponin I Total Protein 6.8 Albumin 3.9 Globulin 2.9 Albumin/Globulin Ratio 1.4 Venous Blood Potassium Salicylates Acetaminophen Alcohol, Quantitative Assessment & Plan - Assessment and Plan (Free Text) Assessment: The patient is a 51 y/o man w/ pmh of systolic CHF, uncontrolled HTN, Etoh abuse , hx suicide attempt is admitted for intentional drug ingestion Plan: Drug ingestion - patient witnessed to have ingested pills from bottle on him - bottles confiscated contained beta pavan and potassium - patient ingested unknown number of tablets - NG tube placed with no pill fragments found - poison control contacted and labs repeated - patient placed 1:1 - hx suicide attempt w/ prescription medication - admit for observation to TELE - consider transfer to psych upon normalization of labs - f/u morning labs Alcohol abuse - patient reports drinking heavily tonight - currently intoxicated - monitor for acute changes - IVF NS 1L @ 100 mL/hr HTN - uncontrolled - on carvedilol 3.125 mg PO BID, lisinopril 40 mg PO daily, norvasc 10 mg PO daily - monitor for acute changes Preserved Ejection Fraction CHF - last echo 06/18/2016: LV normal size, function, EF 65-70% - on lasix 20 mg PO BID Prophylactic Measures - lovenox 40 mg SC daily
[2017-04-26 07:57] LABS: BARBITURATES, UR NEGATIVE (NEGATIVE); BENZODIAZEPINES, UR NEGATIVE (NEGATIVE); OPIATES, UR NEGATIVE (NEGATIVE); PHENCYCLIDINE, UR NEGATIVE (NEGATIVE)
[2017-04-26] MEDS: Enoxaparin 40 mg Syringe SC SCH (08:03)
[2017-04-26 08:24] LABS: BASO # 0.1 K/uL (0.0-0.2); EOS # 0.1 K/uL (0.0-0.7); EOS % 2.2 % (0.0-4.0); HEMOGLOBIN 11.8 g/dL (12.0-18.0); LYMPH # 1.2 K/uL (1.0-4.3); LYMPH % 23.9 % (20.0-40.0); MEAN CELL VOLUME 89.8 fl (80.0-94.0); MEAN CORPUSCULAR HEMOGLOBIN 28.9 pg (27.0-31.0); MEAN CORPUSCULAR HGB CONC 32.2 g/dL (33.0-37.0); MEAN PLATELET VOLUME 7.1 fl (7.2-11.7); MONO # 0.5 K/uL (0.0-0.8); MONO % 9.8 % (0.0-10.0); NEUT # 3.2 K/uL (1.8-7.0); NEUT % 63.1 % (50.0-75.0); NRBC % 0.1 % (0.0-0.0); RBC 4.09 Mil/uL (4.40-5.90); RED CELL DISTRIBUTION WIDTH 13.7 % (11.5-14.5); WHITE BLOOD COUNT 5.1 K/uL (4.8-10.8)
--- NOTE | 2017-04-26 08:38 | RAD ---
HISTORY: cp COMPARISON: Chest radiograph dated 04/04/2017. TECHNIQUE: Chest PA and lateral FINDINGS: LUNGS: No active pulmonary disease. Tiny right midlung calcified granuloma redemonstrated. PLEURA: No significant pleural effusion identified. No pneumothorax apparent. CARDIOVASCULAR: Normal. OSSEOUS STRUCTURES: Unchanged. VISUALIZED UPPER ABDOMEN: Normal. OTHER FINDINGS: None. IMPRESSION: No active disease.
--- NOTE | 2017-04-26 08:53 | RAD ---
PROCEDURE: CHEST RADIOGRAPH, 1 VIEW HISTORY: cp COMPARISON: Chest radiograph performed approximately 1.5 hours prior. FINDINGS: LUNGS: Clear. PLEURA: No pneumothorax or pleural fluid seen. CARDIOVASCULAR: Normal. OSSEOUS STRUCTURES: Unchanged. VISUALIZED UPPER ABDOMEN: Normal. OTHER FINDINGS: Interval placement of nasogastric tube with tip in the stomach. IMPRESSION: Interval placement nasogastric tube in satisfactory position. No other significant interval change.
[2017-04-26 10:14] LABS: ALB/GLOB RATIO 1.2 (1.0-2.1); ALBUMIN 3.8 g/dL (3.5-5.0); ALT/SGPT 72 U/L (21-72); AST/SGOT 122 U/L (17-59); BLOOD UREA NITROGEN 12 mg/dl (9-20); CALCIUM 8.6 mg/dL (8.4-10.2); GFR AFRICAN-AMERICAN > 60; GFR NON-AFRICAN AMERICAN > 60
--- NOTE | 2017-04-26 11:14 | CARD ---
APPROVED REPORT EKG Measurement Heart [id number] <Conclusion> Normal sinus rhythm Minimal voltage criteria for LVH, may be normal variant Nonspecific T wave abnormality Abnormal ECG
--- NOTE | 2017-04-26 11:16 | CARD ---
APPROVED REPORT EKG Measurement Heart [id number] <Conclusion> Normal sinus rhythm Minimal voltage criteria for LVH, may be normal variant Nonspecific T wave abnormality Abnormal ECG
--- NOTE | 2017-04-26 11:19 | CARD ---
APPROVED REPORT EKG Measurement Heart [id number] <Conclusion> Sinus tachycardia Possible Left atrial enlargement Left ventricular hypertrophy Nonspecific T wave abnormality Abnormal ECG
--- NOTE | 2017-04-26 13:38 | CP.PCM.CON ---
History of Present Illness - History of Present Illness History of Present Illness: This is a 51 yr old male with h/o cardiac issues,HTN and h/o alcohol abuse originally brought by EMS for chest pain and staff witnessed pt ingesting unknown amount of pills from bottle.pt has reported drinking heavy and alcohol level was 304 upon admission and pt also reports h/o suicidal attempt on prescription drugs.pt says that he made a suicidal attempt a month ago but did not go for psychiatric treatment and this time he was very angry with himself and impulsively overdose on his blood pressure pills in front of the ER staff and pt minimises his suicidal behavior and has poor insight. pt has also been drinking heavily and minimises his alcohol intake. Past Patient History - Infectious Disease Hx of Infectious Diseases: None - Past Medical History & Family History Past Medical History?: Yes - Past Social History Smoking Status: Light Smoker < 10 Cigarettes Daily - CARDIAC Hx Hypercholesterolemia: Yes Hx Hypertension: Yes - PULMONARY Hx Respiratory Disorders: No - NEUROLOGICAL Hx Transient Ischemic Attacks (TIA): Yes - HEENT Hx HEENT Problems: No - RENAL Hx Chronic Kidney Disease: No - ENDOCRINE/METABOLIC Hx Endocrine Disorders: No - HEMATOLOGICAL/ONCOLOGICAL Hx Human Immunodeficiency Virus (HIV): No - INTEGUMENTARY Hx Dermatological Problems: No - MUSCULOSKELETAL/RHEUMATOLOGICAL Hx Falls: No - GASTROINTESTINAL Hx Gastrointestinal Disorders: No - GENITOURINARY/GYNECOLOGICAL Hx Genitourinary Disorders: No - PSYCHIATRIC Hx Depression: Yes Hx Substance Use: No - SURGICAL HISTORY Hx Surgeries: No - ANESTHESIA Hx Anesthesia: No Meds Allergies/Adverse Reactions: Allergies Allergy/AdvReac Type Severity Reaction Status Date / Time No Known Allergies Allergy Verified 04/04/17 18:00 - Medications Medications: Current Medications Amlodipine Besylate (Norvasc) 10 mg PO DAILY [facility] Last Admin: 04/26/17 08:00 Dose: 10 mg Aspirin (Aspirin Chewable) 81 mg PO DAILY [facility] Last Admin: 04/26/17 08:00 Dose: 81 mg Atorvastatin Calcium (Lipitor) 20 mg PO DAILY [facility] Last Admin: 04/26/17 08:01 Dose: 20 mg Carvedilol (Coreg) 3.125 mg PO Q12H [facility] Last Admin: 04/26/17 04:26 Dose: 3.125 mg Enoxaparin Sodium (Lovenox) 40 mg SC DAILY [facility] PRN Reason: Protocol Last Admin: 04/26/17 08:03 Dose: Not Given Lisinopril (Zestril) 40 mg PO DAILY [facility] Last Admin: 04/26/17 08:01 Dose: 40 mg Nicotine (Nicoderm Cq) 1 patch TD DAILY [facility] Last Admin: 04/26/17 08:03 Dose: 1 patch Physical Exam - Constitutional Appears: Well - Psychiatric Exam Psychiatric exam: Anxious, Depressed, Flat Affect, Suicidal Ideation Additional comments: pt is alert,orientedx3 with depressed and anxious mood.pt has intact memory but poor concentration.pt remains potentially suicidal .no psychosis.poor insight and poor judgement. Results - Vital Signs Recent Vital Signs: Last Vital Signs Temp 97.9 F 04/26/17 07:26 Pulse 65 04/26/17 13:00 Resp 16 04/26/17 13:00 BP 173/112 H 04/26/17 13:01 Pulse Ox 95 04/26/17 13:00 - Labs Result Diagrams: 04/26/17 07:00 04/26/17 07:42 Labs: Laboratory Results - last 24 hr 04/25/17 04/25/17 04/25/17 17:47 19:55 19:55 WBC 4.9 RBC 4.49 Hgb 13.2 Hct 40.5 MCV 90.3 D MCH 29.4 MCHC 32.5 L RDW 13.7 Plt Count 245 MPV 7.6 Neut % (Auto) 62.9 Lymph % (Auto) 27.8 [place] % (Auto) 7.8 Eos % (Auto) 0.3 Baso % (Auto) 1.2 Neut # (Auto) 3.1 Lymph # (Auto) 1.4 [place] # (Auto) 0.4 Eos # (Auto) 0.0 Baso # (Auto) 0.1 PT INR pO2 VBG pH VBG pCO2 VBG HCO3 VBG Total CO2 VBG O2 Sat (Calc) VBG Base Excess VBG Potassium Glucose Lactate FiO2 Sodium 144 Potassium 3.6 Chloride 99 Carbon Dioxide 23 Anion Gap 26 H BUN 16 Creatinine 1.1 Est GFR ( Amer) > 60 Est GFR (Non-Af Amer) > 60 POC Glucose (mg/dL) 72 Random Glucose 113 H Calcium 9.3 Total Bilirubin 1.5 H AST 163 H D ALT 88 H D Alkaline Phosphatase 79 Troponin I 0.0170 Total Protein 8.1 Albumin 4.7 Globulin 3.4 Albumin/Globulin Ratio 1.4 Venous Blood Potassium Salicylates Urine Opiates Screen Urine Methadone Screen Acetaminophen Ur Barbiturates Screen Ur Phencyclidine Scrn Ur Amphetamines Screen U Benzodiazepines Scrn U Oth Cocaine Metabols U Cannabinoids Screen Alcohol, Quantitative 304 H* 04/25/17 04/25/17 04/25/17 19:55 19:55 23:23 WBC RBC Hgb Hct MCV MCH MCHC RDW Plt Count MPV Neut % (Auto) Lymph % (Auto) [place] % (Auto) Eos % (Auto) Baso % (Auto) Neut # (Auto) Lymph # (Auto) [place] # (Auto) Eos # (Auto) Baso # (Auto) PT 11.4 INR 1.0 pO2 69 H VBG pH 7.43 VBG pCO2 43 VBG HCO3 27.7 VBG Total CO2 29.8 H VBG O2 Sat (Calc) 96.4 H VBG Base Excess 3.7 H VBG Potassium 3.3 L Glucose 83 Lactate 2.7 H FiO2 21.0 Sodium 141.0 Potassium Chloride 107.0 Carbon Dioxide Anion Gap BUN Creatinine Est GFR ( Amer) Est GFR (Non-Af Amer) POC Glucose (mg/dL) Random Glucose Calcium Total Bilirubin AST ALT Alkaline Phosphatase Troponin I Total Protein Albumin Globulin Albumin/Globulin Ratio Venous Blood Potassium 3.3 L Salicylates < 1.0 Urine Opiates Screen Urine Methadone Screen Acetaminophen < 10.0 L Ur Barbiturates Screen Ur Phencyclidine Scrn Ur Amphetamines Screen U Benzodiazepines Scrn U Oth Cocaine Metabols U Cannabinoids Screen Alcohol, Quantitative 04/25/17 04/25/17 04/26/17 23:26 23:26 07:00 WBC 4.5 L 5.1 RBC 4.04 L 4.09 L Hgb 11.8 L 11.8 L Hct 36.1 36.7 MCV 89.4 89.8 MCH 29.3 28.9 MCHC 32.8 L 32.2 L RDW 13.9 13.7 Plt Count 217 221 MPV 6.9 L 7.1 L Neut % (Auto) 46.4 L 63.1 Lymph % (Auto) 38.[address] [place] % (Auto) 10.9 H 9.8 Eos % (Auto) 2.3 2.2 Baso % (Auto) 1.5 1.0 Neut # (Auto) 2.1 3.2 Lymph # (Auto) 1.[address] [place] # (Auto) 0.5 0.5 Eos # (Auto) 0.1 0.1 Baso # (Auto) 0.1 0.1 PT INR pO2 VBG pH VBG pCO2 VBG HCO3 VBG Total CO2 VBG O2 Sat (Calc) VBG Base Excess VBG Potassium Glucose Lactate FiO2 Sodium 143 Potassium 3.5 L Chloride 103 Carbon Dioxide 27 Anion Gap 17 BUN 14 Creatinine 1.0 Est GFR ( Amer) > 60 Est GFR (Non-Af Amer) > 60 POC Glucose (mg/dL) Random Glucose 81 Calcium 8.6 Total Bilirubin 1.3 AST 130 H D ALT 76 H Alkaline Phosphatase 60 Troponin I Total Protein 6.8 Albumin 3.9 Globulin 2.9 Albumin/Globulin Ratio 1.4 Venous Blood Potassium Salicylates Urine Opiates Screen Urine Methadone Screen Acetaminophen Ur Barbiturates Screen Ur Phencyclidine Scrn Ur Amphetamines Screen U Benzodiazepines Scrn U Oth Cocaine Metabols U Cannabinoids Screen Alcohol, Quantitative 04/26/17 04/26/17 07:31 07:42 WBC RBC Hgb Hct MCV MCH MCHC RDW Plt Count MPV Neut % (Auto) Lymph % (Auto) [place] % (Auto) Eos % (Auto) Baso % (Auto) Neut # (Auto) Lymph # (Auto) [place] # (Auto) Eos # (Auto) Baso # (Auto) PT INR pO2 VBG pH VBG pCO2 VBG HCO3 VBG Total CO2 VBG O2 Sat (Calc) VBG Base Excess VBG Potassium Glucose Lactate FiO2 Sodium 141 Potassium 3.9 Chloride 103 Carbon Dioxide 25 Anion Gap 17 BUN 12 Creatinine 0.9 Est GFR ( Amer) > 60 Est GFR (Non-Af Amer) > 60 POC Glucose (mg/dL) Random Glucose 87 Calcium 8.6 Total Bilirubin 1.6 H AST 122 H ALT 72 Alkaline Phosphatase 61 Troponin I Total Protein 6.9 Albumin 3.8 Globulin 3.1 Albumin/Globulin Ratio 1.2 Venous Blood Potassium Salicylates Urine Opiates Screen Negative Urine Methadone Screen Negative Acetaminophen Ur Barbiturates Screen Negative Ur Phencyclidine Scrn Negative Ur Amphetamines Screen Negative U Benzodiazepines Scrn Negative U Oth Cocaine Metabols Negative U Cannabinoids Screen Negative Alcohol, Quantitative Assessment & Plan - Assessment and Plan (Free Text) Assessment: Major depression alcohol dependence Plan: Continue 1:1 obsevation pt is risk for suicide and need inpt psychiatric admission. pt is volubtary for psych admission to [facility] when medically cleared but if he refuses voluntary admission i recommend screening him by [facility] for committment. call psychiatry lactation coordinator tomorrow for follow up.
--- NOTE | 2017-04-27 09:31 | CP.PCM.PN ---
Subjective - Date & Time of Evaluation Date of Evaluation: 04/27/17 Time of Evaluation: 06:45 - Subjective Subjective: Patient seen and examined at bedside. Patient is AAOx3, NAD, laying in bed comfortably. Patient has no complaints. Patient denies headaches, dizziness, chest pain, SOB, abdominal pain, nausea, vomiting, diarrhea, dysuria, or fever. Objective - Vital Signs/Intake and Output Vital Signs (last 24 hours): Temp Pulse Resp BP Pulse Ox 97.7 F 66 18 169/125 H 100 04/27/17 08:00 04/27/17 08:00 04/27/17 08:00 04/27/17 08:00 04/27/17 08:00 - Medications Medications: Current Medications Amlodipine Besylate (Norvasc) 10 mg PO DAILY [facility] Last Admin: 04/26/17 08:00 Dose: 10 mg Aspirin (Aspirin Chewable) 81 mg PO DAILY [facility] Last Admin: 04/26/17 08:00 Dose: 81 mg Atorvastatin Calcium (Lipitor) 20 mg PO DAILY [facility] Last Admin: 04/26/17 08:01 Dose: 20 mg Carvedilol (Coreg) 3.125 mg PO Q12H [facility] Last Admin: 04/27/17 01:01 Dose: Not Given Enoxaparin Sodium (Lovenox) 40 mg SC DAILY [facility] PRN Reason: Protocol Last Admin: 04/26/17 08:03 Dose: Not Given Lisinopril (Zestril) 40 mg PO DAILY [facility] Last Admin: 04/26/17 08:01 Dose: 40 mg Nicotine (Nicoderm Cq) 1 patch TD DAILY [facility] Last Admin: 04/26/17 08:03 Dose: 1 patch - Labs Labs: 04/26/17 07:00 04/26/17 07:42 PT 11.4 Seconds (9.8-13.1) 04/25/17 19:55 INR 1.0 (0.9-1.2) 04/25/17 19:55 - Constitutional Appears: No Acute Distress - Head Exam Head Exam: ATRAUMATIC, NORMAL INSPECTION, NORMOCEPHALIC - Eye Exam Eye Exam: Normal appearance - ENT Exam ENT Exam: Mucous Membranes Moist - Neck Exam Neck Exam: Full ROM. absent: Tenderness - Respiratory Exam Respiratory Exam: Clear to Ausculation Bilateral, NORMAL BREATHING PATTERN. absent: Rales, Rhonchi, Wheezes, Respiratory Distress - Cardiovascular Exam Cardiovascular Exam: REGULAR RHYTHM. absent: Tachycardia - GI/Abdominal Exam GI & Abdominal Exam: Soft, Normal Bowel Sounds. absent: Distended, Tenderness - Extremities Exam Extremities Exam: Normal Inspection. absent: Calf Tenderness, Pedal Edema, Tenderness - Neurological Exam Neurological Exam: Alert, Awake, Oriented x3 - Skin Skin Exam: Dry, Intact, Normal Color, Warm Assessment and Plan - Assessment and Plan (Free Text) Assessment: 51 y/o man w/ pmh of systolic CHF, uncontrolled HTN, Etoh abuse, hx suicide attempt is admitted for intentional drug ingestion Plan: Drug ingestion - patient witnessed to have ingested pills from bottle on him - bottles confiscated contained beta pavan and potassium - patient ingested unknown number of tablets - NG tube placed with no pill fragments found - poison control contacted and labs repeated - patient placed 1:1 - hx suicide attempt w/ prescription medication - admit for observation to TELE - follow up labs normalized - seen by psych consult, Dr. Rocha, recommendations appreciated; need voluntary inpatient psychiatric admission, if refuses needs screening by [facility] Alcohol abuse - patient reports drinking heavily - denies withdrawal and DTs in the past - monitor for acute changes HTN - uncontrolled - on carvedilol 3.125 mg PO BID, lisinopril 40 mg PO daily, norvasc 10 mg PO daily - started HCTZ 12.5 mg PO daily - monitor for acute changes Preserved Ejection Fraction CHF - last echo 06/18/2016: LV normal size, function, EF 65-70% - hold lasix 20 mg PO BID Prophylactic Measures - lovenox 40 mg SC daily
--- NOTE | 2017-04-27 09:38 | CP.PCM.CON ---
History of Present Illness - History of Present Illness History of Present Illness: Psychiatry consult follow-up note CC: "I'm okay now." HPI: 51 yo male h/o chest pain, HTN, alcohol, presented in the ER acutely intoxicated on ETOH (BAL 304), ingested an unknown amount of pills in the ER and also has a history of prior suicide attempt 1 month ago as per previous psychiatric evaluation. Patient at this time denies acute depression/anxiety/ SI/HI/AH/VH. He denies all psychiatric symptoms and does not believe he needs acute psychiatric admission. MSE: A + O x 3, calm, cooperative, full range of affect, mood "okay", speech rapid, thought process- linear/coherent, thought content- no delusions, no SI/HI /AH/VH, poor I/J Impression: 51 yo male w/ alcohol abuse, presented w/ acute suicide attempt in the ER while acutely intoxicated. Patient now denies all psychiatric symptoms and does not believe he needs psychiatric admission. Recommendation: -Screen for involuntary admission when patient is medically stable; if he is not accepted for involuntary admission, patient can be discharged with outpatient follow-up -Alcohol withdrawal protocol as per CIWA -Continue 1:1 for safety until patient is screened for involuntary psychiatric admission Past Patient History - Infectious Disease Hx of Infectious Diseases: None - Past Medical History & Family History Past Medical History?: Yes - Past Social History Smoking Status: Light Smoker < 10 Cigarettes Daily - CARDIAC Hx Hypercholesterolemia: Yes Hx Hypertension: Yes - PULMONARY Hx Respiratory Disorders: No - NEUROLOGICAL Hx Transient Ischemic Attacks (TIA): Yes - HEENT Hx HEENT Problems: No - RENAL Hx Chronic Kidney Disease: No - ENDOCRINE/METABOLIC Hx Endocrine Disorders: No - HEMATOLOGICAL/ONCOLOGICAL Hx Human Immunodeficiency Virus (HIV): No - INTEGUMENTARY Hx Dermatological Problems: No - MUSCULOSKELETAL/RHEUMATOLOGICAL Hx Falls: No - GASTROINTESTINAL Hx Gastrointestinal Disorders: No - GENITOURINARY/GYNECOLOGICAL Hx Genitourinary Disorders: No - PSYCHIATRIC Hx Substance Use: No - SURGICAL HISTORY Hx Surgeries: No - ANESTHESIA Hx Anesthesia: No Meds Allergies/Adverse Reactions: Allergies Allergy/AdvReac Type Severity Reaction Status Date / Time No Known Allergies Allergy Verified 04/04/17 18:00 - Medications Medications: Current Medications Amlodipine Besylate (Norvasc) 10 mg PO DAILY [facility] Last Admin: 04/26/17 08:00 Dose: 10 mg Aspirin (Aspirin Chewable) 81 mg PO DAILY [facility] Last Admin: 04/26/17 08:00 Dose: 81 mg Atorvastatin Calcium (Lipitor) 20 mg PO DAILY [facility] Last Admin: 04/26/17 08:01 Dose: 20 mg Carvedilol (Coreg) 3.125 mg PO Q12H [facility] Last Admin: 04/27/17 01:01 Dose: Not Given Enoxaparin Sodium (Lovenox) 40 mg SC DAILY [facility] PRN Reason: Protocol Last Admin: 04/26/17 08:03 Dose: Not Given Lisinopril (Zestril) 40 mg PO DAILY [facility] Last Admin: 04/26/17 08:01 Dose: 40 mg Nicotine (Nicoderm Cq) 1 patch TD DAILY [facility] Last Admin: 04/26/17 08:03 Dose: 1 patch Results - Vital Signs Recent Vital Signs: Last Vital Signs Temp 97.7 F 04/27/17 08:00 Pulse 66 04/27/17 08:00 Resp 18 04/27/17 08:00 BP 169/125 H 04/27/17 08:00 Pulse Ox 100 04/27/17 08:00 - Labs Result Diagrams: 04/26/17 07:00 04/26/17 07:42 Labs: Laboratory Results - last 24 hr 04/26/17 07:42 Sodium 141 Potassium 3.9 Chloride 103 Carbon Dioxide 25 Anion Gap 17 BUN 12 Creatinine 0.9 Est GFR ( Amer) > 60 Est GFR (Non-Af Amer) > 60 Random Glucose 87 Calcium 8.6 Total Bilirubin 1.6 H AST 122 H ALT 72 Alkaline Phosphatase 61 Total Protein 6.9 Albumin 3.8 Globulin 3.1 Albumin/Globulin Ratio 1.2
[2017-04-27] MEDS: Enoxaparin 40 mg Syringe SC SCH (09:49)
[2017-04-28 00:41] LABS: URINE BILIRUBIN NEGATIVE (NEGATIVE); URINE BLOOD SMALL (NEGATIVE); URINE CLARITY SLIGHTY-CLOUDY (Clear); URINE COLOR AMBER (YELLOW); URINE GLUCOSE (UA) NEG (Normal); URINE LEUKOCYTE ESTERASE NEG Leu/uL (Negative); URINE NITRATE NEGATIVE (NEGATIVE); URINE PROTEIN 100 mg/dL (NEGATIVE)
--- NOTE | 2017-04-28 08:58 | CP.PCM.PN ---
Subjective - Date & Time of Evaluation Date of Evaluation: 04/28/17 Time of Evaluation: 07:30 - Subjective Subjective: Patient seen and examined at bedside. Patient is AAOx3, NAD, laying in bed comfortably. Patient has no complaints. Patient denies headaches, dizziness, chest pain, SOB, abdominal pain, nausea, vomiting, diarrhea, dysuria, or fever. Objective - Vital Signs/Intake and Output Vital Signs (last 24 hours): Temp Pulse Resp BP Pulse Ox 98.1 F 55 L 18 145/95 H 98 04/28/17 05:20 04/28/17 05:20 04/28/17 05:20 04/28/17 05:20 04/28/17 05:20 - Medications Medications: Current Medications Amlodipine Besylate (Norvasc) 10 mg PO DAILY [facility] Last Admin: 04/27/17 09:44 Dose: 10 mg Aspirin (Aspirin Chewable) 81 mg PO DAILY [facility] Last Admin: 04/27/17 09:44 Dose: 81 mg Atorvastatin Calcium (Lipitor) 20 mg PO DAILY [facility] Last Admin: 04/27/17 09:44 Dose: 20 mg Carvedilol (Coreg) 3.125 mg PO Q12H [facility] Last Admin: 04/27/17 22:10 Dose: 3.125 mg Enoxaparin Sodium (Lovenox) 40 mg SC DAILY [facility] PRN Reason: Protocol Last Admin: 04/27/17 09:49 Dose: Not Given Hydrochlorothiazide (Microzide) 12.5 mg PO DAILY [facility] Last Admin: 04/27/17 11:26 Dose: 12.5 mg Lisinopril (Zestril) 40 mg PO DAILY [facility] Last Admin: 04/27/17 09:45 Dose: 40 mg Nicotine (Nicoderm Cq) 1 patch TD DAILY [facility] Last Admin: 04/27/17 09:45 Dose: 1 patch - Labs Labs: 04/26/17 07:00 04/26/17 07:42 PT 11.4 Seconds (9.8-13.1) 04/25/17 19:55 INR 1.0 (0.9-1.2) 04/25/17 19:55 - Constitutional Appears: No Acute Distress - Head Exam Head Exam: ATRAUMATIC, NORMAL INSPECTION, NORMOCEPHALIC - Eye Exam Eye Exam: Normal appearance - ENT Exam ENT Exam: Mucous Membranes Moist - Neck Exam Neck Exam: Full ROM. absent: Tenderness - Respiratory Exam Respiratory Exam: Clear to Ausculation Bilateral, NORMAL BREATHING PATTERN. absent: Decreased Breath Sounds, Rales, Rhonchi, Wheezes, Respiratory Distress - Cardiovascular Exam Cardiovascular Exam: REGULAR RHYTHM. absent: Tachycardia - GI/Abdominal Exam GI & Abdominal Exam: Soft, Normal Bowel Sounds. absent: Distended, Tenderness - Extremities Exam Extremities Exam: Normal Inspection. absent: Calf Tenderness, Pedal Edema, Tenderness - Neurological Exam Neurological Exam: Alert, Awake, Normal Gait, Oriented x3 - Skin Skin Exam: Dry, Intact, Normal Color, Warm Assessment and Plan - Assessment and Plan (Free Text) Assessment: 51 y/o man w/ pmh of systolic CHF, uncontrolled HTN, Etoh abuse, hx suicide attempt is admitted for intentional drug ingestion Plan: Drug ingestion - patient witnessed to have ingested pills from bottle on him - bottles confiscated contained beta pavan and potassium - patient ingested unknown number of tablets - NG tube placed with no pill fragments found - poison control contacted and labs repeated - patient placed 1:1 - hx suicide attempt w/ prescription medication - admit for observation to TELE - follow up labs normalized - Psych re-consulted, Dr. Muñoz, recommendations appreciated: can DC 1:1, patient agrees to voluntary inpatient psychiatric admission Alcohol abuse - patient reports drinking heavily - denies withdrawal and DTs in the past - patient continues to deny withdrawal symptoms at this time - monitor for acute changes HTN - uncontrolled - on carvedilol 3.125 mg PO BID, lisinopril 40 mg PO daily, norvasc 10 mg PO daily - started HCTZ 12.5 mg PO daily - monitor for acute changes Preserved Ejection Fraction CHF - last echo 06/18/2016: LV normal size, function, EF 65-70% - hold lasix 20 mg PO BID Prophylactic Measures - lovenox 40 mg SC daily Dispo: pending voluntary inpatient admission placement
[2017-04-28] MEDS: Enoxaparin 40 mg Syringe SC SCH (09:48)
--- NOTE | 2017-04-28 13:27 | CP.PCM.CON ---
History of Present Illness - History of Present Illness History of Present Illness: Psychiatry follow-up note CC: "I'm okay." HPI: 51 yo male h/o chest pain, HTN, alcohol, presented in the ER acutely intoxicated on ETOH (BAL 304), ingested an unknown amount of pills in the ER and also has a history of prior suicide attempt 1 month ago as per previous psychiatric evaluation. Patient continues to minimize his recent suicide attempt but states that he is now agreeable to psychiatric admission and treatment. Patient was screened by [facility] and found not to meet criteria for involuntary commitment. MSE: A + O x 3, calm, cooperative, full range of affect, mood "okay", speech rapid, thought process- linear/coherent, thought content- no delusions, no SI/HI /AH/VH, poor I/J Impression: 51 yo male w/ alcohol abuse, presented w/ acute suicide attempt in the ER while acutely intoxicated. Patient is now agreeable for voluntary psychiatric admission. Recommendation: -Can discontinue 1:1 at this time, as patient can contract for safety and has been in good behavioral control -Recommend inpatient voluntary psychiatric admission, patient is agreeable at this time -If patient decides he no longer wants voluntary psychiatric admission, patient can be discharged as he would found to not meet criteria for involuntary commitment by [facility] -Alcohol withdrawal protocol as per CIWA; patient denies current signs/symptoms of ETOH withdrawal Past Patient History - Infectious Disease Hx of Infectious Diseases: None - Past Medical History & Family History Past Medical History?: Yes - Past Social History Smoking Status: Light Smoker < 10 Cigarettes Daily - CARDIAC Hx Cardiac Disorders: Yes Hx Hypercholesterolemia: Yes Hx Hypertension: Yes - PULMONARY Hx Respiratory Disorders: No - NEUROLOGICAL Hx Transient Ischemic Attacks (TIA): Yes - HEENT Hx HEENT Problems: No - RENAL Hx Chronic Kidney Disease: No - ENDOCRINE/METABOLIC Hx Endocrine Disorders: No - HEMATOLOGICAL/ONCOLOGICAL Hx Human Immunodeficiency Virus (HIV): No - INTEGUMENTARY Hx Dermatological Problems: No - MUSCULOSKELETAL/RHEUMATOLOGICAL Hx Falls: No - GASTROINTESTINAL Hx Gastrointestinal Disorders: No - GENITOURINARY/GYNECOLOGICAL Hx Genitourinary Disorders: No - PSYCHIATRIC Hx Substance Use: No - SURGICAL HISTORY Hx Surgeries: No - ANESTHESIA Hx Anesthesia: No Meds Allergies/Adverse Reactions: Allergies Allergy/AdvReac Type Severity Reaction Status Date / Time No Known Allergies Allergy Verified 04/04/17 18:00 - Medications Medications: Current Medications Amlodipine Besylate (Norvasc) 10 mg PO DAILY [facility] Last Admin: 04/28/17 09:47 Dose: 10 mg Aspirin (Aspirin Chewable) 81 mg PO DAILY [facility] Last Admin: 04/28/17 09:48 Dose: 81 mg Atorvastatin Calcium (Lipitor) 20 mg PO DAILY [facility] Last Admin: 04/28/17 09:48 Dose: 20 mg Carvedilol (Coreg) 3.125 mg PO Q12H [facility] Last Admin: 04/28/17 09:47 Dose: 3.125 mg Enoxaparin Sodium (Lovenox) 40 mg SC DAILY [facility] PRN Reason: Protocol Last Admin: 04/28/17 09:48 Dose: Not Given Hydrochlorothiazide (Microzide) 12.5 mg PO DAILY [facility] Last Admin: 04/28/17 09:47 Dose: 12.5 mg Lisinopril (Zestril) 40 mg PO DAILY [facility] Last Admin: 04/28/17 09:47 Dose: 40 mg Nicotine (Nicoderm Cq) 1 patch TD DAILY [facility] Last Admin: 04/28/17 09:48 Dose: 1 patch Results - Vital Signs Recent Vital Signs: Last Vital Signs Temp 97.2 F L 04/28/17 08:00 Pulse 60 04/28/17 09:47 Resp 18 04/28/17 08:00 BP 146/105 H 04/28/17 09:47 Pulse Ox 99 04/28/17 08:00 - Labs Result Diagrams: 04/26/17 07:00 04/26/17 07:42 Labs: Laboratory Results - last 24 hr 04/27/17 11:43 Urine Color Hanna Urine Clarity Slighty-cloudy Urine pH 6.0 Ur Specific [place] 1.029 Urine Protein 100 Urine Glucose (UA) Neg Urine Ketones Negative Urine Blood Small Urine Nitrate Negative Urine Bilirubin Negative Urine Urobilinogen 4.0 Ur Leukocyte Esterase Neg Urine RBC (Auto) 4 H Urine Microscopic WBC 2
--- NOTE | 2017-04-28 17:36 | CP.PCM.DIS ---
Provider - Provider Date of Admission: 04/27/17 14:55 Attending physician: Paulette Quinn MD Time Spent in preparation of Discharge (in minutes): 40 Diagnosis - Discharge Diagnosis (1) Drug ingestion Status: Acute (2) ETOH abuse Status: Acute (3) Suicidal ideation Status: Acute Hospital Course - Lab Results Lab Results: Most Recent Lab Values WBC 5.1 K/uL (4.8-10.8) 04/26/17 07:00 RBC 4.09 Mil/uL (4.40-5.90) L 04/26/17 07:00 Hgb 11.8 g/dL (12.0-18.0) L 04/26/17 07:00 Hct 36.7 % (35.0-51.0) 04/26/17 07:00 MCV 89.8 fl (80.0-94.0) 04/26/17 07:00 MCH 28.9 pg (27.0-31.0) 04/26/17 07:00 MCHC 32.2 g/dL (33.0-37.0) L 04/26/17 07:00 RDW 13.7 % (11.5-14.5) 04/26/17 07:00 Plt Count 221 K/uL (130-400) 04/26/17 07:00 MPV 7.1 fl (7.2-11.7) L 04/26/17 07:00 Neut % (Auto) 63.1 % (50.0-75.0) 04/26/17 07:00 Lymph % (Auto) 23.9 % (20.0-40.0) 04/26/17 07:00 [place] % (Auto) 9.8 % (0.0-10.0) 04/26/17 07:00 Eos % (Auto) 2.2 % (0.0-4.0) 04/26/17 07:00 Baso % (Auto) 1.0 % (0.0-2.0) 04/26/17 07:00 Neut # (Auto) 3.2 K/uL (1.8-7.0) 04/26/17 07:00 Lymph # (Auto) 1.2 K/uL (1.0-4.3) 04/26/17 07:00 [place] # (Auto) 0.5 K/uL (0.0-0.8) 04/26/17 07:00 Eos # (Auto) 0.1 K/uL (0.0-0.7) 04/26/17 07:00 Baso # (Auto) 0.1 K/uL (0.0-0.2) 04/26/17 07:00 PT 11.4 Seconds (9.8-13.1) 04/25/17 19:55 INR 1.0 (0.9-1.2) 04/25/17 19:55 pO2 69 mm/Hg (30-55) H 04/25/17 23:23 VBG pH 7.43 (7.32-7.43) 04/25/17 23:23 VBG pCO2 43 mmHg (40-60) 04/25/17 23:23 VBG HCO3 27.7 mmol/L 04/25/17 23:23 VBG Total CO2 29.8 mmol/L (22-28) H 04/25/17 23:23 VBG O2 Sat (Calc) 96.4 % (40-65) H 04/25/17 23:23 VBG Base Excess 3.7 mmol/L (0.0-2.0) H 04/25/17 23:23 VBG Potassium 3.3 mmol/L (3.6-5.2) L 04/25/17 23:23 Sodium 141.0 mmol/L (132-148) 04/25/17 23:23 Chloride 107.0 mmol/L (98-107) 04/25/17 23:23 Glucose 83 mg/dL (75-110) 04/25/17 23:23 Lactate 2.7 mmol/L (0.7-2.1) H 04/25/17 23:23 FiO2 21.0 % 04/25/17 23:23 Sodium 141 mmol/l (132-148) 04/26/17 07:42 Potassium 3.9 MMOL/L (3.6-5.0) 04/26/17 07:42 Chloride 103 mmol/L (98-107) 04/26/17 07:42 Carbon Dioxide 25 mmol/L (22-30) 04/26/17 07:42 Anion Gap 17 (10-20) 04/26/17 07:42 BUN 12 mg/dl (9-20) 04/26/17 07:42 Creatinine 0.9 mg/dl (0.8-1.5) 04/26/17 07:42 Est GFR ( Amer) > 60 04/26/17 07:42 Est GFR (Non-Af Amer) > 60 04/26/17 07:42 POC Glucose (mg/dL) 72 mg/dL (65-110) 04/25/17 17:47 Random Glucose 87 mg/dL (75-110) 04/26/17 07:42 Calcium 8.6 mg/dL (8.4-10.2) 04/26/17 07:42 Total Bilirubin 1.6 mg/dl (0.2-1.3) H 04/26/17 07:42 AST 122 U/L (17-59) H 04/26/17 07:42 ALT 72 U/L (21-72) 04/26/17 07:42 Alkaline Phosphatase 61 U/L (38-126) 04/26/17 07:42 Troponin I 0.0170 ng/mL (0.00-0.120) 04/25/17 19:55 Total Protein 6.9 G/DL (6.3-8.2) 04/26/17 07:42 Albumin 3.8 g/dL (3.5-5.0) 04/26/17 07:42 Globulin 3.1 gm/dL (2.2-3.9) 04/26/17 07:42 Albumin/Globulin Ratio 1.2 (1.0-2.1) 04/26/17 07:42 Venous Blood Potassium 3.3 mmol/L (3.6-5.2) L 04/25/17 23:23 Urine Color Hanna (YELLOW) 04/27/17 11:43 Urine Clarity Slighty-cloudy (Clear) 04/27/17 11:43 Urine pH 6.0 (5.0-8.0) 04/27/17 11:43 Ur Specific [place] 1.029 (1.003-1.030) 04/27/17 11:43 Urine Protein 100 mg/dL (NEGATIVE) 04/27/17 11:43 Urine Glucose (UA) Neg mg/dL (Normal) 04/27/17 11:43 Urine Ketones Negative mg/dL (NEGATIVE) 04/27/17 11:43 Urine Blood Small (NEGATIVE) 04/27/17 11:43 Urine Nitrate Negative (NEGATIVE) 04/27/17 11:43 Urine Bilirubin Negative (NEGATIVE) 04/27/17 11:43 Urine Urobilinogen 4.0 mg/dL (0.2-1.0) 04/27/17 11:43 Ur Leukocyte Esterase Neg [place]man/uL (Negative) 04/27/17 11:43 Urine RBC (Auto) 4 /hpf (0-3) H 04/27/17 11:43 Urine Microscopic WBC 2 /hpf (0-5) 04/27/17 11:43 Salicylates < 1.0 mg/dl 04/25/17 19:55 Urine Opiates Screen Negative (NEGATIVE) 04/26/17 07:31 Urine Methadone Screen Negative (NEGATIVE) 04/26/17 07:31 Acetaminophen < 10.0 ug/ml (10.0-30.0) L 04/25/17 19:55 Ur Barbiturates Screen Negative (NEGATIVE) 04/26/17 07:31 Ur Phencyclidine Scrn Negative (NEGATIVE) 04/26/17 07:31 Ur Amphetamines Screen Negative (NEGATIVE) 04/26/17 07:31 U Benzodiazepines Scrn Negative (NEGATIVE) 04/26/17 07:31 U Oth Cocaine Metabols Negative (NEGATIVE) 04/26/17 07:31 U Cannabinoids Screen Negative (NEGATIVE) 04/26/17 07:31 Alcohol, Quantitative 304 mg/dl (0-10) H* 04/25/17 19:55 - Hospital Course Hospital Course: The patient is a 51 y/o man w/ pmh of systolic CHF, uncontrolled HTN, Etoh abuse , hx suicide attempt is admitted for intentional drug ingestion. The patient ingested prescribed medication with suicidal ideation in the ED. The patient was also under the influence of alcohol upon admission. The patient was maintained with 1:1 for suicidal observation. The patient was seen by psychiatry and recommend voluntary inpatient psychiatric admission. The patient was declined at first but reconsidered and decided to agree for voluntary inpatient psychiatric admission. The patient has been seen, examined , and deemed medically fit for discharge to voluntary inpatient psychiatric floor. Discharge Exam - Head Exam Head Exam: ATRAUMATIC, NORMAL INSPECTION, NORMOCEPHALIC - Eye Exam Eye Exam: Normal appearance - ENT Exam ENT Exam: Normal Exam - Respiratory Exam Respiratory Exam: Clear to PA & Lateral. absent: Rales, Rhonchi - Cardiovascular Exam Cardiovascular Exam: REGULAR RHYTHM, +S1, +S2 - GI/Abdominal Exam GI & Abdominal Exam: Normal Bowel Sounds, Soft. absent: Guarding, Rebound - Extremities Exam Extremities exam: normal inspection - Neurological Exam Neurological exam: Alert, Oriented x3 - Psychiatric Exam Psychiatric exam: Normal Affect, Normal Mood - Skin Skin Exam: Intact Discharge Plan - Follow Up Plan Condition: FAIR Disposition: DISCHARGE TO PSYCH HOSPITAL Instructions: Suicide Prevention for Adults (DC), Suicide Prevention for Adults (GEN), Hypertension (DC), Hypertension (GEN)
[2017-04-28 23:21] VITALS: BP 146/91; PULSE 68; RESP 16; TEMP 97.2; O2SAT 99
--- NOTE | 2017-04-29 00:02 | CP.PCM.PCO ---
Addendum Addendum: 04/28/17 23:58 Patient seen and examined bedside after nurse notified me about BP168/112. Pt was given Hctz 12.5 mg at 6 pm and coreg 3.125 at 9 pm Patient AAOx3 w/o withdrawal symptoms (ETOH) neither end organ damage symptoms. denies headache, dizziness, chest pain, SOB, n,v,abd pain BP rechecked: 149/94. Patient asymptomatic Plan: C/w BP medications in the morning
== END 2017-04-28 23:00 | DRG 450 ==
LOC: H.ER 17:22 → H.ERHOLD 23:40 → H.TEL 04-26 21:52 → OBSVTOIN 04-27 14:55
PROVIDERS: ADMIT Family Medicine Geriatric Medicine; ATTEND Family Medicine Geriatric Medicine
DX: T50.992A Poisoning by other drugs, medicaments and biological substances, intentional self-harm, initial encounter (principal); E78.00 Pure hypercholesterolemia, unspecified; F10.229 Alcohol dependence with intoxication, unspecified; Y90.8 Blood alcohol level of 240 mg/100 ml or more; F32.9 Major depressive disorder, single episode, unspecified; E78.5 Hyperlipidemia, unspecified; G44.209 Tension-type headache, unspecified, not intractable; Z59.0 Homelessness; F17.210 Nicotine dependence, cigarettes, uncomplicated; Z79.02 Long term (current) use of antithrombotics/antiplatelets; Z79.82 Long term (current) use of aspirin; Z91.5 Personal history of self-harm; Z86.73 Personal history of transient ischemic attack (TIA), and cerebral infarction without residual deficits; Y92.009 Unspecified place in unspecified non-institutional (private) residence as the place of occurrence of the external cause

== ENCOUNTER 2017-04-28 23:29 | Inpatient (IN) | payer MEDICAID ==
[2017-04-28 23:35] VITALS: BMI 28.8
[2017-04-29] MEDS ORDERED: Alum-Mag Hydrox-Simethicone Susp (30 mL) PO PRN (00:50)
[2017-04-29] MEDS ORDERED: DiphenhydrAMINE 50 mg/ml Inj IM PRN (00:50)
[2017-04-29] MEDS ORDERED: Magnesium Hydroxide Susp 30 ml UD PO PRN (00:50)
--- NOTE | 2017-04-29 01:00 | PCM.BM ---
<Aliya Conti - Last Filed: 04/29/17 00:58> Treatment assets and liabiliti Patient Assests: cooperative, motivated, resourceful, self-reliant, ADL independent, negotiates basic needs Patient Liabilities: financial problems, poor support system, relationship conflicts, substance abuse, medical problems - Milieu Protocol Maintain good personal hygiene: daily Encourage regular showers, other Remind patient to perform daily oral care Conduct patient checks and document Observation sheet: Q15 minutes Maintain personal safety: every shift Educate patient to report safety concerns to staff, every shift Monitor environment for contraband/sharps Medication safety: Monitor for expected outcome, potential side effects: every shift, Assess barriers to learning: every shift, Assess readiness for medication education: every shift <Diana Bautista - Last Filed: 04/30/17 13:39> Treatment assets and liabiliti Patient Assests: adapts well, cooperative, motivated, resourceful, self-reliant , ADL independent, physically healthy, negotiates basic needs, cognitively intact Patient Liabilities: financial problems, poor support system, relationship conflicts, substance abuse (patient minimizing abuse) Family Contact Family involvement: Patient does not wish Family/SO involvement Family contact: Patient declines to allow family contact at present Family contact comment: Patient reports limited family/social supports and declined to provide contact infor for family in [place] or ex-girlfriend. Child Development Instructor to continue to meet with patient through-out stabilization and encourage family involvement. - Goals for Treatment Patient goals for treatment: Patient to continue stabilization on 3NP through medication management and group/supportive therapy. Patient to be encouraged to attend groups regularly to promote self-awareness, sobriety, and improve insight , coping skills,compliance and self-esteem. Patient to be provided with referral for appropriate level of aftercare to reduce risk of future hospitalizations and ensure safety in the community Discharge/Continuing Care - Education Needs Education Needs: Patient Medication, Patient Coping Skills, Patient Community resources, Patient Aftercare Safety Plan - Discharge Discharge Criteria: Tolerates medication w/o severe side effects, Free of Suicidal thoughts, Normal sleep pattern, Ability to care for self, Reduction of target symptoms Discharge to:: Home, Penitentiary (pt. reports he will have to find stable housing upon discharge) <Bren oLmbardi - Last Filed: 05/01/17 08:38> - Diagnosis (1) Depression (emotion) Status: Acute Interventions: 05/01/17 08:38 psychotherapy, pharmacotherapy <Maxime Crenshaw - Last Filed: 05/01/17 14:42> Discharge/Continuing Care - Treatment Team Participation Patient/Family/SO Statement: 05/01/17 14:42 Pt offered no complaints and thanked the staff for taking good care of him while he was hospitalized. Was Patient/Family/SO present at Treatment Team Meeting: Yes
[2017-04-29 06:43] LABS: HDL CHOLESTEROL 52 MG/DL (30-70)
[2017-04-29 06:54] LABS: LDL CHOLESTEROL 72 mg/dL (0-129)
--- NOTE | 2017-04-29 07:56 | CP.PCM.CON ---
History of Present Illness - History of Present Illness History of Present Illness: CC: drug ingestion HPI: The patient is a 51 y/o man w/ pmh of systolic CHF, uncontrolled HTN, Etoh abuse, hx suicide attempt is admitted in psych for depression. The patient was medically optimized on Tele prior to admission to psych due to abnormal electrolytes. Patient's labs have normalized and patient agreed to voluntary admission. Patient feels better and denies suicidal ideations at this time. Patient reports mild occipital tension headache but denies current chest pain, SOB, dizziness, abdominal pain, nausea, vomiting, dysuria, hematuria, hematochezia, melena, or fever. PMD: Dr. Padilla PMH: systolic CHF, uncontrolled HTN, Etoh abuse, hx suicide attempt PSY: reports previous suicide attempt w/ prescription medication ingestion, denies treatment for depression allergies: NKDA PSH: jaw ORIF 2014 Fam: denies SOC: currently intoxicated ROS: 12 points assessed and negative unless otherwise reported in HPI Review of Systems - Review of Systems All systems: reviewed and no additional remarkable complaints except - Constitutional Constitutional: As Per HPI. absent: Fever - EENT Eyes: absent: Change in Vision - Cardiovascular Cardiovascular: absent: Chest Pain - Respiratory Respiratory: absent: Cough, Wheezing - Gastrointestinal Gastrointestinal: absent: Abdominal Pain, Diarrhea, Hematochezia, Nausea, Vomiting - Genitourinary Genitourinary: absent: Dysuria - Integumentary Integumentary: absent: Rash - Neurological Neurological: absent: Abnormal Gait, Dizziness, Numbness, Tingling - Psychiatric Psychiatric: absent: Homicidal Ideation, Suicidal Ideation Past Patient History - Infectious Disease Hx of Infectious Diseases: None - Past Medical History & Family History Past Medical History?: Yes - Past Social History Smoking Status: Light Smoker < 10 Cigarettes Daily - CARDIAC Hx Cardiac Disorders: Yes Hx Hypercholesterolemia: Yes Hx Hypertension: Yes - PULMONARY Hx Respiratory Disorders: No - NEUROLOGICAL Hx Transient Ischemic Attacks (TIA): Yes - HEENT Hx HEENT Problems: No - RENAL Hx Chronic Kidney Disease: No - ENDOCRINE/METABOLIC Hx Endocrine Disorders: No - HEMATOLOGICAL/ONCOLOGICAL Hx Human Immunodeficiency Virus (HIV): No - INTEGUMENTARY Hx Dermatological Problems: No - MUSCULOSKELETAL/RHEUMATOLOGICAL Hx Falls: No - GASTROINTESTINAL Hx Gastrointestinal Disorders: No - GENITOURINARY/GYNECOLOGICAL Hx Genitourinary Disorders: No - PSYCHIATRIC Hx Substance Use: Yes - SURGICAL HISTORY Hx Surgeries: No - ANESTHESIA Hx Anesthesia: No Meds Allergies/Adverse Reactions: Allergies Allergy/AdvReac Type Severity Reaction Status Date / Time No Known Allergies Allergy Verified 04/04/17 18:00 - Medications Medications: Current Medications Acetaminophen (Tylenol 325mg Tab) 650 mg PO Q6 PRN PRN Reason: Pain, Mild (1-3) Al Hydrox/Mg Hydrox/Simethicone (Maalox Plus 30 Ml) 30 ml PO Q4 PRN PRN Reason: Dyspepsia Amlodipine Besylate (Norvasc) 10 mg PO DAILY [facility] Aspirin (Aspirin Chewable) 81 mg PO DAILY [facility] Atorvastatin Calcium (Lipitor) 20 mg PO DAILY [facility] Carvedilol (Coreg) 3.125 mg PO Q12H [facility] Diphenhydramine HCl (Benadryl) 50 mg IM Q6 PRN PRN Reason: Extrapyramidal S/S Unable PO Diphenhydramine HCl (Benadryl) 50 mg PO Q6 PRN PRN Reason: Extrapyramidal Symptoms Diphenhydramine HCl (Benadryl) 50 mg PO HS PRN PRN Reason: Sleep Enoxaparin Sodium (Lovenox) 40 mg SC DAILY [facility] PRN Reason: Protocol Haloperidol (Haldol) 5 mg PO Q4 PRN PRN Reason: Agitation Haloperidol Lactate (Haldol) 5 mg IM Q4 PRN PRN Reason: Agitation, Unable to Take PO Hydrochlorothiazide (Hydrodiuril) 25 mg PO DAILY [facility] Lisinopril (Zestril) 40 mg PO DAILY [facility] Lorazepam (Ativan) 2 mg IM Q4 PRN PRN Reason: Anxiety/Agitation,Unable PO Lorazepam (Ativan) 2 mg PO Q4 PRN PRN Reason: Anxiety/Agitation Magnesium Hydroxide (Milk Of Magnesia) 30 ml PO HS PRN PRN Reason: Constipation Nicotine (Nicoderm Cq) 1 patch TD DAILY [facility] Physical Exam - Constitutional Appears: No Acute Distress - Head Exam Head Exam: ATRAUMATIC, NORMAL INSPECTION, NORMOCEPHALIC - Eye Exam Eye Exam: Normal appearance - ENT Exam ENT Exam: Mucous Membranes Moist - Neck Exam Neck exam: Positive for: Full Rom. Negative for: Tenderness - Respiratory Exam Respiratory Exam: Clear to Auscultation Bilateral, NORMAL BREATHING PATTERN. absent: Decreased Breath Sounds, Rales, Rhonchi, Wheezes, Respiratory Distress - Cardiovascular Exam Cardiovascular Exam: REGULAR RHYTHM. absent: Tachycardia - GI/Abdominal Exam GI & Abdominal Exam: Normal Bowel Sounds, Soft. absent: Distended, Tenderness - Extremities Exam Extremities exam: Positive for: normal inspection. Negative for: calf tenderness, pedal edema, tenderness - Neurological Exam Neurological exam: Alert, Normal Gait, Oriented x3 - Psychiatric Exam Psychiatric exam: Normal Affect, Normal Mood - Skin Skin Exam: Dry, Intact, Normal Color, Warm Results - Vital Signs Recent Vital Signs: Last Vital Signs Temp 97.8 F 04/29/17 00:22 Pulse 61 04/29/17 00:22 Resp 16 04/29/17 00:22 BP 149/99 H 04/29/17 00:22 Pulse Ox - Labs Labs: Laboratory Results - last 24 hr 04/29/17 05:40 Triglycerides 100 D Cholesterol 148 LDL Cholesterol Direct 72 HDL Cholesterol 52 Assessment & Plan - Assessment and Plan (Free Text) Assessment: The patient is a 51 y/o man w/ pmh of systolic CHF, uncontrolled HTN, Etoh abuse , hx suicide attempt is admitted in psych for depression Plan: Depression - voluntary admission to psych - managed by psychiatrist - monitor for acute changes Alcohol abuse - patient reports drinking heavily - denies withdrawal and DTs in the past - patient continues to deny withdrawal symptoms at this time - monitor for acute changes HTN - uncontrolled - on carvedilol 3.125 mg PO BID, lisinopril 40 mg PO daily, norvasc 10 mg PO daily - increased HCTZ to 25 mg PO daily for better BP control - monitor for acute changes Preserved Ejection Fraction CHF - last echo 06/18/2016: LV normal size, function, EF 65-70% - hold lasix 20 mg PO BID Prophylactic Measures - lovenox 40 mg SC daily
--- NOTE | 2017-04-29 14:14 | PCM.PSYCH ---
Initial Psychiatric Evaluation - Initial Psychiatric Evaluation Type of Admission: Voluntary Legal Status: Capacity Chief Complaint (in patient's own words): I had a lot of problems with my Patient's Reaction to Hospitalization: pt requested help History of Present Illness and Precipitating Events: This is a 51 yr old male with h/o cardiac issues,HTN and h/o alcohol abuse originally brought by EMS for chest pain , while in ER staff witnessed pt ingesting unknown amount of pills from bottle.pt has reported consuming increasing amounts of alcohol as he was depressed because of the conflict he has with his alcohol level on admission was 304 upon pt reported that that he made a suicidal attempt a month ago but did not go for psychiatric treatment and this time he was very angry with himself and impulsively overdose on his blood pressure pills in front of the ER staff pt currently reports depressed mood anhedonia denied any current s/h I no changes in sleep or appetite. Current Medications: Active Medications Generic Name Dose Route Start Last Admin Trade Name Freq PRN Reason Stop Dose Admin Acetaminophen 650 mg 04/29/17 00:14 Tylenol 325mg Tab PO Q6 PRN Pain, Mild (1-3) Al Hydrox/Mg Hydrox/Simethicone 30 ml 04/29/17 00:50 Maalox Plus 30 Ml PO Q4 PRN Dyspepsia Amlodipine Besylate 10 mg 04/29/17 09:00 04/29/17 09:17 Norvasc PO 10 mg DAILY [facility] Administration Aspirin 81 mg 04/29/17 09:00 04/29/17 09:15 Aspirin Chewable PO 81 mg DAILY [facility] Administration Atorvastatin Calcium 20 mg 04/29/17 09:00 04/29/17 09:17 Lipitor PO 20 mg DAILY [facility] Administration Carvedilol 3.125 mg 04/29/17 09:00 04/29/17 09:14 Coreg PO 3.125 mg Q12H [facility] Administration Diphenhydramine HCl 50 mg 04/29/17 00:50 Benadryl IM Q6 PRN Extrapyramidal S/S Unable PO Diphenhydramine HCl 50 mg 04/29/17 00:50 Benadryl PO Q6 PRN Extrapyramidal Symptoms Diphenhydramine HCl 50 mg 04/29/17 00:53 Benadryl PO HS PRN Sleep Enoxaparin Sodium 40 mg 04/29/17 09:00 Lovenox SC DAILY [facility] Protocol Escitalopram Oxalate 5 mg 04/29/17 13:26 Lexapro PO DAILY [facility] Haloperidol 5 mg 04/29/17 00:50 Haldol PO Q4 PRN Agitation Haloperidol Lactate 5 mg 04/29/17 00:50 Haldol IM Q4 PRN Agitation, Unable to Take PO Hydrochlorothiazide 25 mg 04/29/17 09:00 04/29/17 09:14 Hydrodiuril PO 25 mg DAILY [facility] Administration Lisinopril 40 mg 04/29/17 09:00 04/29/17 09:16 Zestril PO 40 mg DAILY [facility] Administration Lorazepam 2 mg 04/29/17 00:50 Ativan IM Q4 PRN Anxiety/Agitation,Unable PO Lorazepam 1 mg 04/29/17 13:30 Ativan PO TID PRN Anxiety Magnesium Hydroxide 30 ml 04/29/17 00:50 Milk Of Magnesia PO HS PRN Constipation Nicotine 1 patch 04/29/17 09:00 04/29/17 09:16 Nicoderm Cq TD 1 patch DAILY [facility] Administration Past Psychiatric History - Past Psychiatric History Previous Treatment History: Inpatient Prior Psychiatric Treatment: PT DENIED History of ETOH/Drug Use: PT REPORTED STARTED USING ALCOHOL RECENTLY DUE TO CONFLICT WITH NO HX OF PREVIOUS REHAB Pertinent Medical Hx (Current Medical&Sleep Prob, Allergies): Allergies Allergy/AdvReac Type Severity Reaction Status Date / Time No Known Allergies Allergy Verified 04/04/17 18:00 Lisinopril [Zestril] 40 mg PO DAILY #30 tab 06/19/16 amLODIPine [Norvasc] 10 mg PO DAILY #30 tab 06/19/16 Aspirin [[place] Aspirin] 81 mg PO DAILY #90 tab.chew 06/24/16 Clopidogrel [Plavix] 75 mg PO DAILY #30 tab 06/24/16 Atorvastatin [Lipitor] 20 mg PO DAILY 11/28/16 Carvedilol [Coreg] 3.125 mg PO Q12H 11/28/16 Multivit-Minerals/Folic Acid [Centrum Multigummies] 1 tab PO DAILY 11/28/16 Furosemide [Lasix] 20 mg PO DAILY 04/26/17 Potassium Chloride [K-Tab ER] 20 meq PO DAILY 04/26/17 Mental Status Examination - Personal Presentation Personal Presentation: Looks stated age - Affect Affect: Depressed - Motor Activity Motor Activity: Calm - Reliability in Providing Information Reliability in Providing Information: Poor, due to altered mood - Speech Speech: Organized - Mood Mood: Depressed, Anxious - Formal Thought Process Formal Thought Process: Circumstantial - Hallucinations/Delusions Additional comments: PT DENIED ANY CURRENT PSYCHOTIC SYMPTOMS, NON ELICITED - Obsessions/Compulsions Obsessions: No Compulsions: No - Cognitive Functions Orientation: Person, Place Sensorium: Alert Attention/Concentration: Attentive Estimate of Intelligence: Average - Risk Risk: Diminished functioning - Strength & Assets Inventory Strength & Assets Inventory: Life experience - Limitations Additional comments: HOMELESS, UNEMPLOYED DSM 5 DX - DSM 5 DSM 5 Diagnosis: ALCOHOL INDUCED MOOD DISORDER WITH DEPRESSIVE FEATURES ALCOHOL USE DISORDER DEPRESSION - Recommended/Plan of Treatment Treatment Recommendations and Plan of Treatment: START LEXAPRO 5MG DAILY [facility] GROUP THERAPY
[2017-04-29] MEDS: Enoxaparin 40 mg Syringe SC SCH (18:52)
[2017-04-30] MEDS: Enoxaparin 40 mg Syringe SC SCH (10:00)
--- NOTE | 2017-04-30 10:57 | PCM.PYCHPN ---
Psychiatric Progress Note - Psychiatric Progress Note Patient seen today, length of contact: pt evaluated discussed with team chart reviewed Patient Chief Complaint: I need help with getting welfare Problems Identified/Issues Discussed: pt seen on the unit calm cooperative, presenting with brighter mood and affect, stated feeling better with lexapro, denied any current suicidal or homicidal ideations, requesting addiction social worker to assist him in welfare application DSM 5 Symptoms Update: alcohol induced mood disorder with depressive features alcohol use disorder Medication Change: No Medical Record Reviewed: Yes Mental Status Examination - Cognitive Function Orientation: Person, Place Attention: WNL Concentration: WNL Association: WNL Fund of Knowledge: [facility] Decription of patient's judgement and insights: partial insight , poor judgment - Mood Mood: Depressed, Anxious, Neutral - Affect Affect: Constricted - Speech Speech: Appropriate - Formal Thought Process Formal Thought Process: Circumstantial Psychotic Thoughts and Behaviors: pt denied any current psychotic symptoms - Suicidal Ideation Suicidal Ideation: No - Homicidal Ideation Homicidal Ideation: No Goal/Treatment Plan - Goal/Treatment Plan Need for Continued Stay: Severe depression anxiety, Discharge may exacerbated symptoms Progress Toward Problem(s) and Goals/Treatment Plan: continue with lexapro motivational and group therapy addiction social worker to arrange for discharge plan Estimated Date of D/C: 05/01/17
--- NOTE | 2017-05-01 07:37 | CP.PCM.PN ---
<Gaetano Randhawa - Last Filed: 05/01/17 15:36> Subjective - Date & Time of Evaluation Date of Evaluation: 05/01/17 Time of Evaluation: 07:25 - Subjective Subjective: Patient seen and examined bedside this morning. There are no acute events overnight, NAD. The patient is feeling much improved and denies suicidal/ homicidal ideation. The patient denies headaches, dizziness, chest pain, SOB, abdominal pain, nausea, vomiting, diarrhea, dysuria, or fever. Objective - Vital Signs/Intake and Output Vital Signs (last 24 hours): Temp Pulse Resp BP Pulse Ox 86.8 F L 74 20 147/89 04/30/17 16:31 04/30/17 21:16 04/30/17 16:31 04/30/17 21:16 - Medications Medications: Current Medications Acetaminophen (Tylenol 325mg Tab) 650 mg PO Q6 PRN PRN Reason: Pain, Mild (1-3) Al Hydrox/Mg Hydrox/Simethicone (Maalox Plus 30 Ml) 30 ml PO Q4 PRN PRN Reason: Dyspepsia Amlodipine Besylate (Norvasc) 10 mg PO DAILY [facility] Last Admin: 04/30/17 08:32 Dose: 10 mg Aspirin (Aspirin Chewable) 81 mg PO DAILY [facility] Last Admin: 04/30/17 08:32 Dose: 81 mg Atorvastatin Calcium (Lipitor) 20 mg PO DAILY [facility] Last Admin: 04/30/17 08:32 Dose: 20 mg Carvedilol (Coreg) 3.125 mg PO Q12H [facility] Last Admin: 04/30/17 21:16 Dose: 3.125 mg Diphenhydramine HCl (Benadryl) 50 mg IM Q6 PRN PRN Reason: Extrapyramidal S/S Unable PO Diphenhydramine HCl (Benadryl) 50 mg PO Q6 PRN PRN Reason: Extrapyramidal Symptoms Diphenhydramine HCl (Benadryl) 50 mg PO HS PRN PRN Reason: Sleep Enoxaparin Sodium (Lovenox) 40 mg SC DAILY [facility] PRN Reason: Protocol Last Admin: 04/30/17 10:00 Dose: Not Given Escitalopram Oxalate (Lexapro) 5 mg PO DAILY [facility] Last Admin: 04/30/17 08:31 Dose: 5 mg Haloperidol (Haldol) 5 mg PO Q4 PRN PRN Reason: Agitation Haloperidol Lactate (Haldol) 5 mg IM Q4 PRN PRN Reason: Agitation, Unable to Take PO Hydrochlorothiazide (Hydrodiuril) 25 mg PO DAILY [facility] Last Admin: 04/30/17 08:32 Dose: 25 mg Lisinopril (Zestril) 40 mg PO DAILY [facility] Last Admin: 04/30/17 08:34 Dose: 40 mg Lorazepam (Ativan) 2 mg IM Q4 PRN PRN Reason: Anxiety/Agitation,Unable PO Lorazepam (Ativan) 1 mg PO TID PRN PRN Reason: Anxiety Magnesium Hydroxide (Milk Of Magnesia) 30 ml PO HS PRN PRN Reason: Constipation Nicotine (Nicoderm Cq) 1 patch TD DAILY [facility] Last Admin: 04/30/17 08:32 Dose: 1 patch - Constitutional Appears: No Acute Distress - Head Exam Head Exam: ATRAUMATIC, NORMAL INSPECTION, NORMOCEPHALIC - Eye Exam Eye Exam: Normal appearance - ENT Exam ENT Exam: Mucous Membranes Moist - Respiratory Exam Respiratory Exam: Clear to Ausculation Bilateral, NORMAL BREATHING PATTERN. absent: Decreased Breath Sounds, Rales, Rhonchi, Wheezes, Respiratory Distress - Cardiovascular Exam Cardiovascular Exam: REGULAR RHYTHM, RRR. absent: Tachycardia - GI/Abdominal Exam GI & Abdominal Exam: Soft, Normal Bowel Sounds. absent: Distended, Tenderness - Extremities Exam Extremities Exam: Normal Inspection. absent: Calf Tenderness, Pedal Edema, Tenderness - Neurological Exam Neurological Exam: Alert, Awake, Normal Gait, Oriented x3 - Psychiatric Exam Psychiatric exam: absent: Homicidal Ideation, Suicidal Ideation - Skin Skin Exam: Dry, Intact, Normal Color, Warm Assessment and Plan - Assessment and Plan (Free Text) Assessment: The patient is a 51 y/o man w/ pmh of systolic CHF, uncontrolled HTN, Etoh abuse , hx suicide attempt is admitted in psych for depression Plan: Depression - voluntary admission to psych - managed by psychiatrist - monitor for acute changes Alcohol abuse - patient reports drinking heavily - denies withdrawal and DTs in the past - patient continues to deny withdrawal symptoms at this time - monitor for acute changes - f/u CBC, BMP HTN - uncontrolled - on carvedilol 3.125 mg PO BID, lisinopril 40 mg PO daily, norvasc 10 mg PO daily - increased HCTZ to 25 mg PO daily for better BP control - monitor for acute changes Preserved Ejection Fraction CHF - last echo 06/18/2016: LV normal size, function, EF 65-70% - hold lasix 20 mg PO BID Prophylactic Measures - lovenox 40 mg SC daily <Vaishali Franks - Last Filed: 05/02/17 09:38> Subjective - Subjective Subjective: ATTENDING NOTE - ATTESTATION CASE DISCUSSED WITH RESIDENT. CHART REVIEWED. AGREE WITH PLAN. Objective - Vital Signs/Intake and Output Vital Signs (last 24 hours): Temp Pulse Resp BP Pulse Ox 97.7 F 75 18 125/85 05/01/17 10:00 05/01/17 10:00 05/01/17 10:00 05/01/17 10:00 - Labs Labs: 05/01/17 10:40 05/01/17 10:40
[2017-05-01 08:36] VITALS: RESP 18; TEMP 97.7
--- NOTE | 2017-05-01 09:31 | PCM.PYCHDC ---
Mental Status Examination - Mental Status Examination Orientation: Person, Place, Situation, Time Memory: Intact Mood: Neutral Speech: Appropriate Attention: WNL Concentration: WNL Association: WNL Fund of Knowledge: WNL Formal Thought Process: No Impairment Description of patient's judgement and insight: partial insight , poor judgment Psychotic Thoughts and Behaviors: pt denied any current psychotic symptoms Suicidal Ideation: No Current Homicidal Ideation?: No Discharge Summary - Discharge Note Reason for Hospitalization: pt requested help This is a 51 yr old male with h/o cardiac issues,HTN and h/o alcohol abuse originally brought by EMS for chest pain , while in ER staff witnessed pt ingesting unknown amount of pills from bottle.pt has reported consuming increasing amounts of alcohol as he was depressed because of the conflict he has with his alcohol level on admission was 304 upon pt reported that that he made a suicidal attempt a month ago but did not go for psychiatric treatment and this time he was very angry with himself and impulsively overdose on his blood pressure pills in front of the ER staff pt currently reports depressed mood anhedonia denied any current s/h I no changes in sleep or appetite. Consultations:: List each consultation separately and include: 1. Reason for request. 2. Findings. 3. Follow-up Summary of Hospital Course include:: 1. Description of specific treatment plan utilized for patients during their course of treatmen. 2. Summarize the time- course for resolution of acute symptoms and/or regressed behaviors. 3. Describe issues identified and worked on during hospitalization. 4. Describe medication utilized. 5. Describe medical problems identified and treated. 6. Reassessment of suicide risk Summary of Hospital Course: pt on admission was started on lexapro 5mg for depressed mood group and supportive therapy provided pt was compliant with medicationsattended groups on discharge, mental status was stable, pt denied suicidal or homicidal ideations denied perceptual disturbances pt was not danger to self or others motivational therapy provided for alcohol use pt educated about risk of relapse and the negative impact of alcohol on his health - Diagnosis (1) Depression (emotion) Current Visit: Yes Status: Acute - Final Diagnosis (DSM 5) Condition upon Discharge: GOOD Disposition: HOME/ ROUTINE Follow-up Treatment Plan: continue with lexapro motivational and group therapy manager social services to arrange for discharge plan Prescriptions/Medication Reconciliation: Escitalopram [Lexapro] 5 mg PO DAILY 30 Days #30 tab - Antipsychotic Medications Pt discharged on 2 or more routine antipsychotic medications: No
[2017-05-01 11:32] LABS: HEMOGLOBIN 13.2 g/dL (12.0-18.0); MEAN CELL VOLUME 91.7 fl (80.0-94.0); MEAN CORPUSCULAR HEMOGLOBIN 30.4 pg (27.0-31.0); MEAN CORPUSCULAR HGB CONC 33.1 g/dL (33.0-37.0); RBC 4.35 Mil/uL (4.40-5.90); RED CELL DISTRIBUTION WIDTH 14.1 % (11.5-14.5)
[2017-05-01 12:05] LABS: BLOOD UREA NITROGEN 16 mg/dl (9-20); GFR AFRICAN-AMERICAN > 60; GFR NON-AFRICAN AMERICAN > 60
[2017-05-01 14:51] VITALS: BP 125/85; PULSE 75
== END 2017-05-01 15:03 | disposition home or self-care (01) | DRG 750 ==
LOC: H.PSYCH 23:35
PROVIDERS: ADMIT Psychiatry & Neurology Psychiatry; ATTEND Psychiatry & Neurology Psychiatry
PROC: HZ52ZZZ Individual Psychotherapy for Substance Abuse Treatment, Cognitive-Behavioral (ICD-10-PCS; principal; 2017-04-28)
PROC: GZHZZZZ Group Psychotherapy (ICD-10-PCS; 2017-04-28)
PROC: GZ58ZZZ Individual Psychotherapy, Cognitive-Behavioral (ICD-10-PCS; 2017-04-28)
DX: F10.14 Alcohol abuse with alcohol-induced mood disorder (principal); I50.22 Chronic systolic (congestive) heart failure; I11.0 Hypertensive heart disease with heart failure; F32.9 Major depressive disorder, single episode, unspecified; E78.00 Pure hypercholesterolemia, unspecified; F17.210 Nicotine dependence, cigarettes, uncomplicated; Z86.73 Personal history of transient ischemic attack (TIA), and cerebral infarction without residual deficits; Z91.5 Personal history of self-harm

== ENCOUNTER 2017-05-11 19:03 | Inpatient (IN) | payer MEDICAID ==
[2017-05-11] MEDS ORDERED: Sodium Chloride 0.9% 1,000 ML IV STA (19:19)
[2017-05-11] MEDS ORDERED: Tdap Vaccine 0.5 ml Vial (10-64 yrs) IM ONE (19:19)
[2017-05-11] MEDS ORDERED: Morphine 4 MG/ML VIAL ONE (19:24)
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
[2017-05-11 20:42] LABS: BASO # 0.1 K/uL (0.0-0.2); BASO % 1.1 % (0.0-2.0); EOS % 0.5 % (0.0-4.0); HEMOGLOBIN 11.4 g/dL (12.0-18.0); LYMPH % 10.8 % (20.0-40.0); MEAN CELL VOLUME 90.7 fl (80.0-94.0); MEAN CORPUSCULAR HEMOGLOBIN 29.3 pg (27.0-31.0); MEAN CORPUSCULAR HGB CONC 32.3 g/dL (33.0-37.0); MEAN PLATELET VOLUME 6.9 fl (7.2-11.7); MONO # 0.5 K/uL (0.0-0.8); NEUT # 7.3 K/uL (1.8-7.0); NEUT % 81.6 % (50.0-75.0); RBC 3.89 Mil/uL (4.40-5.90); RED CELL DISTRIBUTION WIDTH 14.6 % (11.5-14.5); WHITE BLOOD COUNT 8.9 K/uL (4.8-10.8)
[2017-05-11 20:59] LABS: ALB/GLOB RATIO 1.4 (1.0-2.1); ALBUMIN 4.4 g/dL (3.5-5.0); ALT/SGPT 94 U/L (21-72); AST/SGOT 186 U/L (17-59); BLOOD UREA NITROGEN 15 mg/dl (9-20); CALCIUM 8.7 mg/dL (8.4-10.2); GFR AFRICAN-AMERICAN > 60; GFR NON-AFRICAN AMERICAN > 60
[2017-05-11 21:06] LABS: PARTIAL THROMBOPLASTIN TIME 24.4 Seconds (25.6-37.1); PROTHROMBIN TIME 10.7 Seconds (9.8-13.1)
[2017-05-11] MEDS ORDERED: Lidocaine 1% Inj (20ml) IJ ONE (21:06)
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
[2017-05-11] MEDS ORDERED: Povidone Iodine Topical 10% Sol ONE (21:12)
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
[2017-05-11] MEDS ORDERED: Propofol 10 mg/ml 0 MG/0 ML VIAL ONE (21:25)
[2017-05-11] MEDS ORDERED: Propofol 10 mg/ml Inj (20 ML) ONE (21:28)
[2017-05-11] MEDS ORDERED: Propofol 10 mg/ml Inj (20 ML) IV PRN (22:17)
[2017-05-11] MEDS ORDERED: Propofol 10 mg/ml Inj (20 ML) IV ONE (22:30)
[2017-05-11] MEDS ORDERED: Multivitamin (MVI) 10 ML, Folic Acid 1 MG, Thiamine 100 MG in Dextrose 5%/0.45% NS 1,00... IV ONE (22:56)
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
[2017-05-12] MEDS ORDERED: Polymyxin/Trimethoprim Ophth Soln OS SCH ×2 (01:00→09:00)
[2017-05-12] MEDS: ceFAZolin 2 GM in Sodium Chloride 0.9% 100 ML IVPB SCH ×3 (01:49→17:00)
[2017-05-12] MEDS ORDERED: Morphine 4 MG/ML VIAL ONE (02:04)
[2017-05-12 02:30] LABS: SQUAMOUS EPITHIAL 1 /hpf (0-5); URINE BILIRUBIN NEGATIVE (NEGATIVE); URINE BLOOD MODERATE (NEGATIVE); URINE CLARITY CLEAR (Clear); URINE COLOR YELLOW (YELLOW); URINE GLUCOSE (UA) NEG (Normal); URINE LEUKOCYTE ESTERASE NEG Leu/uL (Negative); URINE NITRATE NEGATIVE (NEGATIVE); URINE PROTEIN 100 mg/dL (NEGATIVE); URINE UROBILINOGEN 0.2-1.0 mg/dL (0.2-1.0)
[2017-05-12 05:52] LABS: BARBITURATES, UR NEGATIVE (NEGATIVE); BENZODIAZEPINES, UR NEGATIVE (NEGATIVE); OPIATES, UR POSITIVE (NEGATIVE); PHENCYCLIDINE, UR NEGATIVE (NEGATIVE)
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
--- NOTE | 2017-05-12 09:25 | RAD ---
PROCEDURE: CHEST RADIOGRAPH, 1 VIEW HISTORY: clearance COMPARISON: Chest radiograph dated 04/25/2017 FINDINGS: LUNGS: Clear. PLEURA: No pneumothorax or pleural fluid seen. CARDIOVASCULAR: Cardiomediastinal silhouette stably enlarged. OSSEOUS STRUCTURES: Unchanged. VISUALIZED UPPER ABDOMEN: Normal. OTHER FINDINGS: None. IMPRESSION: No active disease.
--- NOTE | 2017-05-12 09:30 | RAD ---
PROCEDURE: Right Ankle Radiographs. HISTORY: ankle reduction COMPARISON: None FINDINGS: There has been interval closed reduction of the previously described comminuted, displaced distal fibular fracture. Osseous components are seen with improved anatomic alignment, but still demonstrated mild persistent angulation/displacement. The ankle mortise has been reduced. No new fracture or other significant interval change is identified. IMPRESSION: Interval closed reduction of the comminuted distal fibular fracture as described above.
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
[2017-05-12 11:38] VITALS: BMI 28.7
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
[2017-05-12] MEDS: Dexamethasone/Tobramycin Ophth Susp OS SCH ×3 (12:42→21:10)
[2017-05-12] MEDS: Potassium Ch 20mEq in D5-1/2NS 1,000 ML IV SCH ×2 (13:14→22:00)
[2017-05-12] MEDS ORDERED: Morphine 4 MG/ML VIAL IVP PRN ×2 (14:12)
[2017-05-13] MEDS: Dexamethasone/Tobramycin Ophth Susp OS SCH ×6 (00:19→22:23)
[2017-05-13] MEDS: ceFAZolin 2 GM in Sodium Chloride 0.9% 100 ML IVPB SCH ×4 (00:20→17:55)
--- NOTE | 2017-05-13 03:01 | CARD ---
APPROVED REPORT EKG Measurement Heart [id number] OR [id number] <Conclusion> Normal sinus rhythm Nonspecific T wave abnormality Abnormal ECG
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
[2017-05-13] MEDS ORDERED: Lidocaine 1% Inj (20ml) ONE (16:47)
[2017-05-13] MEDS ORDERED: Bupivacaine 0.5% Inj(30mL) ONE ×2 (16:47→17:18)
[2017-05-13] MEDS ORDERED: Neostigmine Methylsulfate 3mg/3ml Syringe IV ONE (17:17)
[2017-05-13] MEDS ORDERED: Phenylephrine 10 mg/ml Inj ONE (17:18)
[2017-05-13] MEDS ORDERED: Rocuronium 10 mg/ml (5 ml) ONE ×2 (17:20→19:05)
[2017-05-13] MEDS ORDERED: Propofol 10 mg/ml Inj (20 ML) ONE (17:20)
[2017-05-13] MEDS ORDERED: Succinylcholine 200 mg/10 ml Inj IV ONE (17:20)
[2017-05-13] MEDS ORDERED: Lidocaine 4% (Laryng-O-Jet) Kit MM ONE (17:23)
[2017-05-13] MEDS ORDERED: Lactated Ringer's 1,000 ML IV ONE ×2 (17:35→20:00)
[2017-05-13] MEDS ORDERED: Midazolam 2 MG/2 ML VIAL ONE (17:39)
[2017-05-13] MEDS ORDERED: Dexamethasone 4 mg/1 ml ONE (18:08)
[2017-05-13] MEDS ORDERED: ePHEDrine 50 mg/ml Inj ONE (18:51)
[2017-05-13] MEDS ORDERED: Povidone Iodine Topical 10% Sol TOP ONE (20:54)
--- NOTE | 2017-05-13 21:11 | PCM.SURG1 ---
Surgeon's Initial Post Op Note - Surgeon's Notes Surgeon: Dr. Ger Waldrop DPM [facility] Activities Clerk: Dr. Bandar Thorpe PGY-3, Dr. Maxim Dee PGY-3, Dr. Elise Yousif PGY-2 Type of Anesthesia: General LMA Anesthesia Administered By: Dr. Sulaiman CURRIE Pre-Operative Diagnosis: Right ankle ORIF Operative Findings: See dictation. M: in material sheet/dictation. I: none Post-Operative Diagnosis: Same Operation Performed: Right ankle open reduction internal fixation Specimen/Specimens Removed: None Estimated Blood Loss: EBL {In ML}: 75 Blood Products Given: N/A Drains Used: No Drains Post-Op Condition: Good Date of Surgery/Procedure: 05/13/17 Time of Surgery/Procedure: 21:10
[2017-05-13] MEDS ORDERED: Lactated Ringer's 1,000 ML IV SCH (21:30)
--- NOTE | 2017-05-13 21:31 | PCM.ANESB3 ---
Femoral Nerve Block - Femoral Nerve Block Date of Procedure: 05/13/17 Anesthesiologist: Sulaiman Pre-Procedure Diagnosis: Right ankle fracture Post-Procedure Diagnosis: Same Procedure Performed: Femoral Nerve Block Right - Procedure Femoral Nerve Block: The procedure was explained to the patient that it is for the post-operative pain management. Consent was obtained after a thorough discussion with the patient regarding the benefits and possible complications of local anesthetic block of the femoral nerve at the inguinal crease area. The patient was brought to the operating room and standard monitors were applied. Time-out was held with the circulating nurse to confirm the correct surgery and the appropriate block. Under general anesthesia, patient was placed in supine position with fully extended lower extremities and the ___right groin exposed. The femoral artery was then carefully palpated. The ultrasound transducer was then applied to this area in the transverse plane and the femoral nerve was visualized lateral to the femoral artery and underneath the fascia iliaca. After thorough identification, the inguinal crease area was prepped with Chloraprep. At this point, a #22 gauge Stimuplex 4-inch needle was inserted immediately lateral to the femoral artery pulse at the inguinal crease and advanced perpendicularly. The needle was inserted to the ultrasound transducer in-plane towards the femoral nerve in a [id number] direction. Needle advancement was performed carefully under direct ultrasound visualization. Nerve stimulator was used and twitch of the quadriceps muscle was obtained at current of __0.4___ MA. After negative aspiration, __2___cc of __0.5___% __bupivicaine with 1:200, 000 epinephrine was injected and this was followed with ___13_ __ cc of __0.5 % bupivicaine with 1:200,000 epinephrine . Under ultrasound guidance the local anesthetics were observed spreading below fascia iliaca and around the femoral nerve. The needle was removed intact. The patient tolerated the femoral nerve block well with stable vital signs and was prepared for subsequent surgery.
--- NOTE | 2017-05-13 21:34 | PCM.ANESB2 ---
Popliteal Nerve Block - Popliteal Nerve Block Date of Procedure: 05/13/17 Anesthesiologist: Sulaiman Pre-Procedure Diagnosis: Right Ankle Fracture Post-Procedure Diagnosis: Same Procedure Performed: Popliteal Nerve Block Right - Procedure Popliteal Nerve Block: This procedure was explained to the patient that it is for post-operative pain management. Consent was obtained after a thorough discussion with the patient regarding the benefits and possible complications of local anesthetic block of the sciatic nerve at the popliteal level. The patient was brought to the operating room and standard monitors are applied. Time-out was held with the circulating nurse to confirm the correct surgery and the appropriate block. Under general anesthesia, patient's operative leg was gently raised and supported and the groove in between the biceps femoris and vastus lateralis muscles was carefully palpated. The skin approximately 8cm above the popliteal crease was then marked. The ultrasound transducer was then applied to the posterior thigh approximately 8cm above the popliteal crease in the transverse plane and the sciatic nerve before its division was visualized lateral to the popliteal artery and in between the bicep femoris and semimembranosus/ semitendinosus muscles. After identification, the lateral portion of the thigh was prepped with Chloraprep. At this point, a # 21 gauge Stimuplex insulated 4 inch needle was inserted into pre-marked area and advanced in a perpendicular direction. The needle was inserted above the ultrasound transducer in-plane towards the sciatic nerve in a [id number] direction. Needle advancement was performed carefully under direct ultrasound visualization. Nerve stimulator was used and dorsiflexion of the __right___ foot was elicited at a current of __0.4___ MA. After repeated negative aspiration, __2___cc of _0.5____ % ___bupivicaine with 1:200,000 epinephrine was injected and this was flowed with ___18___ cc of __ 0.5____% ____bupivicaine with 1:200,000 epinephrine . Under ultrasound guidance the local anesthetics were observed surrounding sciatic nerve . The needle was removed intact. The patient tolerated the popliteal nerve block well with stable vital signs and was subsequently prepared for the surgery.
[2017-05-13 22:18] LABS: URINE BILIRUBIN NEGATIVE (NEGATIVE); URINE BLOOD SMALL (NEGATIVE); URINE CLARITY CLEAR (Clear); URINE COLOR YELLOW (YELLOW); URINE GLUCOSE (UA) NEG (Normal); URINE LEUKOCYTE ESTERASE NEG Leu/uL (Negative); URINE NITRATE NEGATIVE (NEGATIVE); URINE PROTEIN 30 mg/dL (NEGATIVE); URINE UROBILINOGEN 0.2-1.0 mg/dL (0.2-1.0)
[2017-05-13 22:24] VITALS: RESP 18
[2017-05-14] MEDS: Dexamethasone/Tobramycin Ophth Susp OS SCH ×4 (00:45→12:59)
--- NOTE | 2017-05-14 03:53 | CP.PCM.PN ---
Subjective - Date & Time of Evaluation Date of Evaluation: 05/13/17 Time of Evaluation: 23:00 - Subjective Subjective: Patient seen POD 0 s/p right ankle ORIF. Patient tolerated the procedure well. No drains placed. Pain is well controlled. Patient denies any chest pain, nausea , vomiting, or SOB. Encouraged patient to use incentive spirometry. Objective - Vital Signs/Intake and Output Vital Signs (last 24 hours): Temp Pulse Resp BP Pulse Ox 98.4 F 79 18 143/87 94 L 05/14/17 00:30 05/14/17 00:30 05/14/17 00:30 05/14/17 00:30 05/14/17 00:30 Intake and Output: 05/13/17 05/14/17 18:59 06:59 Intake Total 1100 100 Balance 1100 100 - Medications Medications: Current Medications Amlodipine Besylate (Norvasc) 10 mg PO DAILY [facility] Last Admin: 05/13/17 09:52 Dose: 10 mg Atorvastatin Calcium (Lipitor) 20 mg PO DAILY [facility] Last Admin: 05/13/17 09:52 Dose: 20 mg Carvedilol (Coreg) 3.125 mg PO Q12H [facility] Last Admin: 05/13/17 22:23 Dose: 3.125 mg Chlordiazepoxide (Librium) 50 mg PO Q4H PRN PRN Reason: Symptoms of alcohol withdrawl Escitalopram Oxalate (Lexapro) 5 mg PO DAILY [facility] Last Admin: 05/13/17 09:52 Dose: 5 mg Heparin Sodium (Porcine) (Heparin) 5,000 units SC Q12 [facility] PRN Reason: Protocol Last Admin: 05/12/17 21:09 Dose: 5,000 units Hydrochlorothiazide (Hydrodiuril) 25 mg PO DAILY [facility] Last Admin: 05/13/17 09:51 Dose: 25 mg Hydromorphone HCl (Dilaudid) 0.5 mg IVP Q4 [facility] Last Admin: 05/14/17 01:00 Dose: Not Given Hydromorphone HCl (Dilaudid) 1 mg IVP Q4 PRN PRN Reason: Pain, severe (8-10) Last Admin: 05/14/17 01:15 Dose: 1 mg Cefazolin Sodium 2 gm/ Sodium (Chloride) 100 mls @ 100 mls/hr IVPB Q8 [facility] PRN Reason: Protocol Last Admin: 05/13/17 17:55 Dose: 100 mls Lactated Ringer's (Lactated Ringer's) 1,000 mls @ 100 mls/hr IV .Q10H [facility] Lisinopril (Zestril) 40 mg PO DAILY [facility] Last Admin: 05/13/17 09:53 Dose: 40 mg Nicotine (Nicoderm Cq) 1 patch TD DAILY [facility] Last Admin: 05/13/17 09:52 Dose: 1 patch Ondansetron HCl (Zofran Inj) 4 mg IVP Q6 PRN PRN Reason: Nausea/Vomiting Pseudoephedrine HCl (Sudafed Tab) 30 mg PO Q8 [facility] Last Admin: 05/14/17 00:46 Dose: 30 mg Tobramycin/Dexamethasone (Tobradex Opht Susp) 1 drop OS Q4 [facility] Last Admin: 05/14/17 00:45 Dose: 1 drop - Labs Labs: 05/11/17 20:35 05/11/17 20:35 PT 10.7 Seconds (9.8-13.1) 05/11/17 20:35 INR 1.0 (0.9-1.2) 05/11/17 20:35 APTT 24.4 Seconds (25.6-37.1) L 05/11/17 20:35 - Constitutional Appears: No Acute Distress - Head Exam Head Exam: NORMAL INSPECTION - Eye Exam Eye Exam: Normal appearance - Respiratory Exam Respiratory Exam: Clear to Ausculation Bilateral. absent: Rhonchi, Wheezes, Respiratory Distress - Cardiovascular Exam Cardiovascular Exam: REGULAR RHYTHM, +S1, +S2 - GI/Abdominal Exam GI & Abdominal Exam: Soft. absent: Tenderness - Extremities Exam Additional comments: Right lower extremity has been immobilized with a cast. Patient able to wiggle toes, has decreased sensation. Capillary refill < 2 sec. Assessment and Plan - Assessment and Plan (Free Text) Assessment: Patient doing well on POD 0
[2017-05-14 06:34] LABS: HEMOGLOBIN 10.9 g/dL (12.0-18.0); MEAN CELL VOLUME 91.2 fl (80.0-94.0); MEAN CORPUSCULAR HEMOGLOBIN 30.7 pg (27.0-31.0); MEAN CORPUSCULAR HGB CONC 33.7 g/dL (33.0-37.0); RBC 3.55 Mil/uL (4.40-5.90); RED CELL DISTRIBUTION WIDTH 14.4 % (11.5-14.5); WHITE BLOOD COUNT 8.7 K/uL (4.8-10.8)
[2017-05-14 06:43] LABS: ALB/GLOB RATIO 1.2 (1.0-2.1); ALBUMIN 3.7 g/dL (3.5-5.0); ALT/SGPT 56 U/L (21-72); AST/SGOT 127 U/L (17-59); BLOOD UREA NITROGEN 10 mg/dl (9-20); CALCIUM 8.7 mg/dL (8.4-10.2); GFR AFRICAN-AMERICAN > 60; GFR NON-AFRICAN AMERICAN > 60
[2017-05-14] MEDS: ceFAZolin 2 GM in Sodium Chloride 0.9% 100 ML IVPB SCH (09:00)
--- NOTE | 2017-05-14 09:18 | RAD ---
PROCEDURE: Right Ankle Radiographs. HISTORY: s/p right ankle surgery COMPARISON: Right ankle radiographs dated 05/11/2017 FINDINGS: Distal right lower extremity cast limits evaluation of fine bony detail. The patient is status post open reduction internal plate and screw fixation of the previously described comminuted distal fibular fracture. Radiolucent syndesmotic screw is also evident. The ankle mortise is in anatomic alignment. No new fracture or other significant interval changes identified. IMPRESSION: Status post ORIF of the distal right fibula.
--- NOTE | 2017-05-14 09:54 | CP.PCM.PN ---
Subjective - Date & Time of Evaluation Date of Evaluation: 05/14/17 Time of Evaluation: 07:50 - Subjective Subjective: Progress note: Dr. Waldrop 51 year old male patient seen and evaluated at bedside 1 day right ankle ORIF. Patient is AAOx3 and is in NAD. Patient denies of any acute overnight events. Denies of any pain today and reports that everything feels numb mainly. Denies of overnight F/N/V/C/SOB/CP. Denies of any other pedal complains at this time. Objective - Vital Signs/Intake and Output Vital Signs (last 24 hours): Temp Pulse Resp BP Pulse Ox 98.1 F 67 18 138/86 95 05/14/17 08:00 05/14/17 09:43 05/14/17 08:00 05/14/17 09:43 05/14/17 08:00 Intake and Output: 05/14/17 05/14/17 06:59 18:59 Intake Total 100 Balance 100 - Medications Medications: Current Medications Amlodipine Besylate (Norvasc) 10 mg PO DAILY [facility] Last Admin: 05/14/17 09:41 Dose: 10 mg Atorvastatin Calcium (Lipitor) 20 mg PO DAILY [facility] Last Admin: 05/14/17 09:41 Dose: 20 mg Carvedilol (Coreg) 3.125 mg PO Q12H [facility] Last Admin: 05/13/17 22:23 Dose: 3.125 mg Chlordiazepoxide (Librium) 50 mg PO Q4H PRN PRN Reason: Symptoms of alcohol withdrawl Escitalopram Oxalate (Lexapro) 5 mg PO DAILY [facility] Last Admin: 05/14/17 09:41 Dose: 5 mg Heparin Sodium (Porcine) (Heparin) 5,000 units SC Q12 [facility] PRN Reason: Protocol Last Admin: 05/14/17 09:38 Dose: 5,000 units Hydrochlorothiazide (Hydrodiuril) 25 mg PO DAILY [facility] Last Admin: 05/14/17 09:41 Dose: 25 mg Hydromorphone HCl (Dilaudid) 0.5 mg IVP Q4 [facility] Last Admin: 05/14/17 09:44 Dose: Not Given Hydromorphone HCl (Dilaudid) 1 mg IVP Q4 PRN PRN Reason: Pain, severe (8-10) Last Admin: 05/14/17 01:15 Dose: 1 mg Cefazolin Sodium 2 gm/ Sodium (Chloride) 100 mls @ 100 mls/hr IVPB Q8 [facility] PRN Reason: Protocol Last Admin: 05/14/17 09:00 Dose: 100 mls/hr Lactated Ringer's (Lactated Ringer's) 1,000 mls @ 100 mls/hr IV .Q10H [facility] Lisinopril (Zestril) 40 mg PO DAILY [facility] Last Admin: 05/14/17 09:43 Dose: 40 mg Nicotine (Nicoderm Cq) 1 patch TD DAILY [facility] Last Admin: 05/14/17 09:41 Dose: 1 patch Ondansetron HCl (Zofran Inj) 4 mg IVP Q6 PRN PRN Reason: Nausea/Vomiting Pseudoephedrine HCl (Sudafed Tab) 30 mg PO Q8 [facility] Last Admin: 05/14/17 09:42 Dose: 30 mg Tobramycin/Dexamethasone (Tobradex Opht Susp) 1 drop OS Q4 [facility] Last Admin: 05/14/17 09:42 Dose: 1 drop - Labs Labs: 05/14/17 05:45 05/14/17 05:45 PT 10.7 Seconds (9.8-13.1) 05/11/17 20:35 INR 1.0 (0.9-1.2) 05/11/17 20:35 APTT 24.4 Seconds (25.6-37.1) L 05/11/17 20:35 - Constitutional Appears: Well, Non-toxic, No Acute Distress - Extremities Exam Additional comments: Posterior splint is clean, dry and intact Unable to perform ROM at the MTPJ due to popliteal block performed yesterday. Cap refill time: < 3 sec to all digits - Neurological Exam Neurological Exam: Alert, Awake, Oriented x3 - Psychiatric Exam Psychiatric exam: Normal Affect, Normal Mood Assessment and Plan - Assessment and Plan (Free Text) Assessment: 51 year old male patient was evaluated at bedside 1 day right ankle ORIF. Plan: Patient seen and evaluated Discussed in details with attending Dr. Waldrop Keep cast on the Right LE clean, dry and intact Tolerating pain well Remain NWB to the RLE using crutches Patient is stable from podiatry standpoint Will follow patient while in-house; upon discharge please follow up with Dr. Aguirre in podiatry clinic on Thursday
[2017-05-14 11:56] VITALS: BP 121/72; PULSE 87; TEMP 99.1; O2SAT 96
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
--- NOTE | 2017-05-15 12:07 | RAD ---
PROCEDURE: Intraoperative Fluoroscopy. HISTORY: RT. ANKLE ORIF FINDINGS: Fluoroscopic assistance was provided for open reduction and internal fixation of fibular fracture and tibiotalar subluxation. Please refer to the operative report from JIMMY Webb. 137.5 minutes of fluoroscopy time was utilized.
--- NOTE | 2017-05-20 11:39 | OP ---
DATE OF PROCEDURE: 05/13/2017. PREOPERATIVE DIAGNOSES: 1. Right fibular comminuted fracture. 2. Right syndesmotic injury. 3. Right deltoid rupture. POSTOPERATIVE DIAGNOSES: 1. Right fibular comminuted fracture. 2. Right syndesmotic injury. 3. Right deltoid rupture. PROCEDURES PERFORMED: 1. Right fibular open reduction and internal fixation. 2. Right foot syndesmotic repair with utilization of Arthrex TightRope. 3. Deltoid rupture repair. SURGEON: Ger Waldrop DPM. ASSISTANTS: Bandar Thorpe DPM, PGY 3; Maxim Dee DPM, PGY-3; and Dr. Joanne Yousif, PGY-2. ANESTHESIOLOGIST: Pancho Hilario MD ANESTHESIA: General LMA. INDICATIONS: The patient is a 51-year-old male with the above mentioned diagnoses. The patient has exhausted all forms of conservative treatment at this time and following closed reduction of ankle, wished to undergo the procedure for the above mentioned diagnoses. After careful explanation of risks, benefits and complications for the proposed procedure, the patient signed the consent form. No guarantees were given nor implied. Prior to taking the patient to the OR, n.p.o. status was verified and preoperative antibiotics were given. DESCRIPTION OF PROCEDURE: The patient was brought to the operating room and placed on the operating table in supine position. A pneumatic thigh tourniquet was placed on the patient's right thigh at 330 mmHg. Following induction of general sedation, the right foot and ankle were then prepped and draped in normal sterile manner and the procedure began. PROCEDURE #1: Right fibular open reduction and internal fixation. At this time, attention was directed to the patient's right lateral aspect of the leg. Utilizing intraoperative fluoroscopy, first the fracture site was located. The fracture was noted to be comminuted, starting roughly 2-cm above the joint line of the ankle. At this time, utilizing #15 blade, a roughly 8-cm long incision was made directly overlying the lateral aspect of the fibula. The incision was then deepened utilizing blunt dissection down to the level of the periosteum. It was noted there was a diffuse amount of hematoma discharge in the area, which was cleaned and flushed out. At this time, utilizing a #15 blade, a periosteal incision was made directly overlying the fracture site and the fracture came into view. The fracture was very comminuted, and so the decision was made to use just a Buttress plate on the lateral aspect of the fibula to hold the fibula out of length and would span the fracture site to allow for healing to occur by secondary intention. So, at this time the fracture was then reduced as best possible with the utilization of bone clamps and clamped out of length for temporary fixation. A Synthes plate was then measured and placed in the lateral aspect with temporary fixation on the fibula and first the attention was directed to the distal holes where with utilization of non-locking and locking screws, the distal 3 holes were filled with 3.5 locking and non-locking cortical screws. The 4th hole was left open for the Arthrex TightRope to go through and attention was then directed proximally, where bone clamps were readjusted to allow for adequate length to be kept and the proximal part of the plate was then attached to the fibula with once again 3.5 locking and non-locking cortical screws. Following this, we continued to use intraoperative fluoroscopy, the position of the fracture was verified to be in good alignment with the ankle and that the end of the fibula was held out at length well, and so at this time the wound was then flushed with copious amounts of normal sterile saline. PROCEDURE #2. Syndesmotic repair with Arthrex TightRope. Attention was then redirected to the 4th hole of the Synthes plate, which had been left open for the placement of the TightRope. At this time, the ankle was put in maximum dorsiflexion and eversion and external rotation and the syndesmosis was stressed. There was noted to be an increased gapping in the syndesmosis, but also of the deltoid ligament at this time and so with the utilization of the Arthrex TightRope set, a K-wire was drilled from lateral to medially through the 4th hole of the fibular plate exiting in the anteromedial aspect of the tibia. With utilization of the TightRope kit, the cannulated drill was placed over the TightRope and was drilled and passed through the medial side and then the TightRope was then passed from lateral to medial. First, the medial button was secured on the opposite side of the tibia and the TightRope was then cinched down from lateral to medial to allow compression across the syndesmosis. This was aided by use of a large temporary bone clamp applied on the tibia and fibula and was verified to be in good position with the use of intraoperative fluoroscopy. Following this, once the TightRope was cinched down, the extra suture was then cut and passed off the operative field. The entire fibular incision was then flushed with copious amounts of normal sterile saline and the wounds were closed with 2-0, 3-0, 4-0 Vicryl, and 4-0 Nylon in a normal sterile manner. PROCEDURE #3: Repair of ruptured deltoid ligament. At this time, attention was then directed medially, where utilizing a #15 blade, a curvilinear incision was made directly overlying the distal tip of the medial malleolus extending distally over the area where the superficial deltoids would lay. Upon immediate dissection in the incision, there was noted to be an almost rag like tearing of all of the superficial and deep deltoids, and so with utilization of blunt dissection, the deltoid was fully reflected back and with the use of #15 blade, the deltoid was partially reflected off the distal aspect of the tibia allowing for placement of a bone anchor. At this time, attention was then directed to the body of the talus which was visible to the incision site and with use of a K-wire, the body of the talus was correctly identified and positioning for a bone anchor to go in with the use of the Arthrex InternalBrace System was verified. Following this, the distal area of the talar body which meets the talar neck was then drilled and tapped and insertion of a 4.75 bone anchor from the Arthrex InternalBrace System was put with the sutured talus remaining intact without complication. Following this, pressure was then held from medial to laterally to close down the deltoid ligament and at this time, the distal aspect of the tibia was then drilled for placement of a second bone anchor, this was then tapped. The patient was then held in back with inversion and eversion to get the correct tightness of the Arthrex InternalBrace and following this, the bone anchor was then inserted to the distal tibia without complication. Following this, a 3-0 SutureTak was then prepped once again on the distal aspect of the tibia the 2 0 was placed and knee tapped and the 3-0 SutureTak was placed in the distal tip of the fibula. The SutureTak was then grabbed and this would allow for closure of the superficial deltoid over the now InternalBrace which was acting as the deep deltoid. The superficial deltoid was closed with 3-0 SutureTak without complication. The wound was then flushed with copious amounts of normal sterile saline. The deltoid was then reinforced with 2-0 and 3-0 Vicryl. The wound was then closed with 3-0 Vicryl and 4-0 Nylon in a normal sterile manner. POSTOPERATIVE CONDITION: The patient tolerated anesthesia and procedure well and was transported to the recovery room with vital signs stable and neurovascular status intact to the right foot and ankle. This patient will follow up with Dr. Waldrop in clinic as previously discussed with the patient. Bandar Thorpe DPM
== END 2017-05-14 15:30 | disposition home or self-care (01) | DRG 559 ==
LOC: H.ER 19:03 → H.ERHOLD 22:16 → H.TEL 05-12 10:19
PROVIDERS: ADMIT Family Medicine Geriatric Medicine; ATTEND Family Medicine Geriatric Medicine
PROC: 0QSJXZZ Reposition Right Fibula, External Approach (ICD-10-PCS; principal; 2017-05-11)
PROC: 08QPXZZ Repair Left Upper Eyelid, External Approach (ICD-10-PCS; 2017-05-11)
PROC: 3E0T3BZ Introduction of Anesthetic Agent into Peripheral Nerves and Plexi, Percutaneous Approach (ICD-10-PCS; 2017-05-13)
PROC: 0QSJ04Z Reposition Right Fibula with Internal Fixation Device, Open Approach (ICD-10-PCS; 2017-05-13)
PROC: 0SSF04Z Reposition Right Ankle Joint with Internal Fixation Device, Open Approach (ICD-10-PCS; 2017-05-13)
PROC: 0MQQ0ZZ Repair Right Ankle Bursa and Ligament, Open Approach (ICD-10-PCS; 2017-05-13)
PROC: 3E0T3BZ Introduction of Anesthetic Agent into Peripheral Nerves and Plexi, Percutaneous Approach (ICD-10-PCS; 2017-05-13 19:00)
DX: S82.831A Other fracture of upper and lower end of right fibula, initial encounter for closed fracture (principal); I50.32 Chronic diastolic (congestive) heart failure; I11.0 Hypertensive heart disease with heart failure; S02.32XA Fracture of orbital floor, left side, initial encounter for closed fracture; E78.00 Pure hypercholesterolemia, unspecified; E78.5 Hyperlipidemia, unspecified; F10.129 Alcohol abuse with intoxication, unspecified; Y04.8XXA Assault by other bodily force, initial encounter; Y90.8 Blood alcohol level of 240 mg/100 ml or more; F17.210 Nicotine dependence, cigarettes, uncomplicated; I25.10 Atherosclerotic heart disease of native coronary artery without angina pectoris; Z91.14 Patient's other noncompliance with medication regimen; Z86.73 Personal history of transient ischemic attack (TIA), and cerebral infarction without residual deficits; F32.9 Major depressive disorder, single episode, unspecified; R07.89 Other chest pain; S05.02XA Injury of conjunctiva and corneal abrasion without foreign body, left eye, initial encounter; S01.112A Laceration without foreign body of left eyelid and periocular area, initial encounter; Y92.481 Parking lot as the place of occurrence of the external cause; S93.431A Sprain of tibiofibular ligament of right ankle, initial encounter; S93.421A Sprain of deltoid ligament of right ankle, initial encounter

== ENCOUNTER 2017-05-29 00:58 | Emergency (ER) | payer MEDICAID ==
[2017-05-29 00:59] VITALS: BMI 28.7
[2017-05-29 01:14] VITALS: BP 175/111; PULSE 99; RESP 16; TEMP 98.4; O2SAT 98
--- NOTE | 2017-05-29 01:42 | ED PDOC ---
Lower Extremity Pain/Injury Time Seen by Provider: 05/29/17 01:13 Chief Complaint (Nursing): Lower Extremity Problem/Injury Chief Complaint (Provider): Ankle Pain History Per: Patient History/Exam Limitations: no limitations Onset/Duration Of Symptoms: Days (since 05/13/17) Current Symptoms Are (Timing): Still Present Severity: Mild Pain Scale Rating Of: 4 Additional Complaint(s): Patient is a 51 year old male with medical history of depression, ETOH abuse, HTN/CAD, who presents to ED for evaluation of splint to R foot/ankle. Patient reports the bandages of his splint got wet and is requesting they be changed at this time. Patient states that he fractured his ankle on 05/11/17 and had surgery by Dr Waldrop on 05/13/17 (R ankle ORIF). Patient states he was supposed to follow up with the surgeon on 05/22/17 however missed his appointment. Patient reports localized pain (4/10) to the ankle, for which he has been smoking weed with no relief. Patient denies any loss of sensation to the extremity, recent fever, numbness/tingling, or increase in pain from baseline since the injury. Patient took no medications prior to arrival in ED. PMD: Randy Past Medical History Reviewed: Historical Data, Nursing Documentation, Vital Signs Vital Signs: Last Vital Signs Temp 98.4 F 05/29/17 01:10 Pulse 99 H 05/29/17 01:10 Resp 16 05/29/17 01:10 BP 175/111 H 05/29/17 01:10 Pulse Ox 98 05/29/17 01:10 - Medical History PMH: CAD, Depression, HTN, Hypercholesterolemia, Hyperlipidemia, TIA Denies: HIV, Chronic Kidney Disease - Surgical History Other surgeries: R ankle ORIF - Family History Family History: States: Unknown Family Hx, Hypertension Denies: [place], CAD - Living Arrangements Living Arrangements: Other (homeless) - Social History Current smoker - smoking cessation education provided: Yes Alcohol: > 2 Drinks/Day Drugs: Cannabis - Immunization History Hx Tetanus Toxoid Vaccination: Yes - Home Medications Home Medications: Ambulatory Orders Medication Instructions Recorded Clopidogrel [Plavix] 75 mg PO DAILY #30 tab 06/24/16 Multivit-Minerals/Folic Acid 1 tab PO DAILY 11/28/16 [Centrum Multigummies] Aspirin [[place] Aspirin] 81 mg PO DAILY #30 tab.chew 05/01/17 Atorvastatin [Lipitor] 20 mg PO DAILY #30 tab 05/01/17 Carvedilol [Coreg] 3.125 mg PO Q12H #60 tab 05/01/17 Escitalopram [Lexapro] 5 mg PO DAILY 30 Days #30 tab 05/01/17 Lisinopril [Zestril] 40 mg PO DAILY tab 05/01/17 amLODIPine [Norvasc] 10 mg PO DAILY #30 tab 05/01/17 hydroCHLOROthiazide [Hydrodiuril] 25 mg PO DAILY tab 05/01/17 Cephalexin [Keflex] 500 mg PO Q8H #21 capsule 05/14/17 oxyCODONE/Acetaminophen [Percocet 1 ea PO Q6H PRN #10 tab 05/14/17 5/325 mg Tab] Acetaminophen [Acetaminophen 8 650 mg PO Q8 #30 tablet.er 05/29/17 Hour] - Allergies Allergies/Adverse Reactions: Allergies Allergy/AdvReac Type Severity Reaction Status Date / Time No Known Allergies Allergy Verified 05/29/17 01:10 Review of Systems Constitutional: Negative for: Fever, Chills Cardiovascular: Negative for: Chest Pain, Palpitations Respiratory: Negative for: Cough, Shortness of Breath, Hemoptysis, SOB with Exertion, Pleuritic Pain Gastrointestinal: Negative for: Nausea, Vomiting, Abdominal Pain Skin: Negative for: Rash Neurological: Negative for: Weakness Physical Exam - Reviewed Nursing Documentation Reviewed: Yes (palpable cord) Vital Signs Reviewed: Yes - Physical Exam Appears: Positive for: Well, Non-toxic, No Acute Distress Head Exam: Positive for: ATRAUMATIC, NORMOCEPHALIC Skin: Positive for: Normal Color, Warm, Dry Eye Exam: Positive for: EOMI, PERRL Neck: Positive for: Supple Cardiovascular/Chest: Positive for: Regular Rate, Rhythm Respiratory: Positive for: Normal Breath Sounds. Negative for: Decreased Breath Sounds, Accessory Muscle Use, Respiratory Distress Pulses-Dorsalis Pedis (L): 2+ Pulses-Dorsalis Pedis (R): 2+ Extremity: Positive for: Tenderness (diffusely to the right ankle and dorsum of right proximal foot), Capillary Refill (< 2 seconds in all toes of right foot), Swelling (mild to medial and lateral right ankle and dorsum of right foot), Other (stirrup splint in place to right ankle, removed with (-) distal NV deficit on exam, sensation intact bilaterally. Scattered ecchymosis noted to distal right anterior and posterior lower extremity. (+) healing surgical incisions (-) wound drainage (-) erythema (-) evidence of infection (-) warmth.) . Negative for: Calf Tenderness ((-) palpable cord) Neurologic/Psych: Positive for: Alert, Oriented, Mood/Affect (appropriate), Gait (steady with crutches) - ECG O2 Sat by Pulse Oximetry: 98 (RA) Pulse Ox Interpretation: Normal Medical Decision Making Medical Decision Making: Initial impression: ankle/foot pain, visit for splint care -- Toradol IM -- Tylenol PO -- Jackson bandages of splint replaced x2. Splint reapplied in ED. On re-evaluation, patient reports improvement of symptoms. On exam, patient remains AAOx3, in no acute distress. Lungs clear to auscultation, cardiac RRR, repeat neuro exam shows no focal findings. VSS, stable for discharge. Patient instructed to follow-up with pmd / Dr Waldrop / podiatry clinic in 1-2 days without fail. Advised to take medication as prescribed. Return to the emergency room at any time for any new or worsening symptoms. Patient states he/ she fully agrees with and understands discharge instructions. States that he/ she agrees with the plan and disposition. Verbalized and repeated discharge instructions and plan. I have given the patient opportunity to ask any additional questions. Disposition - Clinical Impression Clinical Impression: Ankle pain, right, Ankle fracture, Fracture of tibia and fibula - Patient ED Disposition Is Patient to be Admitted: No Counseled Patient/Family Regarding: Diagnosis, Need For Followup, Rx Given - Disposition Referrals: Podiatry Clinic [Outside] Disposition: Routine/Home Disposition Time: 01:37 Condition: STABLE Prescriptions: Acetaminophen [Acetaminophen 8 Hour] 650 mg PO Q8 #30 tablet.er Instructions: Ankle Fracture, Cast Care Forms: [employer] (Ethiopian) Print Language: BELGIAN
== END 2017-05-29 03:05 | disposition home or self-care (01) ==
LOC: H.ER 00:58
DX: S82.891D Other fracture of right lower leg, subsequent encounter for closed fracture with routine healing (principal); M25.571 Pain in right ankle and joints of right foot; F17.200 Nicotine dependence, unspecified, uncomplicated; I10 Essential (primary) hypertension; Z86.73 Personal history of transient ischemic attack (TIA), and cerebral infarction without residual deficits
CPT/HCPCS: 29515; 96372; 99282; J1885

== ENCOUNTER 2017-06-08 16:57 | Emergency (ER) | payer MEDICAID ==
[2017-06-08 16:58] VITALS: BMI 28.7
[2017-06-08 17:35] VITALS: RESP 16
--- NOTE | 2017-06-08 19:13 | ED PDOC ---
Lower Extremity Pain/Injury Time Seen by Provider: 06/08/17 19:05 Chief Complaint (Nursing): Lower Extremity Problem/Injury Chief Complaint (Provider): Took cast off History Per: Patient History/Exam Limitations: intoxication Additional Complaint(s): Pt intoxicated requesting evaluation for R foot. Past Medical History Reviewed: Nursing Documentation, Vital Signs Vital Signs: Last Vital Signs Temp 97.9 F 06/08/17 17:32 Pulse 89 06/08/17 17:32 Resp 16 06/08/17 17:32 BP 158/90 H 06/08/17 17:32 Pulse Ox 99 06/08/17 17:32 - Medical History PMH: CAD, Depression, HTN, Hypercholesterolemia, Hyperlipidemia, TIA Denies: HIV, Chronic Kidney Disease - Surgical History Other surgeries: ORIF - Family History Family History: States: Unknown Family Hx, Hypertension Denies: [place], CAD - Immunization History Hx Tetanus Toxoid Vaccination: Yes - Home Medications Home Medications: Ambulatory Orders Medication Instructions Recorded Clopidogrel [Plavix] 75 mg PO DAILY #30 tab 06/24/16 Multivit-Minerals/Folic Acid 1 tab PO DAILY 11/28/16 [Centrum Multigummies] Aspirin [[place] Aspirin] 81 mg PO DAILY #30 tab.chew 05/01/17 Atorvastatin [Lipitor] 20 mg PO DAILY #30 tab 05/01/17 Carvedilol [Coreg] 3.125 mg PO Q12H #60 tab 05/01/17 Escitalopram [Lexapro] 5 mg PO DAILY 30 Days #30 tab 05/01/17 Lisinopril [Zestril] 40 mg PO DAILY tab 05/01/17 amLODIPine [Norvasc] 10 mg PO DAILY #30 tab 05/01/17 hydroCHLOROthiazide [Hydrodiuril] 25 mg PO DAILY tab 05/01/17 Cephalexin [Keflex] 500 mg PO Q8H #21 capsule 05/14/17 oxyCODONE/Acetaminophen [Percocet 1 ea PO Q6H PRN #10 tab 05/14/17 5/325 mg Tab] Acetaminophen [Acetaminophen 8 650 mg PO Q8 #30 tablet.er 05/29/17 Hour] Naproxen [Naprosyn] 500 mg PO BID PRN #15 tablet 06/08/17 Sulfamethoxazole/Trimethoprim 1 tab PO BID #13 tab 06/08/17 [Bactrim DS 800 mg-160 mg] - Allergies Allergies/Adverse Reactions: Allergies Allergy/AdvReac Type Severity Reaction Status Date / Time No Known Allergies Allergy Verified 06/08/17 17:31 Review of Systems Review Of Systems: ROS cannot be obtained secondary to pt's inabilty to answer questions. Physical Exam - Reviewed Nursing Documentation Reviewed: Yes Vital Signs Reviewed: Yes - Physical Exam Appears: Positive for: Well, No Acute Distress Head Exam: Positive for: ATRAUMATIC Skin: Positive for: Normal Color, Warm, Dry Eye Exam: Positive for: Normal appearance, EOMI, PERRL Cardiovascular/Chest: Positive for: Regular Rate, Rhythm Respiratory: Positive for: Normal Breath Sounds Extremity: Positive for: Other - ECG O2 Sat by Pulse Oximetry: 99 Medical Decision Making Medical Decision Makin yo intoxicated male for RLE evaluation. - EtOH level - Podiatry consult 19:10 Podiatry resident notified of consult. 22:00 Pt AAOX3. Disposition - Clinical Impression Clinical Impression: Ankle pain, right, Alcohol intoxication - Disposition Referrals: Podiatry Clinic [Outside] Disposition: Routine/Home Disposition Time: 22:02 Condition: STABLE Additional Instructions: seguimiento con la clnica de podologa el viernes sin falta! Use muletas y no ponga ningn peso en mock [place] Prescriptions: Naproxen [Naprosyn] 500 mg PO BID PRN #15 tablet PRN Reason: Pain, Moderate (4-7) Sulfamethoxazole/Trimethoprim [Bactrim DS 800 mg-160 mg] 1 tab PO BID #13 tab Instructions: Ankle Fracture, Alcohol Abuse and Alcoholism (DC) Forms: [employer] (Hungarian) Print Language: GUAMANIAN
--- NOTE | 2017-06-08 20:00 | CP.PCM.CON ---
History of Present Illness - History of Present Illness History of Present Illness: Podiatry consult note for Dr. Waldrop 51 year old undomiciled male with PMHx depressing, ETOH abuse, HTN/CAD was seen in the ED for complaint of right foot pain. Patient had a right ankle ORIF on . Patient states that he has pain on his right foot and admits that he drank today. States that his dressing got wet and he took his splint today. He states that he has not followed up with Dr. Waldrop since the surgery. He denies any nausea/vomitting/fever/chills/shortness of breath, and numbness or tingling , but admits to pain on his right calf. Past Patient History - Infectious Disease Hx of Infectious Diseases: None - Past Medical History & Family History Past Medical History?: Yes - Past Social History Smoking Status: Light Smoker < 10 Cigarettes Daily - CARDIAC Hx Hypercholesterolemia: Yes Hx Hypertension: Yes - PULMONARY Hx Respiratory Disorders: No - NEUROLOGICAL Hx Transient Ischemic Attacks (TIA): Yes - HEENT Hx HEENT Problems: No - RENAL Hx Chronic Kidney Disease: No - ENDOCRINE/METABOLIC Hx Endocrine Disorders: No - HEMATOLOGICAL/ONCOLOGICAL Hx Human Immunodeficiency Virus (HIV): No - INTEGUMENTARY Hx Dermatological Problems: No - MUSCULOSKELETAL/RHEUMATOLOGICAL Hx Musculoskeletal Disorders: Yes Hx Falls: Yes - GASTROINTESTINAL Hx Gastrointestinal Disorders: No - GENITOURINARY/GYNECOLOGICAL Hx Genitourinary Disorders: No - PSYCHIATRIC Hx Depression: Yes - SURGICAL HISTORY Hx Surgeries: Yes Hx Orthopedic Surgery: Yes Other/Comment: ORIF JAW 2014 - ANESTHESIA Hx Anesthesia: Yes Hx Anesthesia Reactions: No Hx Malignant Hyperthermia: No Meds Home Medications: Home Medication List Medication Instructions Recorded Confirmed Type Naproxen [Naprosyn] 500 mg PO BID PRN #15 tablet 06/08/17 Rx Sulfamethoxazole/Trimethoprim 1 tab PO BID #13 tab 06/08/17 Rx [Bactrim DS 800 mg-160 mg] Allergies/Adverse Reactions: Allergies Allergy/AdvReac Type Severity Reaction Status Date / Time No Known Allergies Allergy Verified 06/08/17 17:31 Physical Exam - Constitutional Appears: Well, Non-toxic, No Acute Distress - Extremities Exam Additional comments: right lower extremity focused exam: VASC: DP and PT pulses graded 2/4, CFT <3 seconds to digits 1-5, Temperature runs warm to cool proximal to distal. Non-pitting edema noted to right leg and ankle ORTHO:Tenderness on palpation to the right calf upon compression, tenderness upon palpation to medial incision site DERM: Sutures noted to incisions sites on the medial and lateral aspect of the ankle, no dehiscence, no drainage, no malodor, no purulence, no acute signs of infection noted. Ecchymosis noted to right heel NEURO: Protective sensation grossly diminished. No gross absence of regional lower extremity sensation - Neurological Exam Neurological exam: Alert - Psychiatric Exam Psychiatric exam: Normal Affect Results - Vital Signs Recent Vital Signs: Last Vital Signs Temp 97.9 F 06/08/17 17:32 Pulse 89 06/08/17 17:32 Resp 16 06/08/17 17:32 BP 158/90 H 06/08/17 17:32 Pulse Ox 99 06/08/17 19:16 Assessment & Plan - Assessment and Plan (Free Text) Assessment: 51 year old male 1 month s/p right ankle ORIF Plan: patient examined and evaluated discussed in detail with attending, Dr. Waldrop chart, lab, vitals reviewed;afebrile venous duplex-negative for DVT right ankle radiographs- hardware intact sutures from lateral and medial incision sites removed patient placed in a well padded posterior splint patient to remain non-WB with crutches at all times patient to keep dressing clean, dry, intact RICE therapy Antibiotics per ED attending patient to follow up in podiatry clinic this week with Dr. Aguirre
[2017-06-08] MEDS ORDERED: Tmp-Smz 800 mg-160 mg DS Tab PO STA (21:56)
--- NOTE | 2017-06-08 22:00 | US ---
EXAM: US Duplex Right Lower Extremity Veins EXAM DATE/TIME: 06/08/2017 7:50 PM CLINICAL HISTORY: 51 years old, male; Pain; Leg, lower; Right; Additional info: Pain, S/P orif ankle fracture TECHNIQUE: Real-time ultrasound scan of the veins of the right lower extremity with color Doppler flow, spectral waveform analysis and compression. COMPARISON: There are no prior studies for comparison. FINDINGS: Deep veins: Common femoral, superficial femoral, popliteal and posterior tibial veins were evaluated. All veins examined are compressible. There are no intraluminal filling defects. There is expected blood flow on Doppler imaging. There is change in waveform with augmentation. Impression: No deep venous thrombosis in the visualized vascular segments of the right lower extremity
[2017-06-08] MEDS ORDERED: Tmp-Smz 800 mg-160 mg DS Tab ONE (22:07)
[2017-06-08 22:11] VITALS: BP 102/59; PULSE 82; TEMP 97.8; O2SAT 95
--- NOTE | 2017-06-09 08:17 | RAD ---
PROCEDURE: Right Ankle Radiographs. HISTORY: Pain COMPARISON: Right ankle 05/13/2017. FINDINGS: BONES: Prior cast is been removed accentuating detail in the soft tissue and bony structures. Prior ORIF again appreciated the distal right fibula and lateral malleolus including compression plate and multiple screws once again. Fracture remains reduced however no callus formation is appreciable at this time. Radiolucent orthopedic screw at the distal tibia and fibula noted once again. Ankle mortise appears stable. Limited local soft tissue edema noted relatively diffusely. JOINTS: No subluxation or dislocation. No osteoarthritis. Ankle mortise maintained. Talar dome intact SOFT TISSUES: Normal. OTHER FINDINGS: None. IMPRESSION: Status post ORIF distal right fibular fracture appearing stable.
--- NOTE | 2017-06-09 08:25 | RAD ---
PROCEDURE: Right Foot Radiographs. HISTORY: Pain COMPARISON: None. FINDINGS: BONES: No acute fracture dislocation is appreciate related to the right foot throughout, once again. Incidental ORIF noted at the distal right fibula and tibia as addressed separately and a right ankle radiograph series also performed 06/08/2017. No interval destructive bony lesion appreciable. JOINTS: Incidental note is made of reduction of subluxed distal tibia. SOFT TISSUES: Normal. OTHER FINDINGS: None. IMPRESSION: Unremarkable right foot radiographs with incidentally noted ORIF right ankle as discussed above.
== END 2017-06-08 22:40 | disposition home or self-care (01) ==
LOC: H.ER 16:57
DX: M25.571 Pain in right ankle and joints of right foot (principal); Z48.02 Encounter for removal of sutures; F10.129 Alcohol abuse with intoxication, unspecified; E78.00 Pure hypercholesterolemia, unspecified; I25.10 Atherosclerotic heart disease of native coronary artery without angina pectoris; Z86.73 Personal history of transient ischemic attack (TIA), and cerebral infarction without residual deficits

== ENCOUNTER 2017-08-05 13:41 | Emergency (ER) | payer MEDICAID ==
[2017-08-05 13:41] VITALS: BMI 28.7
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
[2017-08-05 14:32] LABS: BASO # 0.1 K/uL (0.0-0.2); BASO % 2.7 % (0.0-2.0); EOS # 0.1 K/uL (0.0-0.7); EOS % 2.6 % (0.0-4.0); HEMOGLOBIN 12.6 g/dL (12.0-18.0); MEAN CELL VOLUME 91.9 fl (80.0-94.0); MEAN CORPUSCULAR HEMOGLOBIN 31.2 pg (27.0-31.0); MEAN PLATELET VOLUME 6.9 fl (7.2-11.7); MONO # 0.4 K/uL (0.0-0.8); MONO % 9.2 % (0.0-10.0); NEUT # 2.6 K/uL (1.8-7.0); NEUT % 62.5 % (50.0-75.0); RBC 4.03 Mil/uL (4.40-5.90); RED CELL DISTRIBUTION WIDTH 14.2 % (11.5-14.5); WHITE BLOOD COUNT 4.2 K/uL (4.8-10.8)
[2017-08-05 14:46] LABS: ALB/GLOB RATIO 1.2 (1.0-2.1); ALBUMIN 4.4 g/dL (3.5-5.0); ALT/SGPT 65 U/L (21-72); AST/SGOT 101 U/L (17-59); BLOOD UREA NITROGEN 15 mg/dl (9-20); CALCIUM 8.8 mg/dL (8.4-10.2); GFR AFRICAN-AMERICAN > 60; GFR NON-AFRICAN AMERICAN > 60
--- NOTE | 2017-08-05 15:24 | RAD ---
PROCEDURE: Right Ankle Radiographs. HISTORY: large joint effusion, surg 04/2017 COMPARISON: 07/27/2017 and 07/03/2017. FINDINGS: BONES: Normal. No fractureThe comminuted distal metaphyseal -diaphyseal fracture with lateral plate 18 and syndesmotic orthopedic fixation is renoted. The relative 4 to 5 mm spacing of the medial ankle mortise is similar to the 07/03/2017 study. Tiny chip osseous avulsion fracture fragments inferior to the medial malleolus are similar to the 2018 study. There is likely some interval callus formation along the medial distal tibial cortex. . The inter osseous trace calcific/ossific like density on the current study is more conspicuous given the absence of the overlying prior casting material this is also probably increasing conspicuity given the differences projections since 07/27/2017. 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 The ankle mortise appearance is similar as detailed above. Talar dome intact -some trace subchondral cystic changes medial talar dome are probable. SOFT TISSUES: No interval pathology suggested. OTHER FINDINGS: None. IMPRESSION: Postop changes as above. No hardware failure. . Soft tissue interval changes syndesmotic region as above.
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
[2017-08-05 16:34] VITALS: O2SAT 99
[2017-08-05 19:43] VITALS: PULSE 70; RESP 14; TEMP 98
[2017-08-05 19:58] VITALS: BP 156/94
== END 2017-08-05 20:18 | disposition home or self-care (01) ==
LOC: H.ER 13:41
DX: M25.571 Pain in right ankle and joints of right foot (principal); F10.129 Alcohol abuse with intoxication, unspecified; F17.210 Nicotine dependence, cigarettes, uncomplicated; I10 Essential (primary) hypertension; Z79.82 Long term (current) use of aspirin; Z86.73 Personal history of transient ischemic attack (TIA), and cerebral infarction without residual deficits; Z91.5 Personal history of self-harm; Z86.59 Personal history of other mental and behavioral disorders; Z98.890 Other specified postprocedural states; Z91.14 Patient's other noncompliance with medication regimen
CPT/HCPCS: 73610; 80053; 80320; 82948; 85025; 96374; 99285; J1885

== ENCOUNTER 2017-08-14 15:17 | Emergency (ER) | payer MEDICAID ==
[2017-08-14 15:18] VITALS: BMI 28.7
[2017-08-14 15:24] VITALS: TEMP 98.8
--- NOTE | 2017-08-14 16:54 | ED PDOC ---
HPI: Psych/Substance Abuse Time Seen by Provider: 08/14/17 15:30 Chief Complaint (Nursing): Alcohol Ingestion Chief Complaint (Provider): Intoxication History Per: Patient Additional Complaint(s): Pt BIBA for alcohol intoxication. States he drank 4 beers today. Past Medical History Reviewed: Nursing Documentation, Vital Signs Vital Signs: Last Vital Signs Temp 98.8 F 08/14/17 15:22 Pulse 88 08/14/17 15:22 Resp 19 08/14/17 15:22 BP 155/103 H 08/14/17 15:22 Pulse Ox 98 08/14/17 15:22 - Medical History PMH: CAD, Depression, Fractures, HTN, Hypercholesterolemia, Hyperlipidemia, TIA Denies: Diabetes, Hepatitis, HIV, Chronic Kidney Disease, Seizures, Sexually Transmitted Disease - Family History Family History: States: Unknown Family Hx, Hypertension Denies: [place], CAD - Immunization History Hx Tetanus Toxoid Vaccination: Yes - Home Medications Home Medications: Ambulatory Orders Medication Instructions Recorded Clopidogrel [Plavix] 75 mg PO DAILY #30 tab 06/24/16 Multivit-Minerals/Folic Acid 1 tab PO DAILY 11/28/16 [Centrum Multigummies] Aspirin [Hoven Aspirin] 81 mg PO DAILY #30 tab.chew 05/01/17 Atorvastatin [Lipitor] 20 mg PO DAILY #30 tab 05/01/17 Carvedilol [Coreg] 3.125 mg PO Q12H #60 tab 05/01/17 Escitalopram [Lexapro] 5 mg PO DAILY 30 Days #30 tab 05/01/17 Lisinopril [Zestril] 40 mg PO DAILY tab 05/01/17 amLODIPine [Norvasc] 10 mg PO DAILY #30 tab 05/01/17 hydroCHLOROthiazide [Hydrodiuril] 25 mg PO DAILY tab 05/01/17 Cephalexin [Keflex] 500 mg PO Q8H #21 capsule 05/14/17 oxyCODONE/Acetaminophen [Percocet 1 ea PO Q6H PRN #10 tab 05/14/17 5/325 mg Tab] Acetaminophen [Acetaminophen 8 650 mg PO Q8 #30 tablet.er 05/29/17 Hour] Naproxen [Naprosyn] 500 mg PO BID PRN #15 tablet 06/08/17 Sulfamethoxazole/Trimethoprim 1 tab PO BID #13 tab 06/08/17 [Bactrim DS Tab] Naproxen 500 mg PO BID #20 tab 08/05/17 Carvedilol [Coreg] 3.125 mg PO Q12 #14 tab 08/14/17 Furosemide [Lasix] 20 mg PO BID #14 tab 08/14/17 Lisinopril [Zestril] 40 mg PO DAILY #7 tab 08/14/17 amLODIPine [Norvasc] 10 mg PO DAILY #7 tab 08/14/17 - Allergies Allergies/Adverse Reactions: Allergies Allergy/AdvReac Type Severity Reaction Status Date / Time No Known Allergies Allergy Verified 08/14/17 15:22 Review of Systems Constitutional: Negative for: Fever Cardiovascular: Negative for: Chest Pain Respiratory: Negative for: Cough, Shortness of Breath Gastrointestinal: Negative for: Abdominal Pain Neurological: Negative for: Headache, Dizziness Physical Exam - Reviewed Nursing Documentation Reviewed: Yes Vital Signs Reviewed: Yes - Physical Exam Appears: Positive for: Well, No Acute Distress Head Exam: Positive for: ATRAUMATIC, NORMAL INSPECTION Skin: Positive for: Normal Color, Warm, Dry Eye Exam: Positive for: Normal appearance, EOMI, PERRL Cardiovascular/Chest: Positive for: Regular Rate, Rhythm Respiratory: Positive for: Normal Breath Sounds Extremity: Positive for: Normal ROM Neurologic/Psych: Positive for: 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 Negative for: Motor/Sensory Deficits, Aphasia, Facial Droop - ECG O2 Sat by Pulse Oximetry: 98 Medical Decision Making Medical Decision Makin yo male with EtOH intoxication. - accucheck - EtOH level 16:50 Pt AAOX3, steady gait. States he wants to go home, lives in [place]. States he needs refill for HTN meds. Pt ate full meal. Disposition - Clinical Impression Clinical Impression: Alcohol ingestion, Hypertension - Disposition Referrals: [facility] [place] [Outside] Disposition: Routine/Home Disposition Time: 16:55 Condition: STABLE Prescriptions: amLODIPine [Norvasc] 10 mg PO DAILY #7 tab Carvedilol [Coreg] 3.125 mg PO Q12 #14 tab Furosemide [Lasix] 20 mg PO BID #14 tab Lisinopril [Zestril] 40 mg PO DAILY #7 tab Instructions: Alcohol Use - When Is Drinking a Problem?, High Blood Pressure in Adults Forms: [employer] (Sinhala) Print Language: PUERT[place] RICAN
[2017-08-14] MEDS ORDERED: Albuterol-Ipratrop 3 mg / 0.5 (3 ml) UD INH STA (17:20)
[2017-08-14 23:21] VITALS: BP 170/111; PULSE 81; RESP 18; O2SAT 96
== END 2017-08-14 17:30 | disposition home or self-care (01) ==
LOC: H.ER 15:17
DX: F10.129 Alcohol abuse with intoxication, unspecified (principal); I10 Essential (primary) hypertension; E78.00 Pure hypercholesterolemia, unspecified; F32.9 Major depressive disorder, single episode, unspecified; I25.10 Atherosclerotic heart disease of native coronary artery without angina pectoris; Z79.82 Long term (current) use of aspirin; Z86.73 Personal history of transient ischemic attack (TIA), and cerebral infarction without residual deficits

== ENCOUNTER 2017-08-24 15:30 | Emergency (ER) | payer MEDICAID ==
[2017-08-24 15:31] VITALS: BMI 28.7
[2017-08-24 15:42] VITALS: TEMP 98.1
--- NOTE | 2017-08-24 16:32 | ED PDOC ---
HPI: General Adult Time Seen by Provider: 08/24/17 15:45 Chief Complaint (Nursing): Chest Pain Chief Complaint (Provider): Chest pain, alcohol abuse History/Exam Limitations: intoxication Additional Complaint(s): 52yo male with history of alcoholism, depression, brought to ER by EMS for evaluation of chest pain. Patient is intoxicated, somnolent but arousable in ER and due to his intoxicated state, is unable to provide a full HPI/ROS. Past Medical History Reviewed: Historical Data, Nursing Documentation, Vital Signs Vital Signs: Last Vital Signs Temp 98.1 F 08/25/17 04:48 Pulse 61 08/25/17 04:48 Resp 17 08/25/17 04:48 BP 160/94 H 08/25/17 04:48 Pulse Ox 95 08/25/17 06:22 - Medical History PMH: CAD, Depression, Fractures, HTN, Hypercholesterolemia, Hyperlipidemia, TIA Denies: Diabetes, Hepatitis, HIV, Chronic Kidney Disease, Seizures, Sexually Transmitted Disease - Surgical History Surgical History: No Surg Hx - Family History Family History: States: Unknown Family Hx, Hypertension Denies: [place], CAD - Immunization History Hx Tetanus Toxoid Vaccination: Yes - Home Medications Home Medications: Ambulatory Orders Medication Instructions Recorded Clopidogrel [Plavix] 75 mg PO DAILY #30 tab 06/24/16 Multivit-Minerals/Folic Acid 1 tab PO DAILY 11/28/16 [Centrum Multigummies] Aspirin [[place] Aspirin] 81 mg PO DAILY #30 tab.chew 05/01/17 Atorvastatin [Lipitor] 20 mg PO DAILY #30 tab 05/01/17 Escitalopram [Lexapro] 5 mg PO DAILY 30 Days #30 tab 05/01/17 hydroCHLOROthiazide [Hydrodiuril] 25 mg PO DAILY tab 05/01/17 oxyCODONE/Acetaminophen [Percocet 1 ea PO Q6H PRN #10 tab 05/14/17 5/325 mg Tab] Acetaminophen [Acetaminophen 8 650 mg PO Q8 #30 tablet.er 05/29/17 Hour] Naproxen 500 mg PO BID #20 tab 08/05/17 Carvedilol [Coreg] 3.125 mg PO Q12 #14 tab 08/14/17 Furosemide [Lasix] 20 mg PO BID #14 tab 08/14/17 Lisinopril [Zestril] 40 mg PO DAILY #7 tab 08/14/17 amLODIPine [Norvasc] 10 mg PO DAILY #7 tab 08/14/17 - Allergies Allergies/Adverse Reactions: Allergies Allergy/AdvReac Type Severity Reaction Status Date / Time No Known Allergies Allergy Verified 08/24/17 15:36 Review of Systems Review Of Systems: ROS cannot be obtained secondary to pt's inabilty to answer questions. (intoxicated) Cardiovascular: Positive for: Chest Pain Physical Exam - Reviewed Nursing Documentation Reviewed: Yes Vital Signs Reviewed: Yes - Physical Exam Head Exam: Positive for: ATRAUMATIC, NORMAL INSPECTION, NORMOCEPHALIC Skin: Positive for: Normal Color ENT: Positive for: Other (alcohol on breath) Cardiovascular/Chest: Positive for: Regular Rate, Rhythm Respiratory: Positive for: Normal Breath Sounds Gastrointestinal/Abdominal: Positive for: Soft. Negative for: Tenderness Neurologic/Psych: Positive for: Other (somnolent but arousable) - Laboratory Results Result Diagrams: 08/24/17 16:59 08/24/17 16:59 - ECG ECG: Positive for: Interpreted By Me, Viewed By Me ECG Rhythm: Positive for: Sinus Rhythm Interpretation Of ECG: Left atrial enlargement Rate: 89 O2 Sat by Pulse Oximetry: 98 (RA) Pulse Ox Interpretation: Normal Medical Decision Making Medical Decision Making: Impression: Alcohol intoxication, chest pain Plan: -- EKG -- Labs -- CXR Time: 1700 Patient resting in room and is in no acute distress. Signed out to Dr. Mcfarlane pending ER workup, clinical sobriety and disposition. Scribe Attestation: Documented by Linda Salazar, acting as a scribe for Jeni Callahan MD. Provider Attestation: All medical record entries made by the Scribe were at my direction and personally dictated by me. I have reviewed the chart and agree that the record accurately reflects my personal performance of the history, physical exam, medical decision making, and the department course for this patient. I have also personally directed, reviewed, and agree with the discharge instructions and disposition. Disposition - Clinical Impression Clinical Impression: Alcohol abuse with intoxication - Patient ED Disposition Is Patient to be Admitted: Transfer of Care - Disposition Disposition: Transfer of Care Disposition Time: 17:00 Condition: STABLE Instructions: Alcohol Abuse and Alcoholism (DC) Forms: [employer] (Kazakh) Patient Signed Over To: Gladys Mcfarlane
--- NOTE | 2017-08-24 16:46 | RAD ---
HISTORY: Chest pain. COMPARISON: 07/27/2017 FINDINGS: LUNGS: No active pulmonary disease. PLEURA: No significant pleural effusion identified, no pneumothorax apparent. CARDIOVASCULAR: No radiographic findings to suggest acute or significant cardiovascular disease. OSSEOUS STRUCTURES: No significant abnormalities. VISUALIZED UPPER ABDOMEN: Normal. OTHER FINDINGS: None. IMPRESSION: No active disease. No significant interval change compared to the prior examination(s).
[2017-08-24 17:03] LABS: BASO % 1.3 % (0.0-2.0); EOS # 0.1 K/uL (0.0-0.7); EOS % 2.1 % (0.0-4.0); HEMOGLOBIN 12.6 g/dL (12.0-18.0); LYMPH % 34.1 % (20.0-40.0); MEAN CELL VOLUME 91.7 fl (80.0-94.0); MEAN CORPUSCULAR HEMOGLOBIN 30.9 pg (27.0-31.0); MEAN CORPUSCULAR HGB CONC 33.8 g/dL (33.0-37.0); MEAN PLATELET VOLUME 7.1 fl (7.2-11.7); MONO # 0.5 K/uL (0.0-0.8); MONO % 16.3 % (0.0-10.0); NEUT # 1.3 K/uL (1.8-7.0); NEUT % 46.2 % (50.0-75.0); NRBC % 0.1 % (0.0-0.0); RBC 4.08 Mil/uL (4.40-5.90); RED CELL DISTRIBUTION WIDTH 14.7 % (11.5-14.5); WHITE BLOOD COUNT 2.8 K/uL (4.8-10.8)
--- NOTE | 2017-08-24 17:21 | ED PDOC ---
- Laboratory Results Result Diagrams: 08/24/17 16:59 08/24/17 16:59 - ECG O2 Sat by Pulse Oximetry: 98 (RA) Pulse Ox Interpretation: Normal Medical Decision Making Medical Decision Making: Time: 1700 Patient signed out to me by Dr. Callahan pending ER workup, clinical sobriety. Time: 1710 CXR FINDINGS: LUNGS: No active pulmonary disease. PLEURA: No significant pleural effusion identified, no pneumothorax apparent. CARDIOVASCULAR: No radiographic findings to suggest acute or significant cardiovascular disease. OSSEOUS STRUCTURES: No significant abnormalities. VISUALIZED UPPER ABDOMEN: Normal. OTHER FINDINGS: None. IMPRESSION: No active disease. No significant interval change compared to the prior examination(s). Time: [address] Allen pending sobriety. Scribe Attestation: Documented by Linda Salazar, acting as a scribe for Gladys Mcfarlane MD. Provider Attestation: All medical record entries made by the Scribe were at my direction and personally dictated by me. I have reviewed the chart and agree that the record accurately reflects my personal performance of the history, physical exam, medical decision making, and the department course for this patient. I have also personally directed, reviewed, and agree with the discharge instructions and disposition. Disposition - Clinical Impression Clinical Impression: Alcohol abuse with intoxication - POA Present On Arrival: Falls Or Trauma (risk) - Disposition Disposition: Transfer of Care Disposition Time: 00:00 Condition: STABLE Instructions: Alcohol Abuse and Alcoholism (DC) Forms: [employer] (Togolese) Patient Signed Over To: Pedro Allen Handoff Comments: pending sobriety
[2017-08-24 17:39] LABS: ALB/GLOB RATIO 1.1 (1.0-2.1); ALBUMIN 4.1 g/dL (3.5-5.0); ALT/SGPT 59 U/L (21-72); AST/SGOT 172 U/L (17-59); BLOOD UREA NITROGEN 13 mg/dl (9-20); CALCIUM 8.6 mg/dL (8.4-10.2); GFR AFRICAN-AMERICAN > 60; GFR NON-AFRICAN AMERICAN > 60
[2017-08-24] MEDS ORDERED: Multivitamin (MVI) 10 ML, Thiamine 100 MG, Folic Acid 1 MG in Sodium Chloride 0.9% 1,00... IV ONE (17:54)
[2017-08-24 19:23] LABS: BENZODIAZEPINES, UR NEGATIVE (NEGATIVE)
[2017-08-24 19:25] LABS: BARBITURATES, UR NEGATIVE (NEGATIVE); OPIATES, UR NEGATIVE (NEGATIVE); PHENCYCLIDINE, UR NEGATIVE (NEGATIVE)
[2017-08-24 19:33] VITALS: RESP 17
--- NOTE | 2017-08-25 00:26 | ED PDOC ---
- Laboratory Results Result Diagrams: 08/24/17 16:59 08/24/17 16:59 - ECG O2 Sat by Pulse Oximetry: 95 Medical Decision Making Medical Decision Makin:00 Patient endorsed to me by Dr. Mcfarlane pending sobriety. 04:39 Patient AAO x3 and has steayd gait and fluent speech. Patient clinically sober for discharge. Scribe Attestation: Documented by Yung Kelly, acting as a scribe for Pedro Allen MD. Provider Scribe Attestation: All medical record entries made by the Scribe were at my direction and personally dictated by me. I have reviewed the chart and agree that the record accurately reflects my personal performance of the history, physical exam, medical decision making, and the department course for this patient. I have also personally directed, reviewed, and agree with the discharge instructions and disposition. Disposition Counseled Patient/Family Regarding: Studies Performed, Diagnosis, Need For Followup - Clinical Impression Clinical Impression: Alcohol abuse with intoxication - POA Present On Arrival: None - Disposition Disposition: Routine/Home Disposition Time: 04:40 Condition: STABLE Instructions: Alcohol Abuse and Alcoholism (DC) Forms: [employer] (French)
[2017-08-25 04:59] VITALS: BP 160/94
--- NOTE | 2017-08-25 10:28 | CARD ---
APPROVED REPORT EKG Measurement Heart [id number] <Conclusion> Normal sinus rhythm Moderate voltage criteria for LVH, may be normal variant Nonspecific T wave abnormality Abnormal ECG
[2017-08-25 16:25] VITALS: PULSE 89; O2SAT 98
== END 2017-08-25 06:05 | disposition home or self-care (01) ==
LOC: H.ER 15:30
DX: F10.129 Alcohol abuse with intoxication, unspecified (principal); I10 Essential (primary) hypertension; Z86.59 Personal history of other mental and behavioral disorders; Z79.82 Long term (current) use of aspirin; Z86.73 Personal history of transient ischemic attack (TIA), and cerebral infarction without residual deficits; E78.00 Pure hypercholesterolemia, unspecified
CPT/HCPCS: 71045; 80053; 80320; 80324; 80345; 80346; 80349; 80353; 80358; 80361; 83992; 84484; 85025; 93005; 96374; 99285; J3411; J7030

== ENCOUNTER 2017-09-08 11:56 | Emergency (ER) | payer MEDICAID ==
[2017-09-08 12:03] VITALS: TEMP 97
[2017-09-08 12:04] VITALS: BMI 24.3
--- NOTE | 2017-09-08 12:21 | ED PDOC ---
HPI: Psych/Substance Abuse Time Seen by Provider: 09/08/17 12:08 Chief Complaint (Nursing): Alcohol Ingestion Chief Complaint (Provider): Alcohol Ingestion History Per: Patient, EMS, Other (Aramis HERNANDEZ) History/Exam Limitations: no limitations Onset/Duration Of Symptoms: Mins (prior to arrival) Current Symptoms Are (Timing): Still Present Additional Complaint(s): 52 year old male presents to the emergency department via EMS after he was found sleeping in the streets by Aramis HERNANDEZ. Patient admits to drinking 2 pints of liquor and a few beers earlier. He offers no complaints at this time, denying headache, chest pain, shortness of breath, visual changes, and trauma. Patient notes that he has not been taking his blood pressure medication for an unknown amount of time. PMD: none provided Against Medical Advice - AMA Patient Left Against Medical Advice: The patient declines admission to the hospital and wishes to leave the Emergency Department. This action is against my medical advice. This decision was made with informed refusal. The patient was told that admission to the hospital is necessary. Explanation of the reasons why were discussed. The risks of leaving were explained to the patient and include, but are not limited to, worsening of known or currently unknown conditions, permanent disability and from undiagnosed or untreated conditions. The patient has the capacity to make this informed decision and understands my explanation of the current medical problem and risks of leaving. The patient voluntarily accepts these risks and signed an AMA form documenting our conversation. The patient was given the opportunity to ask questions and reconsider. The patient was encouraged to return to the Emergency Department at any time for further care. Past Medical History Reviewed: Historical Data, Nursing Documentation, Vital Signs Vital Signs: Last Vital Signs Temp 97 F L 09/08/17 12:02 Pulse 82 09/08/17 12:02 Resp BP 147/114 H 09/08/17 12:02 Pulse Ox 99 09/08/17 12:02 - Medical History PMH: CAD, Depression, Fractures, HTN, Hypercholesterolemia, Hyperlipidemia, TIA Denies: Diabetes, Hepatitis, HIV, Chronic Kidney Disease, Seizures, Sexually Transmitted Disease - Surgical History Other surgeries: ORIF JAW 2014. ORIF right ankle Apr 2017 - Family History Family History: States: Hypertension Denies: [place], CAD - Social History Current smoker - smoking cessation education provided: Yes (heavy, > 10 cigarettes daily) Alcohol: > 2 Drinks/Day Drugs: Denies - Immunization History Hx Tetanus Toxoid Vaccination: Yes - Home Medications Home Medications: Ambulatory Orders Medication Instructions Recorded Clopidogrel [Plavix] 75 mg PO DAILY #30 tab 06/24/16 Multivit-Minerals/Folic Acid 1 tab PO DAILY 11/28/16 [Centrum Multigummies] Aspirin [[place] Aspirin] 81 mg PO DAILY #30 tab.chew 05/01/17 Atorvastatin [Lipitor] 20 mg PO DAILY #30 tab 05/01/17 Escitalopram [Lexapro] 5 mg PO DAILY 30 Days #30 tab 05/01/17 hydroCHLOROthiazide [Hydrodiuril] 25 mg PO DAILY tab 05/01/17 oxyCODONE/Acetaminophen [Percocet 1 ea PO Q6H PRN #10 tab 05/14/17 5/325 mg Tab] Acetaminophen [Acetaminophen 8 650 mg PO Q8 #30 tablet.er 05/29/17 Hour] Naproxen 500 mg PO BID #20 tab 08/05/17 Carvedilol [Coreg] 3.125 mg PO Q12 #14 tab 08/14/17 Furosemide [Lasix] 20 mg PO BID #14 tab 08/14/17 Lisinopril [Zestril] 40 mg PO DAILY #7 tab 08/14/17 amLODIPine [Norvasc] 10 mg PO DAILY #7 tab 08/14/17 - Allergies Allergies/Adverse Reactions: Allergies Allergy/AdvReac Type Severity Reaction Status Date / Time No Known Allergies Allergy Verified 08/24/17 15:36 Review of Systems ROS Statement: Except As Marked, All Systems Reviewed And Found Negative Constitutional: Negative for: Other (trauma) Eyes: Negative for: Vision Change Cardiovascular: Negative for: Chest Pain Respiratory: Negative for: Shortness of Breath Neurological: Positive for: Other (alcohol intoxication). Negative for: Headache Physical Exam - Reviewed Nursing Documentation Reviewed: Yes Vital Signs Reviewed: Yes - Physical Exam Appears: Positive for: No Acute Distress Head Exam: Positive for: ATRAUMATIC, NORMOCEPHALIC Skin: Positive for: Normal Color, Warm, Dry Eye Exam: Positive for: Normal appearance ENT: Positive for: Normal ENT Inspection Neck: Positive for: Normal, Painless ROM, Supple Cardiovascular/Chest: Positive for: Regular Rate, Rhythm. Negative for: Murmur Respiratory: Positive for: Normal Breath Sounds. Negative for: Accessory Muscle Use, Respiratory Distress Gastrointestinal/Abdominal: Positive for: Normal Exam, Soft. Negative for: Tenderness Back: Positive for: Normal Inspection. Negative for: L CVA Tenderness, R CVA Tenderness, Vertebral Tenderness Extremity: Positive for: Normal ROM. Negative for: Pedal Edema, Calf Tenderness Neurologic/Psych: Positive for: Alert, Oriented, Other (slurred speech, alcohol on breath) - ECG O2 Sat by Pulse Oximetry: 99 (RA) Pulse Ox Interpretation: Normal Medical Decision Making Medical Decision Making: Initial Impression: Alcohol intoxication Time: 12:19 Initial Plan: --Alcohol serum --Finger stick glucose 12:24 Blood pressure repeated at 145/98. 12:41 Accu check glucose: 80 13:20 Alcohol level: 420. Patient is medically within limits except his intoxication. He is currently still pending clinical sobriety. 13:55 Patient seem ambulating to bathroom. 1520 Sleeping comfortably. No distress. 1859 Pt. in no distress. Walking with steady gait. No slurred speech. Requesting to be discharged. Denies chest pain, SOB. Offers no complaints. Repeat BP: 172/118. Pt. states he did not take his BP meds today. States he takes 3 meds and has it at home. Offered stabilization of BP in ED but refused and states he wants to be discharged. Pt. is Alert, Awake, and oriented x 3. Pt. states he will sign out AMA. Scribe Attestation: Documented by Smita Lopez, acting as a scribe for Flip Hodges PA-C. Provider Scribe Attestation: All medical entries made by the Scribe were at my direction and personally dictated by me. I have reviewed the chart and agree that the record accurately reflects my personal performance of the history, physical exam, medical decision making, and the department course for this patient. I have also personally directed, reviewed, and agree with the discharge instructions and disposition. Disposition - Clinical Impression Clinical Impression: Alcohol intoxication, Hypertension, Left against medical advice - Patient ED Disposition Is Patient to be Admitted: No - Disposition Referrals: [facility] [Outside] [facility] [Outside] Disposition: Against Medical Advice Disposition Time: 19:00 Condition: STABLE Instructions: High Blood Pressure (DC), Alcohol Abuse and Alcoholism (DC), Leaving Against Medical Advice Forms: [employer] (Emirati)
[2017-09-08 12:24] VITALS: RESP 18
[2017-09-08 19:26] VITALS: BP 172/118; PULSE 85
[2017-09-08 23:34] VITALS: O2SAT 99
== END 2017-09-08 19:45 | disposition left against medical advice (07) ==
LOC: H.ER 11:56
DX: F10.129 Alcohol abuse with intoxication, unspecified (principal); E78.00 Pure hypercholesterolemia, unspecified; F32.9 Major depressive disorder, single episode, unspecified; I10 Essential (primary) hypertension; I25.10 Atherosclerotic heart disease of native coronary artery without angina pectoris; Y90.8 Blood alcohol level of 240 mg/100 ml or more; Z79.82 Long term (current) use of aspirin; Z86.73 Personal history of transient ischemic attack (TIA), and cerebral infarction without residual deficits; F17.210 Nicotine dependence, cigarettes, uncomplicated

== ENCOUNTER 2018-04-06 13:56 | Emergency (ER) | payer MEDICAID, OTHER ==
[2018-04-06 13:56] VITALS: BMI 22.8
[2018-04-06 14:06] VITALS: TEMP 98
[2018-04-06] MEDS ORDERED: Labetalol 5mg/ml (4ml) IVP STA (14:30)
--- NOTE | 2018-04-06 14:41 | ED PDOC ---
HPI: Chest Pain Time Seen by Provider: 04/06/18 14:19 Chief Complaint (Nursing): Chest Pain Chief Complaint (Provider): Chest Pain History Per: Patient History/Exam Limitations: intoxication Onset/Duration Of Symptoms: Hrs Current Symptoms Are (Timing): Still Present Additional Complaint(s): Patient is a 52 y/o male with a PMHx of HTN, hypercholesterolemia, and fractures who was brought into the ED for evaluation of chest pain. Patient was found intoxicated and lethargic. Patient shows signs of head injury and nose bleed. Patient claims to also have a headache, incontinence, and left shoulder pain. Patient is unable to provide further information on events leading to ED visit due to intoxication. Patient claims to have drank heavily today. Patient is well known to hospital for alcohol abuse and HTN. Of note, patient was recently admitted for detox at [facility]. PCP: None Provided Past Medical History Reviewed: Historical Data, Nursing Documentation, Vital Signs Vital Signs: Last Vital Signs Temp 98.0 F 04/06/18 14:04 Pulse 89 04/06/18 14:04 Resp 16 04/06/18 14:04 BP 195/118 H 04/06/18 14:04 Pulse Ox 100 04/06/18 14:04 - Medical History PMH: Fractures, HTN, Hypercholesterolemia Denies: Diabetes, Hepatitis, HIV, Chronic Kidney Disease, Seizures, Sexually Transmitted Disease - Surgical History Surgical History: No Surg Hx - Family History Family History: States: Hypertension Denies: [place], CAD - Social History Alcohol: > 2 Drinks/Day - Immunization History Hx Tetanus Toxoid Vaccination: Yes Hx Influenza Vaccination: No Hx Pneumococcal Vaccination: No - Home Medications Home Medications: Ambulatory Orders Medication Instructions Recorded RX: Multivit-Minerals/Folic Acid 1 tab PO DAILY 11/28/16 [Centrum Multigummies] RX: Acetaminophen [Acetaminophen 8 650 mg PO Q6 PRN #30 tablet.er 09/25/17 Hour] RX: Aspirin [Aspirin Chewable] 81 mg PO DAILY #30 ctb 09/25/17 RX: Carvedilol [Coreg] 3.125 mg PO Q12 #60 tab 09/25/17 RX: Escitalopram [Lexapro] 5 mg PO DAILY #30 tab 09/25/17 RX: Lisinopril [Zestril] 40 mg PO DAILY #30 tab 09/25/17 amLODIPine [Norvasc] 5 mg PO DAILY #10 tab 11/10/17 RX: Aspirin [Aspirin Chewable] 81 mg PO DAILY #30 chew 03/13/18 RX: Atorvastatin [Lipitor] 20 mg PO DAILY #30 tab 03/13/18 RX: Lisinopril [Zestril] 5 mg PO DAILY #30 tab 03/13/18 RX: Mirtazapine [Remeron] 15 mg PO HS #30 tab 03/13/18 RX: amLODIPine [Norvasc] 10 mg PO DAILY #30 tab 03/13/18 RX: traZODone [Desyrel] 50 mg PO HS PRN #30 tab 03/13/18 - Allergies Allergies/Adverse Reactions: Allergies Allergy/AdvReac Type Severity Reaction Status Date / Time No Known Allergies Allergy Verified 04/06/18 14:04 Review of Systems ROS Statement: Except As Marked, All Systems Reviewed And Found Negative (as per HPI) ENT: Positive for: Other (Nose Bleed) Cardiovascular: Positive for: Chest Pain Genitourinary Male: Positive for: Incontinence Musculoskeletal: Positive for: Shoulder Pain (left) Neurological: Positive for: Headache Physical Exam - Reviewed Nursing Documentation Reviewed: Yes Vital Signs Reviewed: Yes - Physical Exam Appears: Positive for: No Acute Distress (intoxicated) Head Exam: Positive for: ATRAUMATIC, NORMAL INSPECTION (small hematoma on right, posterior scalp), NORMOCEPHALIC Skin: Positive for: Normal Color (flushed facial skin) Eye Exam: Positive for: Conjunctival injection ENT: Positive for: Normal ENT Inspection (dry mucous membrane), Other (dried blood in narea, no active bleeding) Neck: Positive for: Painless ROM, Supple Cardiovascular/Chest: Positive for: Regular Rate, Rhythm Respiratory: Positive for: Normal Breath Sounds. Negative for: Respiratory Distress Gastrointestinal/Abdominal: Positive for: Soft Back: Positive for: Normal Inspection Extremity: Positive for: Normal ROM. Negative for: Deformity Lymphatic: Negative for: Adenopathy Neurologic/Psych: Positive for: Alert (slurred speech). Negative for: Mo tor/Sensory Deficits - Laboratory Results Result Diagrams: 04/06/18 14:15 04/06/18 14:15 - ECG O2 Sat by Pulse Oximetry: 100 (RA) Pulse Ox Interpretation: Normal Medical Decision Making Medical Decision Making: Time: 1418 Impression: Alcohol intoxication, HTN, and head injury. Noncompliant with medication. Plan: CT Head w/o Contrast CT Maxillofacial w/o Contrast EKG Alcohol Serum CMP Troponin I CBC Chest Portable [Rad] Glucose, POC Routine Sodium Chloride 0.9% 1000 ml MVI 10 ml Thiamine 100 mg Folic Acid 1 mg Trandate 20 mg IVP Shoulder Left [Rad] Time: 1451 Chest X-Ray FINDINGS: LUNGS: No active pulmonary disease. PLEURA: No significant pleural effusion identified, no pneumothorax apparent. CARDIOVASCULAR: No aortic atherosclerotic calcification present. Heart size is borderline enlarged. There is a slight left ventricular configuration. OSSEOUS STRUCTURES: No significant abnormalities. VISUALIZED UPPER ABDOMEN: Normal. OTHER FINDINGS: None. IMPRESSION: Borderline cardiomegaly with slight left ventricular configuration. Time:[address] FINDINGS: HEMORRHAGE: No acute parenchymal, subarachnoid or extra-axial hemorrhage. BRAIN: Moderate diffuse/confluent chronic periventricular white matter ischemic changes again seen extending peripherally into the deep and subcortical white matter both cerebral hemispheres. Changes are most conspicuous in the cony the frontal horn white matter. Additionally, there are multiple chronic appearing bilateral basal nuclei lacunar type infarcts. There may also be a few chronic brainstem lacunar type infarcts as well. Moderate generalized volume loss. VENTRICLES: No obstructive hydrocephalus. CALVARIUM: No evidence of acute calvarial fractures. Old healed fracture deformity left orbital floor. PARANASAL SINUSES: Mild mucosal thickening noted within a few left-sided ethmoid air cells.. MASTOID AIR CELLS: Unremarkable as visualized. No inflammatory changes. OTHER FINDINGS: None. IMPRESSION: No evidence of acute intracranial hemorrhage. Moderate chronic white matter ischemic changes with multiple chronic bilateral basal nuclei lacunar type infarcts. There may also be a few chronic brainstem lacunar is. Moderate generalized volume loss. Old healed fracture deformity left of orbital floor. Time: [address] FINDINGS: NASAL BONES: Chronic bilateral nasal bone fracture deformities are present. Mild leftward deviation the of the nasal septum ORBITS: Old healed fracture deformity left orbital floor with herniation of small amount of intraorbital fat inferiorly through the defect. The left inferior rectus muscle also appears slightly inferiorly displaced.. Old fracture deformity left lamina papyracea... Orbital contents otherwise unremarkable. Mild right sided premaxillary and periorbital soft tissue swelling with extension medially over the right nasal bones. The PARANASAL SINUSES/ MASTOIDS: Polypoid like mucosal thickening inferior margins both maxillary antra.. Minor mucosal thickening seen within few ethmoid air cells. MAXILLA: Maxilla appears intact. Anterior nasal spine of the maxilla also intact.. MANDIBLE/ TEMPOROMANDIBULAR JOINTS: Unremarkable. SKULL BASE: Unremarkable. TEMPORAL BONES: Middle ears and mastoid grossly unremarkable. OTHER FINDINGS: None. IMPRESSION: Old healed fracture deformity left orbital floor with herniation of small amount of intraorbital fat inferiorly through the defect. The left inferior rectus muscle also appears slightly inferiorly displaced.. Old fracture deformity left lamina papyracea... Orbital contents otherwise unremarkable.. Old fracture deformities of the nasal bones.. There appears to be mild right sided premaxillary and periorbital soft tissue swelling which extends medially over the right nasal bones. Time: 1646 Blood alcohol level elevated, otherwise, no clinically significant lab abnormalities. Blood pressure improved prior to IV Labetalol was given. 2000 Pt ate in ER and in no distress. BP continues to be stable without ER medication. Stable for discharge. Scribe Attestation: Documented by Jacobo Del Angel, acting as a scribe for provider Gladys Mcfarlane MD All medical record entries made by the Scribe were at my direction and personally dictated by me. I have reviewed the chart and agree that the record accurately reflects my personal performance of the history, physical exam, medical decision making, and the department course for this patient. I have also personally directed, reviewed, and agree with the discharge instructions and disposition. Disposition - Clinical Impression Clinical Impression: ETOH abuse, Hypertension - Disposition Referrals: [facility] [Outside] Disposition: Routine/Home Disposition Time: 20:00 Condition: STABLE Instructions: Alcohol Abuse and Alcoholism (DC) Print Language: URUGUAYAN
--- NOTE | 2018-04-06 14:54 | RAD ---
Date of service: 04/06/2018 HISTORY: chest pain COMPARISON: Comparison made with chest radiograph dated 09/24/2017 FINDINGS: LUNGS: No active pulmonary disease. PLEURA: No significant pleural effusion identified, no pneumothorax apparent. CARDIOVASCULAR: No aortic atherosclerotic calcification present. Heart size is borderline enlarged. There is a slight left ventricular configuration. OSSEOUS STRUCTURES: No significant abnormalities. VISUALIZED UPPER ABDOMEN: Normal. OTHER FINDINGS: None. IMPRESSION: Borderline cardiomegaly with slight left ventricular configuration.
[2018-04-06] MEDS ORDERED: Multivitamin (MVI) 10 ML, Thiamine 100 MG, Folic Acid 1 MG in Sodium Chloride 0.9% 1,00... IV ONE (15:00)
[2018-04-06 15:44] LABS: BASO # 0.1 K/uL (0.0-0.2); BASO % 1.5 % (0.0-2.0); EOS # 0.1 K/uL (0.0-0.7); EOS % 1.5 % (0.0-4.0); HEMOGLOBIN 12.7 g/dL (12.0-18.0); LYMPH # 0.7 K/uL (1.0-4.3); MEAN CELL VOLUME 94.6 fl (80.0-94.0); MEAN CORPUSCULAR HEMOGLOBIN 31.5 pg (27.0-31.0); MEAN CORPUSCULAR HGB CONC 33.3 g/dL (33.0-37.0); MEAN PLATELET VOLUME 7.2 fl (7.2-11.7); MONO # 0.6 K/uL (0.0-0.8); MONO % 17.3 % (0.0-10.0); NEUT # 2.2 K/uL (1.8-7.0); NEUT % 60.7 % (50.0-75.0); NRBC % 0.3 % (0.0-0.0); RBC 4.04 Mil/uL (4.40-5.90); RED CELL DISTRIBUTION WIDTH 14.2 % (11.5-14.5); WHITE BLOOD COUNT 3.7 K/uL (4.8-10.8)
[2018-04-06 16:20] LABS: ALB/GLOB RATIO 1.2 (1.0-2.1); ALBUMIN 4.3 g/dL (3.5-5.0); ALT/SGPT 63 U/L (21-72); AST/SGOT 168 U/L (17-59); BLOOD UREA NITROGEN 11 mg/dl (9-20); CALCIUM 8.6 mg/dL (8.4-10.2); GFR NON-AFRICAN AMERICAN > 60
--- NOTE | 2018-04-06 16:22 | CT ---
Date of service: 04/06/2018 PROCEDURE: CT HEAD WITHOUT CONTRAST. HISTORY: Head injury, concurrent CT scan of the maxillofacial skeleton and prior CT scan of the brain [id number]. ETOH COMPARISON: Comparison made with TECHNIQUE: Axial computed tomography images were obtained through the head/brain without intravenous contrast. Radiation dose: Total exam DLP = 830.37 mGy-cm. This CT exam was performed using one or more of the following dose reduction techniques: Automated exposure control, adjustment of the mA and/or kV according to patient size, and/or use of iterative reconstruction technique. FINDINGS: HEMORRHAGE: No acute parenchymal, subarachnoid or extra-axial hemorrhage. BRAIN: Moderate diffuse/confluent chronic periventricular white matter ischemic changes again seen extending peripherally into the deep and subcortical white matter both cerebral hemispheres. Changes are most conspicuous in the cony the frontal horn white matter. Additionally, there are multiple chronic appearing bilateral basal nuclei lacunar type infarcts. There may also be a few chronic brainstem lacunar type infarcts as well. Moderate generalized volume loss. VENTRICLES: No obstructive hydrocephalus. CALVARIUM: No evidence of acute calvarial fractures. Old healed fracture deformity left orbital floor. PARANASAL SINUSES: Mild mucosal thickening noted within a few left-sided ethmoid air cells.. MASTOID AIR CELLS: Unremarkable as visualized. No inflammatory changes. OTHER FINDINGS: None. IMPRESSION: No evidence of acute intracranial hemorrhage. Moderate chronic white matter ischemic changes with multiple chronic bilateral basal nuclei lacunar type infarcts. There may also be a few chronic brainstem lacunar is. Moderate generalized volume loss. Old healed fracture deformity left of orbital floor.
--- NOTE | 2018-04-06 16:29 | CT ---
Date of service: 04/06/2018 PROCEDURE: CT MAXILLOFACIAL BONES WITHOUT CONTRAST HISTORY: Facial injury ETOH COMPARISON: Comparison made with concurrent CT scan of the maxillofacial skeleton as well as the prior CT scan maxillofacial skeleton 05/11/2017.. TECHNIQUE: Contiguous axial CT images of the maxillofacial bones were obtained. Coronal and sagittal reformats were generated. Radiation dose: Total exam DLP = 807.42 mGy-cm. This CT exam was performed using one or more of the following dose reduction techniques: Automated exposure control, adjustment of the mA and/or kV according to patient size, and/or use of iterative reconstruction technique. FINDINGS: NASAL BONES: Chronic bilateral nasal bone fracture deformities are present. Mild leftward deviation the of the nasal septum ORBITS: Old healed fracture deformity left orbital floor with herniation of small amount of intraorbital fat inferiorly through the defect. The left inferior rectus muscle also appears slightly inferiorly displaced.. Old fracture deformity left lamina papyracea... Orbital contents otherwise unremarkable. Mild right sided premaxillary and periorbital soft tissue swelling with extension medially over the right nasal bones. The PARANASAL SINUSES/ MASTOIDS: Polypoid like mucosal thickening inferior margins both maxillary antra.. Minor mucosal thickening seen within few ethmoid air cells. MAXILLA: Maxilla appears intact. Anterior nasal spine of the maxilla also intact.. MANDIBLE/ TEMPOROMANDIBULAR JOINTS: Unremarkable. SKULL BASE: Unremarkable. TEMPORAL BONES: Middle ears and mastoid grossly unremarkable. OTHER FINDINGS: None. IMPRESSION: Old healed fracture deformity left orbital floor with herniation of small amount of intraorbital fat inferiorly through the defect. The left inferior rectus muscle also appears slightly inferiorly displaced.. Old fracture deformity left lamina papyracea... Orbital contents otherwise unremarkable.. Old fracture deformities of the nasal bones.. There appears to be mild right sided premaxillary and periorbital soft tissue swelling which extends medially over the right nasal bones..
--- NOTE | 2018-04-06 18:37 | RAD ---
PROCEDURE: Radiographs of the Left Shoulder HISTORY: shoulder pain COMPARISON: Chest x-ray performed earlier the same day. FINDINGS: BONES: The distal left clavicle appears deviated superiorly. No acute displaced fracture. The distal clavicle and underlying ribs appear intact. JOINTS: Acromioclavicular separation measures approximately 1.1 cm in diameter. The coracoclavicular joint space is widened measuring approximately 2.4 cm. SOFT TISSUES: Soft tissue swelling. No evidence of radiopaque foreign body. IMPRESSION: The distal clavicle appears deviated superiorly. AC joint separation measuring approximately 1.1 cm in diameter. Coracoclavicular joint space widened measuring approximately 2.4 cm. MRI may be considered for further assessment if indicated. Study marked for PA review.
--- NOTE | 2018-04-06 18:54 | CARD ---
APPROVED REPORT Date of service: 04/06/2018 EKG Measurement Heart [id number] <Conclusion> Normal sinus rhythm Possible Left atrial enlargement Left ventricular hypertrophy Nonspecific T wave abnormality Abnormal ECG
[2018-04-06 22:13] VITALS: BP 158/96; PULSE 86; RESP 18
[2018-04-08 15:15] VITALS: O2SAT 100
== END 2018-04-06 22:22 | disposition home or self-care (01) ==
LOC: H.ER 13:56
DX: I10 Essential (primary) hypertension (principal); F10.129 Alcohol abuse with intoxication, unspecified
CPT/HCPCS: 70450; 70486; 71045; 73030; 80053; 80320; 82948; 84484; 85025; 93005; 96374; 99285; J3411; J7030

== ENCOUNTER 2018-05-07 18:47 | Emergency (ER) | payer MEDICAID ==
[2018-05-07 18:47] VITALS: BMI 22.8
--- NOTE | 2018-05-07 21:09 | ED PDOC ---
HPI: Psych/Substance Abuse Time Seen by Provider: 05/07/18 19:11 Chief Complaint (Nursing): Alcohol Ingestion Chief Complaint (Provider): Mid sternal chest pain History Per: Patient History/Exam Limitations: no limitations Additional Complaint(s): 52 year old male presents to the ED complaining of midsternal chest pain. Patient also admits to drinking alcohol. He further reports people have been following him around telling him to kill himself. Denies shortness of breath, leg pain, hemoptysis, suicidal ideation, or homicidal ideation. PMD: none provided Past Medical History Reviewed: Historical Data, Nursing Documentation, Vital Signs Vital Signs: Last Vital Signs Temp 98.1 F 05/07/18 18:58 Pulse 80 05/07/18 18:58 Resp 19 05/07/18 18:58 BP 164/121 H 05/07/18 18:58 Pulse Ox 98 05/07/18 18:58 - Medical History PMH: Fractures, HTN, Hypercholesterolemia Denies: Diabetes, Hepatitis, HIV, Chronic Kidney Disease, Seizures, Sexually Transmitted Disease - Surgical History Surgical History: No Surg Hx - Family History Family History: States: Unknown Family Hx, Hypertension Denies: [place], CAD - Immunization History Hx Tetanus Toxoid Vaccination: Yes Hx Influenza Vaccination: No Hx Pneumococcal Vaccination: No - Home Medications Home Medications: Ambulatory Orders Medication Instructions Recorded Multivit-Minerals/Folic Acid 1 tab PO DAILY 11/28/16 [Centrum Multigummies] Acetaminophen [Acetaminophen 8 650 mg PO Q6 PRN #30 tablet.er 09/25/17 Hour] Aspirin [Aspirin Chewable] 81 mg PO DAILY #30 ctb 09/25/17 Carvedilol [Coreg] 3.125 mg PO Q12 #60 tab 09/25/17 Escitalopram [Lexapro] 5 mg PO DAILY #30 tab 09/25/17 Lisinopril [Zestril] 40 mg PO DAILY #30 tab 09/25/17 amLODIPine [Norvasc] 5 mg PO DAILY #10 tab 11/10/17 Aspirin [Aspirin Chewable] 81 mg PO DAILY #30 chew 03/13/18 Atorvastatin [Lipitor] 20 mg PO DAILY #30 tab 03/13/18 Lisinopril [Zestril] 5 mg PO DAILY #30 tab 03/13/18 Mirtazapine [Remeron] 15 mg PO HS #30 tab 03/13/18 amLODIPine [Norvasc] 10 mg PO DAILY #30 tab 03/13/18 traZODone [Desyrel] 50 mg PO HS PRN #30 tab 03/13/18 - Allergies Allergies/Adverse Reactions: Allergies Allergy/AdvReac Type Severity Reaction Status Date / Time No Known Allergies Allergy Verified 04/06/18 14:04 Review of Systems ROS Statement: Except As Marked, All Systems Reviewed And Found Negative Cardiovascular: Positive for: Chest Pain (Midsternal) Respiratory: Negative for: Shortness of Breath, Hemoptysis Musculoskeletal: Negative for: Leg Pain Psych: Positive for: Other (Hallucinations). Negative for: Suicidal ideation (and homicidal ideation) Physical Exam - Reviewed Nursing Documentation Reviewed: Yes Vital Signs Reviewed: Yes - Physical Exam Appears: Positive for: No Acute Distress (Alcohol on breath) Head Exam: Positive for: ATRAUMATIC, NORMAL INSPECTION, NORMOCEPHALIC Skin: Positive for: Normal Color, Warm, Dry Eye Exam: Positive for: Normal appearance ENT: Positive for: Normal ENT Inspection Neck: Positive for: Normal, Painless ROM Cardiovascular/Chest: Positive for: Regular Rate, Rhythm Respiratory: Positive for: Normal Breath Sounds. Negative for: Wheezing, Respiratory Distress Gastrointestinal/Abdominal: Positive for: Normal Exam, Soft. Negative for: Tenderness, Mass Extremity: Positive for: Normal ROM. Negative for: Calf Tenderness (bilaterally) Neurologic/Psych: Positive for: Alert, Oriented, Other (Slurred speech). Negative for: Motor/Sensory Deficits - Laboratory Results Result Diagrams: 05/07/18 21:19 05/07/18 21:19 - ECG ECG Rhythm: Positive for: Sinus Rhythm. Negative for: ST/T Changes Rate: 75 O2 Sat by Pulse Oximetry: 98 (RA) Pulse Ox Interpretation: Normal - Radiology X-Ray: Interpreted by Tn X-Ray Interpretation: No Acute Disease, Mediastinum (no widened mediastinum), Other (CXR is unchanged from 04/06/2018) Medical Decision Making Medical Decision Making: Initial Impression: Chest pain and Etoh Initial Plan: --ECG --Alcohol serum stat --CMP --Drug screen --Troponin --CBC --Chest X-ray --Urinalysis ----- Scribe Attestation: Documented by Donald Rondon acting as a scribe for Flip LOPEZ Provider Scribe Attestation: All medical record entries made by the Scribe were at my direction and personally dictated by me. I have reviewed the chart and agree that the record accurately reflects my personal performance of the history, physical exam, medical decision making, and the department course for this patient. I have also personally directed, reviewed, and agree with the discharge instructions and disposition. Disposition - Clinical Impression Clinical Impression: Alcohol intoxication, Hypertension - Patient ED Disposition Is Patient to be Admitted: Transfer of Care (Signed out to Connie ALLEN pending repeat labs, crisis, sobriety) - Disposition Referrals: Non [facility] Provider, [Primary Care Provider] - Disposition Time: 00:00 Condition: FAIR Forms: [email or web address] (Estonian)
[2018-05-07 21:25] LABS: BASO % 1.5 % (0.0-2.0); EOS # 0.1 K/uL (0.0-0.7); EOS % 3.1 % (0.0-4.0); HEMOGLOBIN 12.3 g/dL (12.0-18.0); LYMPH % 32.7 % (20.0-40.0); MEAN CELL VOLUME 93.3 fl (80.0-94.0); MEAN CORPUSCULAR HEMOGLOBIN 30.8 pg (27.0-31.0); MEAN CORPUSCULAR HGB CONC 33.1 g/dL (33.0-37.0); MEAN PLATELET VOLUME 7.5 fl (7.2-11.7); MONO # 0.4 K/uL (0.0-0.8); NEUT # 1.5 K/uL (1.8-7.0); NEUT % 48.7 % (50.0-75.0); NRBC % 0.5 % (0.0-0.0); RBC 4.01 Mil/uL (4.40-5.90); RED CELL DISTRIBUTION WIDTH 14.1 % (11.5-14.5); WHITE BLOOD COUNT 3.1 K/uL (4.8-10.8)
[2018-05-07 21:38] LABS: ALB/GLOB RATIO 1.2 (1.0-2.1); ALBUMIN 4.1 g/dL (3.5-5.0); ALT/SGPT 64 U/L (21-72); AST/SGOT 154 U/L (17-59); BLOOD UREA NITROGEN 21 mg/dl (9-20); GFR NON-AFRICAN AMERICAN > 60
[2018-05-07 21:55] LABS: URINE BILIRUBIN NEGATIVE (NEGATIVE); URINE BLOOD SMALL (NEGATIVE); URINE CLARITY CLEAR (Clear); URINE COLOR STRAW (YELLOW); URINE GLUCOSE (UA) NEG (NEGATIVE); URINE LEUKOCYTE ESTERASE NEG Leu/uL (Negative); URINE PROTEIN 100 mg/dL (NEGATIVE); URINE UROBILINOGEN 0.2-1.0 mg/dL (0.2-1.0)
[2018-05-07 21:59] LABS: BARBITURATES, UR NEGATIVE (NEGATIVE); BENZODIAZEPINES, UR NEGATIVE (NEGATIVE); OPIATES, UR NEGATIVE (NEGATIVE); PHENCYCLIDINE, UR NEGATIVE (NEGATIVE)
--- NOTE | 2018-05-07 23:57 | ED PDOC ---
- Laboratory Results Result Diagrams: 05/07/18 21:19 05/07/18 21:19 Lab Results: Troponin I 0.0250 ng/mL (0.00-0.120) 05/07/18 21: Total Bilirubin 0.7 mg/dl (0.2-1.3) 05/07/18 21: AST 154 U/L (17-59) H 05/07/18 21: ALT 64 U/L (21-72) 05/07/18 21: Alkaline Phosphatase 83 U/L (38-126) 05/07/18 21: Total Protein 7.6 G/DL (6.3-8.2) 05/07/18 21: Albumin 4.1 g/dL (3.5-5.0) 05/07/18 21: Globulin 3.5 gm/dL (2.2-3.9) 05/07/18 21: Albumin/Globulin Ratio 1.2 (1.0-2.1) 05/07/18 21:19 Urine Color Straw (YELLOW) 05/07/18 21:35 Urine Clarity Clear (Clear) 05/07/18 21:35 Urine pH 6.0 (5.0-8.0) 05/07/18 21:35 Ur Specific [place] 1.005 (1.003-1.030) 05/07/18 21:35 Urine Protein 100 mg/dL (NEGATIVE) 05/07/18 21:35 Urine Glucose (UA) Neg mg/dL (NEGATIVE) 05/07/18 21:35 Urine Ketones Negative mg/dL (NEGATIVE) 05/07/18 21:35 Urine Blood Small (NEGATIVE) 05/07/18 21:35 Urine Nitrate Negative (NEGATIVE) 05/07/18 21:35 Urine Bilirubin Negative (NEGATIVE) 05/07/18 21:35 Urine Urobilinogen 0.2-1.0 mg/dL (0.2-1.0) 05/07/18 21:35 Ur Leukocyte Esterase Neg Usman/uL (Negative) 05/07/18 21:35 Urine RBC (Auto) 1 /hpf (0-3) 05/07/18 21:35 - ECG O2 Sat by Pulse Oximetry: 98 (RA) Medical Decision Making Medical Decision Making: Patient endorsed to me by ANGELIKA Hodges pending repeat Troponin, clinical sobriety and Crisis evaluation Repeat ETOH 263 @ 1:50am Trop: 0.16 from 0.25 05:00am: re-evaluated, continues to have chest pain, reproducible on palpation of chest, given Ibuprofen 600mg PO x 1. Speaking in full sentences, alert and oriented. Continues to endorse SI. Crisis evaluation ordered. 06:30am: seen by crisis, patient to be discharged with diagnosis of alcohol- induced disorder as per Dr. Rocha. Patient ambulating with steady gait. STable for d/c home. Disposition Discussed With DrMalcolm: Ten Rocha - Clinical Impression Clinical Impression: Alcohol intoxication, Hypertension - POA Present On Arrival: None - Disposition Disposition: Routine/Home Disposition Time: 06:54 Condition: STABLE Forms: [employer] (Lithuanian)
[2018-05-08 02:30] LABS: TROPONIN I 0.016 ng/mL (0.00-0.120)
[2018-05-08] MEDS ORDERED: Sodium Chloride 0.9% 1,000 ML IV SCH (03:15)
[2018-05-08 07:09] VITALS: BP 131/81; PULSE 78; RESP 18; TEMP 98.4; O2SAT 99
--- NOTE | 2018-05-08 08:35 | RAD ---
Date of service: 05/07/2018 HISTORY: chest pain COMPARISON: No prior. FINDINGS: LUNGS: No active pulmonary disease. PLEURA: No significant pleural effusion identified, no pneumothorax apparent. CARDIOVASCULAR: No aortic atherosclerotic calcification present. Normal cardiac size. No pulmonary vascular congestion. OSSEOUS STRUCTURES: No significant abnormalities. VISUALIZED UPPER ABDOMEN: Normal. OTHER FINDINGS: None. IMPRESSION: No active disease.
--- NOTE | 2018-05-09 01:23 | CARD ---
APPROVED REPORT Date of service: 05/07/2018 EKG Measurement Heart [id number] <Conclusion> Normal sinus rhythm Possible Left atrial enlargement Left ventricular hypertrophy Nonspecific T wave abnormality Abnormal ECG
== END 2018-05-08 07:07 | disposition home or self-care (01) ==
LOC: SUPCPDRO 18:47 → H.ER 18:47
DX: F10.129 Alcohol abuse with intoxication, unspecified (principal); I10 Essential (primary) hypertension; E78.00 Pure hypercholesterolemia, unspecified; Z79.82 Long term (current) use of aspirin
CPT/HCPCS: 71045; 80053; 80320; 80324; 80345; 80346; 80349; 80353; 80358; 80361; 81003; 82948; 83992; 84484; 85025; 93005; 99284; J7030